=== PATIENT | male | born 1935 | race Caucasian/White ===

== ENCOUNTER → 2016-09-13 | Outpatient (CLI) | payer MEDICARE, BC ==
--- NOTE | 2016-09-14 13:30 | PE ---
EXAMINATION TYPE: PET CT fusion skull to thigh DATE OF EXAM: 09/13/2016 1:59 PM CLINICAL HISTORY: 80-year-old male restaging for lymph nodes, lung and prostate cancer. Last chemothe rapy in October 2015, last radiation therapy to the groin in 2009, and previous surgery in October. TECHNIQUE: Following the intravenous administration of 15.0 mCi of F-18 FDG, whole body images are performed from the skull base to the midthigh. Images are reviewed on the computer in the coronal, a xial, and sagittal planes. Reconstructed rotating images are created on independent workstation and reviewed on the computer. A localization and attenuation correction CT is performed in conjunction with the PET scan. Glucose level: 88 mg/dL COMPARISON: 08/13/2016 and 05/06/2016 FINDINGS: PET: Redemonstrated mediastinal lymphadenopathy in the high and low right paratracheal regions, precarinal region, and right tracheobronchial angle showing variable intense hypermetabolism, maximal SUV 7.1. These measure up to 1.8 cm. There are postsurgical changes of right upper lobectomy with chronic fibrotic changes throughout the lungs. A new 4 mm anterior left upper lobe pulmonary nodule axial image 74 shows faint FDG activity (maximum SUV 1.1). A 5 mm pulmonary nodule superior segment left lower lobe appears new from 05/06/2016 and a small 4 mm m edial left midlung pulmonary nodule also on axial image 85 not clearly seen on the most recent prior. These show no discrete FDG uptake. Hypodense lesions within both kidneys show no FDG uptake compatible with cysts. Physiologic FDG uptak e within the abdomen and pelvis. There is a new lytic lesion within the central L4 vertebral body with intense hypermetabolism, maximu m SUV 10.0. There is mild focal FDG uptake, maximal SUV 2.3, along the right posterolateral seventh rib which cou ld be posttraumatic or could represent early metastatic disease. ATTENUATION CORRECTION CT: Visualized paranasal sinuses and mastoid air cells are clear. No cervical lymphadenopathy seen. Heart remains upper limits of normal in size without pericardial effusion. Coronary vessel calcificat ions are marker for coronary artery disease. Fluid within basilar pericardial recesses. Similar ectas ia of the ascending aorta and 3.8 cm. Small to moderate-sized hiatal hernia. There is duplex right renal collecting system with atrophy of the right lower pole. 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 Left h emicolonic diverticulosis greatest in the sigmoid colon. Central prostatic calcifications. No abnormal fluid collection in the pelvis or pelvic lymphadenopath y seen. Bones: Degenerative changes throughout the spine with a levoconvex curvature. IMPRESSION: 1. Hypermetabolic and enlarged mediastinal lymphadenopathy measuring up to 1.8 cm and a new lytic les ion within L4 vertebral body compatible with metastatic disease. 2. Approximately 3 pulmonary nodules in the left lung measure up to 5 mm and were not clearly seen on the CT of 05/06/2016. One within the upper lobe shows faint FDG uptake. Metastatic pulmonary nodules n ot excluded. 3. Mild focal hypermetabolism within the right posterolateral seventh rib could be posttraumatic or c ould represent an additional focus of osseous metastatic disease. 4. 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
== END | disposition home or self-care (01) ==
LOC: RADPETMAIN 11:14
PROVIDERS: ATTEND Internal Medicine Hematology & Oncology
DX: C34.90 Malignant neoplasm of unspecified part of unspecified bronchus or lung (principal); R59.0 Localized enlarged lymph nodes; R91.8 Other nonspecific abnormal finding of lung field; J43.9 Emphysema, unspecified; E84.9 Cystic fibrosis, unspecified; Z90.2 Acquired absence of lung [part of]; K44.9 Diaphragmatic hernia without obstruction or gangrene; K57.30 Diverticulosis of large intestine without perforation or abscess without bleeding; I72.3 Aneurysm of iliac artery
CPT/HCPCS: 78815; A9552

== ENCOUNTER 2016-10-17 11:39 | Inpatient (IN) | payer MEDICARE, BC ==
[2016-10-17] MEDS ORDERED: SODIUM CHLORIDE 0.9% 1,000 ML IV STA ×2 (12:20)
[2016-10-17] MEDS ORDERED: IPRATROPIUM 0.5 MG/2.5 ML NEBU INHALATION STA (12:20)
[2016-10-17] MEDS ORDERED: ALBUTEROL NEBULIZED 2.5 MG/3 ML INHALATION STA (12:20)
[2016-10-17 12:46] LABS: Basophils % (A) 0 %; CHCM 32.3; Eosinophils % (A) 0 %; HCT 35.2 % (39.0-53.0); HDW 2.74; HGB 11.4 gm/dL (13.0-17.5); Luc % (Auto) 1; Lymphocytes # (A) 0.6 k/uL (1.0-4.8); Lymphocytes % (A) 5 %; MCH 31.2 pg (25.0-35.0); MCHC 32.3 g/dL (31.0-37.0); MCV 96.5 fL (80.0-100.0); Mean Platelet Volume 7.3; Monocytes # (A) 0.2 k/uL (0-1.0); Monocytes % (A) 2 %; Neutrophils # (A) 10.3 k/uL (1.3-7.7); Neutrophils % (A) 92 %; RBC 3.65 m/uL (4.30-5.90); RDW 14.8 % (11.5-15.5); WBC 11.3 k/uL (3.8-10.6); WBC (Perox) 11.16
[2016-10-17 12:57] LABS: Alkaline Phosphatase 116 U/L (38-126); Anion Gap 19 mmol/L; Blood Urea Nitrogen 37 mg/dL (9-20); Calcium 9.1 mg/dL (8.4-10.2); Carbon Dioxide 21 mmol/L (22-30); Chloride 95 mmol/L (98-107); Glucose 176 mg/dL (74-99); Magnesium 2.2 mg/dL (1.6-2.3); Non-African American GFR(MDRD) >60 (>60 ml/min/1.73 sqM); Potassium 5.3 mmol/L (3.5-5.1); Sodium 135 mmol/L (137-145); Total Bilirubin 1.3 mg/dL (0.2-1.3)
--- NOTE | 2016-10-17 12:58 | ED ---
General Adult HPI - General Chief complaint: Shortness of Breath Stated complaint: SOB, LOSS OF APPETITE, Hx LUNG Ca Time Seen by Provider: 10/17/16 12:03 Source: patient, RN notes reviewed, old records reviewed Mode of arrival: wheelchair Limitations: no limitations - History of Present Illness Initial comments: This is a 80-year-old male the ER for evaluation of severe shortness of breath, severe shortness of breath cough congestion. Patient does have significant history of lung CA and he does to breathe and she was at home with no help. Patient himself denies any fevers, family states he that increasing weakness and decreased activity level for about 2-3 days now. Patient does have recurrence of cancer now on his left thigh. No chest pain. No abdominal pain. - Related Data Home Medications Medication Instructions Recorded Confirmed Omeprazole 20 mg PO DAILY 12/30/15 10/17/16 Tamsulosin HCl [Flomax] 0.4 mg PO DAILY 12/30/15 10/17/16 ALPRAZolam [Xanax] 0.5 mg PO DAILY PRN 10/17/16 10/17/16 Acetaminophen [Tylenol] 500 mg PO Q4-6H PRN 10/17/16 10/17/16 Albuterol Inhaler [Ventolin Hfa 2 puff INHALATION RT-Q4H PRN 10/17/16 10/17/16 Inhaler] Folic Acid 1 mg PO SUMOTUWEFRSA 10/17/16 10/17/16 Hydroxychloroquine Sulfate 200 mg PO BID 10/17/16 10/17/16 [Plaquenil] Methotrexate Sodium (Pf) 25 mg INJ TH 10/17/16 10/17/16 [Methotrexate 25 mg/ml Vial] Multivitamins, Thera [Multivitamin] 1 tab PO DAILY 10/17/16 10/17/16 Allergies Allergy/AdvReac Type Severity Reaction Status Date / Time No Known Allergies Allergy Verified 10/17/16 12:57 Review of Systems ROS Statement: Those systems with pertinent positive or pertinent negative responses have been documented in the HPI. ROS Other: All systems not noted in ROS Statement are negative. 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, hx prostate cancer-tx with radiation, lung CA with chemo last treatment 12/22/15 History of Any Multi-Drug Resistant Organisms: None Reported Past Surgical History: Hernia Repair, Tonsillectomy Additional Past Surgical History / Comment(s): Chemo, radiation, Right lung lobectomy in 10/2015 Past Anesthesia/Blood Transfusion Reactions: No Reported Reaction Past Psychological History: No Psychological Hx Reported Smoking Status: Former smoker Past Alcohol Use History: None Reported Additional Past Alcohol Use History / Comment(s): quit smoking 07/2015 Past Drug Use History: None Reported - Past Family History Mother History Unknown: Yes Family Medical History: No Reported History Additional Family Medical History / Comment(s): Adopted General Exam Limitations: no limitations General appearance: alert, in distress, cachectic Head exam: Present: atraumatic, normocephalic, normal inspection Eye exam: Present: normal appearance, PERRL, EOMI. Absent: scleral icterus, conjunctival injection, periorbital swelling ENT exam: Present: mucous membranes dry Neck exam: Present: normal inspection. Absent: tenderness, meningismus, lymphadenopathy Respiratory exam: Present: respiratory distress, wheezes, accessory muscle use, decreased breath sounds, prolonged expiratory. Absent: rales, rhonchi, stridor Cardiovascular Exam: Present: regular rate, normal rhythm, normal heart sounds. Absent: systolic murmur, diastolic murmur, rubs, gallop, clicks GI/Abdominal exam: Present: soft, normal bowel sounds. Absent: distended, tenderness, guarding, rebound, rigid Extremities exam: Present: normal inspection, full ROM, normal capillary refill. Absent: tenderness, pedal edema, joint swelling, calf tenderness Back exam: Present: normal inspection Neurological exam: Present: alert, oriented X3, CN II-XII intact Psychiatric exam: Present: normal affect, normal mood Skin exam: Present: warm, dry, intact, normal color. Absent: rash Course Vital Signs 10/17/16 10/17/16 10/17/16 11:51 13:03 13:19 Temperature 97.2 F L Pulse Rate 114 H 109 H 111 H Respiratory 24 Rate Blood Pressure 128/86 O2 Sat by Pulse 93 L Oximetry 10/17/16 13:48 Temperature Pulse Rate 109 H Respiratory Rate Blood Pressure O2 Sat by Pulse Oximetry - Reevaluation(s) Reevaluation #1: 10/17/16 14:25 Patient with mild improvement of breathing treatment EKG Findings - EKG Comments: EKG Findings:: EKG shows sinus tachycardia rate 113, IN 120, QRS 90, QTC 425 Medical Decision Making - Medical Decision Making 80 male the ER for evaluation of shortness of breath, weakness for 2-3 days progressing, patient does have pneumonia we'll treat with antibiotics. Treatments IV fluids and supportive care. Patient also found to be hypoxic woke keep on continuous pulse ox and admitted for cardiopulmonary monitoring and monitoring of hemodynamic status - Lab Data Result diagrams: 10/17/16 12:34 10/17/16 12:34 Lab Results 10/17/16 10/17/16 10/17/16 Range/Units 12:34 12:34 12:34 WBC 11.3 H (3.8-10.6) k/uL RBC 3.65 L (4.30-5.90) m/uL Hgb 11.4 L (13.0-17.5) gm/dL Hct 35.2 L (39.0-53.0) % MCV 96.5 (80.0-100.0) fL MCH 31.2 (25.0-35.0) pg MCHC 32.3 (31.0-37.0) g/dL RDW 14.8 (11.5-15.5) % Plt Count 312 (150-450) k/uL Neutrophils % 92 % Lymphocytes % 5 % Monocytes % 2 % Eosinophils % 0 % Basophils % 0 % Neutrophils # 10.3 H (1.3-7.7) k/uL Lymphocytes # 0.6 L (1.0-4.8) k/uL Monocytes # 0.2 (0-1.0) k/uL Eosinophils # 0.0 (0-0.7) k/uL Basophils # 0.0 (0-0.2) k/uL PT (9.0-12.0) sec INR (<1.1) APTT (22.0-30.0) sec Sodium 135 L (137-145) mmol/L Potassium 5.3 H (3.5-5.1) mmol/L Chloride 95 L (98-107) mmol/L Carbon Dioxide 21 L (22-30) mmol/L Anion Gap 19 mmol/L BUN 37 H (9-20) mg/dL Creatinine 1.14 (0.66-1.25) mg/dL Est GFR (MDRD) Af Amer >60 (>60 ml/min/1.73 sqM) Est GFR (MDRD) Non-Af >60 (>60 ml/min/1.73 sqM) Glucose 176 H (74-99) mg/dL Calcium 9.1 (8.4-10.2) mg/dL Magnesium 2.2 (1.6-2.3) mg/dL Total Bilirubin 1.3 (0.2-1.3) mg/dL AST 2201 H (17-59) U/L ALT 2607 H (21-72) U/L Alkaline Phosphatase 116 (38-126) U/L Total Creatine Kinase 54 L (55-170) U/L CK-MB (CK-2) 0.7 (0.0-2.4) ng/mL CK-MB (CK-2) Rel Index 1.3 Troponin I <0.012 (0.000-0.034) ng/mL NT-Pro-B Natriuret Pep pg/mL Total Protein 7.0 (6.3-8.2) g/dL Albumin 3.8 (3.5-5.0) g/dL 10/17/16 10/17/16 Range/Units 12:34 12:34 WBC (3.8-10.6) k/uL RBC (4.30-5.90) m/uL Hgb (13.0-17.5) gm/dL Hct (39.0-53.0) % MCV (80.0-100.0) fL MCH (25.0-35.0) pg MCHC (31.0-37.0) g/dL RDW (11.5-15.5) % Plt Count (150-450) k/uL Neutrophils % % Lymphocytes % % Monocytes % % Eosinophils % % Basophils % % Neutrophils # (1.3-7.7) k/uL Lymphocytes # (1.0-4.8) k/uL Monocytes # (0-1.0) k/uL Eosinophils # (0-0.7) k/uL Basophils # (0-0.2) k/uL PT 16.3 H (9.0-12.0) sec INR 1.7 (<1.1) APTT 19.8 L (22.0-30.0) sec Sodium (137-145) mmol/L Potassium (3.5-5.1) mmol/L Chloride (98-107) mmol/L Carbon Dioxide (22-30) mmol/L Anion Gap mmol/L BUN (9-20) mg/dL Creatinine (0.66-1.25) mg/dL Est GFR (MDRD) Af Amer (>60 ml/min/1.73 sqM) Est GFR (MDRD) Non-Af (>60 ml/min/1.73 sqM) Glucose (74-99) mg/dL Calcium (8.4-10.2) mg/dL Magnesium (1.6-2.3) mg/dL Total Bilirubin (0.2-1.3) mg/dL AST (17-59) U/L ALT (21-72) U/L Alkaline Phosphatase (38-126) U/L Total Creatine Kinase (55-170) U/L CK-MB (CK-2) (0.0-2.4) ng/mL CK-MB (CK-2) Rel Index Troponin I (0.000-0.034) ng/mL NT-Pro-B Natriuret Pep 560 pg/mL Total Protein (6.3-8.2) g/dL Albumin (3.5-5.0) g/dL - Radiology Data Radiology results: report reviewed (Chest x-ray two-view positive for pneumonia) , image reviewed Critical Care Time Critical Care Time: Yes Total Critical Care Time: 31 Disposition Clinical Impression: Community acquired pneumonia, Acute exacerbation of chronic obstructive airways disease, Non-small cell lung cancer (NSCLC) Disposition: ADMITTED IP TO THIS HOSP Condition: Fair Referrals: Lisseth Mcginnis MD [Primary Care Provider] - 1-2 days
[2016-10-17 13:07] LABS: Creatine Kinase 54 U/L (55-170)
--- NOTE | 2016-10-17 13:07 | XR ---
EXAMINATION TYPE: XR chest 2V DATE OF EXAM: 10/17/2016 12:51 PM COMPARISON: Chest x-ray December 30, 2015. CT cap August 13, 2016. HISTORY: Difficulty in breathing. History of lung cancer. TECHNIQUE: Frontal and lateral views of the chest are obtained. FINDINGS: The osseous structures are demineralized. Degenerative change of both shoulders is redemon strated. There is persistent cardiomegaly with atherosclerotic and slightly ectatic thoracic aorta. T here is elevated anterior right hemidiaphragm with chronic parenchymal change redemonstrated bilatera lly. Some new mild interstitial edema may be present bilaterally. Some increased opacity right lung b ase is noted. No large pleural effusion or pneumothorax is present. IMPRESSION: Chronic parenchymal change and cardiomegaly with suspected mild new interstitial edema b ilaterally. Acute right basilar atelectasis and/or infiltrate is difficult to entirely exclude.
[2016-10-17 13:10] LABS: INR 1.7 (<1.1); Prothrombin Time 16.3 sec (9.0-12.0)
[2016-10-17 13:20] LABS: Creatine Kinase MB 0.7 ng/mL (0.0-2.4); Troponin I <0.012 ng/mL (0.000-0.034)
[2016-10-17 13:24] LABS: Partial Thromboplastin Time 19.8 sec (22.0-30.0)
[2016-10-17 13:27] LABS: ALT 2607 U/L (21-72); AST 2201 U/L (17-59)
[2016-10-17] MEDS ORDERED: PNEUMONIA PROTOCOL UTILIZED 1 EACH MISC PO PRN (14:23)
[2016-10-17] MEDS ORDERED: LEVOFLOXACIN 750MG-D5W PMX 750 MG in DEXTROSE/WATER 1 150ML.BAG IVPB STA (14:23)
[2016-10-17] MEDS ORDERED: RX INFO: IV CONTRAST WAS GIVEN 1 EACH MISC MISCELLANE PRN (14:40)
--- NOTE | 2016-10-17 16:02 | CT ---
EXAMINATION TYPE: CT angio chest DATE OF EXAM: 10/17/2016 3:33 PM COMPARISON: NONE HISTORY: Difficulty breathing, pneumonia CT DLP: 346.50 mGycm Automated exposure control for dose reduction was used. CONTRAST: CTA scan of the thorax is performed with IV Contrast, patient injected with 100 mL of Omnipaque 350, pulmonary embolism protocol. MIP images are created and reviewed. 3D reconstructed images are creat ed on an independent workstation and reviewed. FINDINGS: LUNGS: There are areas of consolidation within the lungs bilaterally with areas of bronchiectasis, ho neycombing and emphysema are present especially towards the lung bases. There are areas of pleural th ickening, minimal pleural effusions may be present. There may be some localized atelectasis or alveol itis. Subcentimeter and borderline centimeter nodules are present at the posterior lung bases. 11 mm nodules are present bilaterally and the largest seen. These are noncalcified. AORTA: No additional significant abnormality is seen. MEDIASTINUM: There is a large pericardial effusion present. This is developed in the interval. Extens ebony soft tissue within the mediastinum is noted, this may represent adenopathy. Apparent narrowing of the right pulmonary artery due to mass effect is similar to prior exam, subcarinal soft tissue is th ought to progressed in the interval. OTHER: Inferior vena cava is dilated. Posterior right-sided rib fracture shows minimal displacement at seventh rib posterior laterally, cortex is somewhat irregular, difficult to exclude a pathologic f racture. There may be gynecomastia change greater on the right. IMPRESSION: INTERVAL DEVELOPMENT OF A LARGE PERICARDIAL EFFUSION. METASTATIC DISEASE IS SUSPECTED. FINDINGS NIMA DAILY WITH PATIENT'S HISTORY OF LUNG CARCINOMA. Report related to patient's nurse, telephonically at the time of performance of the exam to
[2016-10-17] MEDS ORDERED: ALPRAZolam 0.5 MG TAB PO PRN (16:07)
[2016-10-17] MEDS ORDERED: ACETAMINOPHEN TAB 500 MG TAB PO PRN (16:07)
[2016-10-17] MEDS ORDERED: ALBUTEROL NEBULIZED 2.5 MG/3 ML INHALATION PRN (16:09)
[2016-10-17 17:05] LABS: Glucose,Whole Blood 137 mg/dL (75-99)
[2016-10-17] MEDS: IPRATROPIUM-ALBUTEROL 3 ML NEB INHALATION SCH ×2 (17:20→19:55)
[2016-10-17] MEDS: SODIUM CHLORIDE 0.9% 1,000 ML IV SCH (17:35)
[2016-10-17] MEDS: PANTOPRAZOLE 40 MG TABLET PO SCH (19:27)
[2016-10-17] MEDS: MULTIVITAMINS, THERA 1 EACH TAB PO SCH (19:27)
[2016-10-17] MEDS: FOLIC ACID 1 MG TAB PO SCH (19:27)
[2016-10-17] MEDS: TAMSULOSIN 0.4 MG CAP.ER.24H PO SCH (19:27)
[2016-10-17] MEDS: INSULIN LISPRO (humaLOG) 300 UNIT/3 ML VIAL SQ SCH ×2 (19:28→21:56)
--- NOTE | 2016-10-17 19:59 | ECHOF ---
Referral Reason:pericardial effusion MEASUREMENTS -------- HEIGHT: 157.5 cm WEIGHT: 83.9 kg BP: MV E Vincent: 0.55 m/s MV DecT: 302 ms MV A Vincent: 0.91 m/s MV E/A Ratio: 0.60 AV maxP.55 mmHg AV meanP.82 mmHg RAP: 5.00 mmHg RVSP: 47.77 mmHg FINDINGS -------- Undetermined rhythm. This was a technically adequate study. Overall left ventricular systolic function is low-normal with, an EF between 50 - 55 %. The right ventricle is normal in size. The left atrial size is normal. The right atrial size is normal. Peak/mean gradient across the Aortic Valve is 36.55mmHg / 16.82mmHg. Aov is stenotic with decrease opening. The aortic root size is normal. There is a large, generalized pericardial effusion present. There is no evidence of cardiac tamponade. RT ATRIAL COLLAPSE NOTED. CONCLUSIONS -------- 1. Overall left ventricular systolic function is low-normal with, an EF between 50 - 55 %. 2. Peak/mean gradient across the Aortic Valve is 36.55mmHg / 16.82mmHg. 3. Aov is stenotic with decrease opening. 4. There is a large, generalized pericardial effusion present. 5. There is no evidence of cardiac tamponade. INDUSTRIAL PARAMEDIC: Loretta Parikh RDCS
[2016-10-17 20:23] LABS: Glucose,Whole Blood 88 mg/dL (75-99)
--- NOTE | 2016-10-17 21:38 | CONS ---
DATE OF CONSULTATION: REASON FOR CONSULTATION: Pericardial effusion. This is a 80-year-old gentleman who presented to the emergency room with increasing shortness of breath that was going on for the last week or so, much worse probably in the last 2 days. He has history of lung cancer, status post right upper lobectomy for [id number] cancer performed about a year or less ago at [facility]. He sees Dr. Bravo from a pulmonary standpoint and Dr. Junior from oncology standpoint. Apparently they were considering performing lymph node biopsies to assess for any recurrence or spread of his lung cancer. However, his shortness of breath brought him to the hospital and a chest CT angiography was performed that revealed a large pericardial effusion with possibility of metastatic disease. I was asked to see him in this regard. Clinical evaluation suggests that patient is short of breath but not in severe distress. He is resting and he is able to talk continuously without having to hold his breath. He has no chest pain. He does not have any palpitations, syncope or near-syncope. PAST MEDICAL HISTORY: 1. Lung cancer, status post right upper lobectomy. 2. History of rheumatoid arthritis. 3. History of prostate cancer, status post radiation therapy for prostate cancer. 4. History of right upper lobectomy almost a year ago. He is a former smoker but does not consume alcohol on a regular basis. Medications at home include: 1. Flomax. 2. Xanax. 3. Albuterol. 4. Plaquenil. 5. Folic acid. 6. Methotrexate. 7. Omeprazole. 8. Multivitamins. ALLERGIES: NO KNOWN DRUG ALLERGIES. On examination, blood pressure 130/70. Pulse rate is about 80 per minute, sinus. HEENT unremarkable. Fundus was not examined by me. Neck is supple. There is a significant JVD noted. There is no carotid bruit. There is no evidence of any pulsus paradoxus. Heart exam reveals S1, S2, somewhat of a quiet precordium with an ejection systolic murmur at the base of the heart. Lungs reveal diminished air entry both bases, especially left base and right upper zone. Abdomen is soft, nontender. Lower extremities reveal diminished pulses. Central nervous system is grossly within normal limits. EKG revealed a sinus mechanism, minor nonspecific ST-T changes. Echocardiogram revealed a very large pericardial effusion with right atrial collapse in diastole. Right ventricular collapse is not evident. Laboratory data suggest elevated PT and also significantly elevated liver function tests, probably as a result of congestion of over 2000. IMPRESSION: 1. Large pericardial effusion with a near-tamponade physiology without actual tamponade. Patient is maintaining blood pressure very well and there is no pulsus paradoxus. 2. History of lung carcinoma, status post right upper lobectomy, [id number] cancer, under the care of Dr. Junior. 3. Mild aortic stenosis clinically and also based on echocardiogram. 4. History of prostate cancer with radiation therapy. RECOMMENDATIONS: I am recommending that we should proceed with pericardial window and also a tissue diagnosis if possible. I discussed this with the patient and his significant other and also talked to Dr. Hays by phone. They are all in agreement, and hopefully the procedure will be performed tomorrow. Will keep the patient n.p.o. after midnight. Prognosis remains guarded. Will seek input from Dr. Junior from the oncology standpoint as well.
[2016-10-17 21:40] LABS: Hemoglobin A1C 5.7 % (4.2-6.1)
[2016-10-17] MEDS: methylPREDNISolone SOD SUCCI 40 MG/ML 1 ML VIAL IV SCH (21:56)
[2016-10-17] MEDS: HYDROXYCHLOROQUINE SULFATE 200 MG TAB PO SCH (21:57)
[2016-10-18] MEDS ORDERED: DILTIAZEM 5 MG/ML 5 ML VIAL IVP STA ×2 (03:33→12:30)
[2016-10-18] MEDS: DILTIAZEM 125 MG in SODIUM CHLORIDE 0.9% 100 ML IV SCH ×2 (03:55→12:59)
[2016-10-18] MEDS: SODIUM CHLORIDE 0.9% 1,000 ML IV SCH ×2 (03:56→17:44)
[2016-10-18 05:06] LABS: Basophils % (A) 0 %; CH 30.9; Eosinophils % (A) 0 %; HCT 35.7 % (39.0-53.0); HDW 2.67; HGB 11.3 gm/dL (13.0-17.5); Luc # (Auto) 0.09; Luc % (Auto) 1; Lymphocytes # (A) 0.4 k/uL (1.0-4.8); Lymphocytes % (A) 4 %; MCH 30.7 pg (25.0-35.0); MCHC 31.6 g/dL (31.0-37.0); MCV 97.1 fL (80.0-100.0); Mean Platelet Volume 7.6; Monocytes # (A) 0.2 k/uL (0-1.0); Monocytes % (A) 1 %; Neutrophils % (A) 94 %; RBC 3.68 m/uL (4.30-5.90); RDW 14.4 % (11.5-15.5); WBC 10.7 k/uL (3.8-10.6); WBC (Perox) 11.41
[2016-10-18 05:08] LABS: INR 2.2 (<1.1); Prothrombin Time 21.4 sec (9.0-12.0)
[2016-10-18 05:16] LABS: Alkaline Phosphatase 112 U/L (38-126); Anion Gap 19 mmol/L; Blood Urea Nitrogen 39 mg/dL (9-20); Calcium 8.8 mg/dL (8.4-10.2); Carbon Dioxide 15 mmol/L (22-30); Chloride 99 mmol/L (98-107); Glucose 120 mg/dL (74-99); Non-African American GFR(MDRD) >60 (>60 ml/min/1.73 sqM); Potassium 5.4 mmol/L (3.5-5.1); Sodium 133 mmol/L (137-145); Total Bilirubin 2.4 mg/dL (0.2-1.3); Total Protein 6.6 g/dL (6.3-8.2)
[2016-10-18 05:42] LABS: ALT 4340 U/L (21-72); AST 3396 U/L (17-59)
[2016-10-18] MEDS: IPRATROPIUM-ALBUTEROL 3 ML NEB INHALATION SCH ×2 (07:38→10:50)
--- NOTE | 2016-10-18 08:08 | XR ---
EXAMINATION TYPE: XR chest 1V portable DATE OF EXAM: 10/18/2016 6:51 AM CLINICAL HISTORY: Difficulty breathing progress study. History of lung and prostate cancer. TECHNIQUE: Single AP portable upright view of the chest is obtained. COMPARISON: Chest x-ray and CTA chest from one day earlier FINDINGS: Osseous structures remain demineralized. Degenerative changes in both shoulders is again s een. There is persistent cardiomegaly without sclerotic and ectatic thoracic aorta. There is persiste nt elevated right hemidiaphragm chronic parenchymal changes seen bilaterally most pronounced in the l abelardo bases. Some areas of acute infiltrate and right lung are difficult to exclude. No large pleural e ffusion or pneumothorax is seen bilaterally. No significant change from prior study is identified. IMPRESSION: Overall stable findings, cardiomegaly with chronic emphysematous change and parenchymal fibrosis, areas of acute infiltrate particularly in the right lung base are difficult to exclude.
[2016-10-18] MEDS: INSULIN LISPRO (humaLOG) 300 UNIT/3 ML VIAL SQ SCH ×4 (08:13→21:16)
[2016-10-18 08:14] LABS: Glucose,Whole Blood 128 mg/dL (75-99)
[2016-10-18] MEDS: PANTOPRAZOLE 40 MG TABLET PO SCH (08:14)
[2016-10-18] MEDS ORDERED: ENOXAPARIN 40 MG/0.4 ML SYRINGE SQ SCH (09:00)
[2016-10-18] MEDS ORDERED: SODIUM BICARB 8.4% 50 ML SYR (1 MEQ/ML) IV STA (09:32)
[2016-10-18] MEDS ORDERED: CALCIUM GLUCONATE 1,000 MG in SODIUM CHLORIDE 0.9% 100 ML IVPB STA (09:32)
[2016-10-18] MEDS ORDERED: ceFAZolin 2 GM in SODIUM CHLORIDE 0.9% 100 ML IVPB ONE (09:45)
[2016-10-18] MEDS ORDERED: ETOMIDATE 2 MG/ML 10 ML VIAL ONE (10:19)
[2016-10-18] MEDS ORDERED: PHENYLEPHRINE-0.9% NACL SYG 1 MG/10 ML SYRINGE ONE (10:19)
[2016-10-18] MEDS ORDERED: MIDAZOLAM 2 MG/2 ML VIAL ONE (10:19)
[2016-10-18] MEDS ORDERED: ROCURONIUM BROMIDE 10 MG/ML 10 ML VIAL IV ONE (10:19)
[2016-10-18] MEDS ORDERED: fentaNYL (PF) 50 MCG/ML 2 ML AMP ONE (10:19)
[2016-10-18] MEDS ORDERED: SODIUM BICARB 8.4% 50 ML SYR (1 MEQ/ML) ONE (10:19)
[2016-10-18] MEDS ORDERED: LIDOCAINE 1% INJ 10MG/ML (20 ML MDV) ONE (10:19)
[2016-10-18] MEDS ORDERED: IV FLUID CONTINUATION 600 ML IV ONE (10:27)
[2016-10-18 10:31] LABS: ABG PCO2 20 mmHg (35-45); ABG PH 7.46 (7.35-7.45); ABG PO2 80 mmHg (83-108)
[2016-10-18 10:32] LABS: ABG Base Excess -9.4 mmol/L; ABG HCO3 14 mmol/L (21-25); ABG TCO2 14 mmol/L (19-24)
[2016-10-18] MEDS: HYDROXYCHLOROQUINE SULFATE 200 MG TAB PO SCH (10:50)
[2016-10-18] MEDS ORDERED: SODIUM CHLORIDE 0.9% 50 ML with ceFAZolin 2,000 MG IV ONE ×2 (10:55)
--- NOTE | 2016-10-18 10:57 | P.CNPUL ---
History of Present Illness Consult date: 10/18/16 Reason for consult: dyspnea, lung mass Chief complaint: Shortness of breath History of present illness: This is a 80-year-old male with a history of metastatic lung cancer. The patient apparently came with difficulty breathing. He was found to have a large pericardial effusion and may even have cardiac, tamponade. This morning, he was first off to the operating room for a pericardial window done by one of the thoracic surgeons. I was called about the patient last night. I spoke to one of the ER doctors last night. Initially, the patient did not want surgery. Unknot sure how it turned out that he ended up having surgery. Anyway the patient had an art line placed by the dissolver operator today. He was again he was rushed off to surgery. Dr. Nash was at the bedside as well as a dissolver operator the oncologist and also the thoracic surgeon. His past medical history includes metastatic lung cancer previously treated with lobectomy and chemo. He also apparently has a history of rheumatoid arthritis gastroesophageal reflux disease prostate cancer as well as some other minor more minor medical problems. In addition, he has had hernia repair tonsillectomy right upper lobectomy and prostate biopsy. Review of Systems A 12 point review of systems is positive for shortness of positive for decreased appetite and significant weight loss with weakness. Past Medical History Past Medical History: Cancer, COPD, GERD/Reflux, Pneumonia, Prostate Disorder, Rheumatoid Arthritis (RA) Additional Past Medical History / Comment(s): heart murmer as child, HIATAL HERNIA, CATARACTS,, CONSTIPATION,hx prostate cancer-tx with radiation, lung CA with chemo last treatment 12/22/15,"FOUND A SPOT ON MY SPINE AND A LYMPH NOSE" History of Any Multi-Drug Resistant Organisms: None Reported Past Surgical History: Hernia Repair, Tonsillectomy Additional Past Surgical History / Comment(s): BRONCHOCOSPY W/BX,Chemo, radiation AND Right lung lobectomy in 10/2015, PROSTATE BX, ELIJAH INGUINAL HERNIA REPAIR, CYST REMOVED FROM BACK. Past Anesthesia/Blood Transfusion Reactions: No Reported Reaction Past Psychological History: No Psychological Hx Reported Additional Psychological History / Comment(s): PT LIVES WITH DAUGHTER FREDY AND HER IVONNE, USES A CANE WHEN UP. NO OUTSIDE SERVICES. 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 Smoking Status: Former smoker Past Alcohol Use History: None Reported Additional Past Alcohol Use History / Comment(s): STARTED SMOKING AT AGE 15 , quit smoking 07/2015, HAD BEEN SMOKING 1 PPD Past Drug Use History: None Reported - Past Family History Mother History Unknown: Yes Family Medical History: No Reported History Additional Family Medical History / Comment(s): Adopted Medications and Allergies Home Medications Medication Instructions Recorded Confirmed Type Omeprazole 20 mg PO DAILY 12/30/15 10/17/16 History Tamsulosin HCl [Flomax] 0.4 mg PO DAILY 12/30/15 10/17/16 History ALPRAZolam [Xanax] 0.5 mg PO DAILY PRN 10/17/16 10/17/16 History Acetaminophen [Tylenol] 500 mg PO Q4-6H PRN 10/17/16 10/17/16 History Albuterol Inhaler [Ventolin Hfa 2 puff INHALATION RT-Q4H PRN 10/17/16 10/17/16 History Inhaler] Folic Acid 1 mg PO SUMOTUWEFRSA 10/17/16 10/17/16 History Hydroxychloroquine Sulfate 200 mg PO BID 10/17/16 10/17/16 History [Plaquenil] Methotrexate Sodium (Pf) 25 mg INJ TH 10/17/16 10/17/16 History [Methotrexate 25 mg/ml Vial] Multivitamins, Thera [Multivitamin] 1 tab PO DAILY 10/17/16 10/17/16 History Allergies Allergy/AdvReac Type Severity Reaction Status Date / Time No Known Allergies Allergy Verified 10/17/16 12:57 Physical Exam Osteopathic Statement: *. No significant issues noted on an osteopathic structural exam other than those noted in the History and Physical/Consult. Vitals: Vital Signs Temp Pulse Pulse Resp BP BP Pulse Ox 10/18/16 10:07 97.7 F 80 20 149/91 95 10/18/16 10:00 78 31 H 120/67 96 10/18/16 09:57 97.8 F 80 23 152/90 95 10/18/16 09:55 97.3 F L 106 H 20 138/64 95 10/18/16 09:32 97.3 F L 79 27 H 109/61 95 10/18/16 09:22 97.7 F 81 30 H 109/61 10/18/16 09:00 82 113/61 97 10/18/16 08:00 97.6 F 82 95 17 111/53 98 10/18/16 07:56 100 10/18/16 07:39 105 H 10/18/16 07:00 80 104/81 97 10/18/16 06:00 84 110/55 97 10/18/16 05:00 139 H 17 104/80 97 10/18/16 04:00 98.2 F 144 H 95 17 106/76 96 10/18/16 03:00 93 16 123/57 97 10/18/16 02:00 93 15 133/57 96 10/18/16 01:00 91 15 125/60 94 L 10/18/16 00:00 97 95 17 135/58 97 10/17/16 23:31 95 14 132/74 96 10/17/16 23:00 96 122/74 99 10/17/16 22:00 95 132/74 98 10/17/16 21:15 98.2 F 95 14 132/74 98 10/17/16 21:00 97 124/58 98 10/17/16 20:00 98.2 F 95 95 17 123/65 100 10/17/16 19:59 93 10/17/16 19:50 96 19 123/65 100 10/17/16 19:48 95 10/17/16 18:50 98 20 112/68 100 10/17/16 18:32 98 10/17/16 18:20 105 H 21 110/77 100 10/17/16 17:50 99 19 118/66 98 10/17/16 17:31 103 H 10/17/16 17:20 98.1 F 100 19 132/62 100 10/17/16 16:30 97.0 F L 107 H 20 113/65 97 10/17/16 14:47 97 F L 92 20 136/51 96 Intake and Output 10/17/16 10/18/16 10/18/16 22:59 06:59 14:59 Intake Total 225 600 522 Output Total 250 200 0 Balance -25 400 522 Intake: Intake, IV Titration 225 600 235 Amount Diltiazem 125 mg In 10 Sodium Chloride 0.9% 100 ml @ 10 MG/HR 10 mls/hr IV .[id number] [facility] Rx#: [id number] Sodium Chloride 0.9% 1, 225 525 000 ml @ 100 mls/hr IV . Q10H [facility] Rx#:[id number] Sodium Chloride 0.9% 1, 75 225 000 ml @ 75 mls/hr IV . [id number] [facility] Rx#:[id number] Blood Product 287 Ffp 24 Cpd Unit 287 [id number] Ffp 24 Cpd Unit 0 [id number] Output: Urine 250 200 0 Other: Voiding Method Urinal Urinal Urinal Weight 83.915 kg 80.7 kg 80.7 kg Patient Weight 10/19/16 06:59 Weight 80.7 kg ABP, PAP, CO, CI - Last 8 Hours Arterial Blood Pressure 137/82 No exam was performed. The patient was postop to surgery before had a chance to actually examine him. I'll examine him later today or tomorrow he is back from the operating room. Results - Laboratory Findings CBC and BMP: 10/18/16 04:42 10/18/16 04:42 ABG ABG pH 7.46 (7.35-7.45) H 10/18/16 10:03 ABG pCO2 20 mmHg (35-45) L* 10/18/16 10:03 ABG pO2 80 mmHg (83-108) L 10/18/16 10:03 ABG O2 Saturation 97.0 % (94-97) 10/18/16 10:03 PT/INR, D-dimer PT 21.4 sec (9.0-12.0) H 10/18/16 04:42 INR 2.2 (<1.1) 10/18/16 04:42 Abnormal lab findings: Abnormal Labs 10/17/16 10/18/16 10/18/16 17:03 04:42 04:42 WBC 10.7 H RBC 3.68 L Hgb 11.3 L Hct 35.7 L Neutrophils # 10.0 H Lymphocytes # 0.4 L PT 21.4 H ABG pH ABG pCO2 ABG pO2 ABG HCO3 ABG Total CO2 Sodium Potassium Carbon Dioxide BUN Glucose POC Glucose (mg/dL) 137 H Total Bilirubin AST ALT 10/18/16 10/18/16 10/18/16 04:42 07:57 10:03 WBC RBC Hgb Hct Neutrophils # Lymphocytes # PT ABG pH 7.46 H ABG pCO2 20 L* ABG pO2 80 L ABG HCO3 14 L ABG Total CO2 14 L Sodium 133 L Potassium 5.4 H Carbon Dioxide 15 L BUN 39 H Glucose 120 H POC Glucose (mg/dL) 128 H Total Bilirubin 2.4 H AST 3396 H ALT 4340 H - Diagnostic Findings Chest x-ray: image reviewed CT scan - chest: image reviewed (Chest x-ray labs medications are all reviewed.) Assessment and Plan (1) Cardiac tamponade Status: Acute (2) Pericardial effusion Status: Acute (3) Prostate cancer Status: Acute (4) Metastatic lung cancer (metastasis from lung to other site) Status: Acute (5) Non-small cell lung cancer (NSCLC) Status: Acute Plan: Plan dated 10/18/2016 The patient's taken to the operating room for emergent pericardial window. See the patient when he gets back to the operating room. Hopefully he'll be extubated in the recovery area. If not we'll continue to follow him here. Yesterday when I was initially called he was a DO NOT RESUSCITATE and did not want surgery. Obviously something changed to the night. We'll continue to follow. Prognosis is guarded. Time with Patient: Greater than 30
[2016-10-18 11:25] LABS: ABG Base Excess -5.8 mmol/L; ABG HCO3 19 mmol/L (21-25); ABG Oxygen Saturation 98.7 % (94-97); ABG PCO2 35 mmHg (35-45); ABG PH 7.35 (7.35-7.45); ABG PO2 178 mmHg (83-108)
[2016-10-18] MEDS ORDERED: LACTATED RINGERS 1,000 ML IV ONE (11:40)
[2016-10-18] MEDS ORDERED: Magnesium Replacement Protocol 1 EACH MISC MISCELLANE PRN (12:06)
[2016-10-18] MEDS ORDERED: Potassium Replacement Protocol 1 EACH MISC MISCELLANE PRN (12:06)
--- NOTE | 2016-10-18 12:12 | OP ---
DATE OF SERVICE: 10/18/2016 SURGEON: Bala Hays MD ANALYTICAL TECH: Cahrly Agustin, physician medical assistant dermatology. PREOPERATIVE DIAGNOSIS: Large pericardial effusion with early tamponade, rule out metastatic lung cancer. POSTOPERATIVE DIAGNOSIS: Large pericardial effusion with early tamponade, rule out metastatic lung cancer, pending pathology. OPERATION: Subxiphoid pericardiostomy. ANESTHESIA: ESTIMATED BLOOD LOSS: SPECIMENS REMOVED: COMPLICATIONS: OPERATIVE FINDINGS: INDICATION FOR SURGERY: The patient is a 80-year-old gentleman admitted with shortness of breath. A CAT scan performed showed a large pericardial effusion. A 2-D echo followed and that showed a very large pericardial effusion with early atrial collapse but no ventricular collapse. Patient was scheduled for pericardial window. In the interim, he had an episode of atrial fibrillation with rapid ventricular response with reasonable blood pressure. However, his liver function test shows very elevated liver enzymes and he has got a compensated metabolic acidosis on his blood gas. Patient has been taken for urgent subxiphoid pericardiostomy. Risks, benefits, and alternatives were discussed with him. He understood them and agreed to proceed. DESCRIPTION OF THE PROCEDURE: Patient was brought to the operating room and prepped and draped using DuraPrep before induction of anesthesia. He received 2 grams of cefazolin intravenously. Again the chest and abdomen prepped, induction followed with hemodynamic stability. A 6 cm incision was made centered on the tip of the xiphoid bone which was protruding. The midline fascia was opened and dissection proceeded preperitoneally and behind the sternum. We uncovered the tense bluish pericardium. An opening was made in the pericardium with a 15 blade and a specimen was sent for cell count. A bigger opening was made and a small piece of pericardium was sent to pathology and we suctioned a total of around 800 mL of bloody pericardial effusion. The pericardium appeared thin, nonpathological. From what I see on the right ventricle, there were no obvious metastatic deposits. We had no SKYLA in the OR. A 32[place] right angle chest tube was brought out through a separate stab incision below the surgical incision and directed into the posterior pericardium inferior to the right ventricle by the diaphragm. It was affixed to the skin with Ethibond 0 suture. At this point with again continuous hemodynamic stability, the fascia was closed using Vicryl 0. The subcutaneous tissue was closed in layers as well as the skin in subcuticular manner. Skin glue was applied. Minimal blood loss. SPECIMENS: We sent the whole pericardial fluid for cytology as well as the pericardial piece for pathology. Patient tolerated the procedure well and was transferred to the ICU in stable condition.
[2016-10-18] MEDS ORDERED: MORPHINE SULFATE 2 MG/ML SYRINGE ONE (12:14)
[2016-10-18] MEDS ORDERED: DEXTROSE 5% IN WATER 100 ML with AMIODARONE 150 MG IV ONE (12:30)
[2016-10-18 12:39] LABS: Glucose,Whole Blood 120 mg/dL (75-99)
[2016-10-18 12:45] LABS: ABG PCO2 36 mmHg (35-45); ABG PH 7.38 (7.35-7.45)
[2016-10-18] MEDS ORDERED: PROPOFOL 500 MG in EMPTY BAG 1 BAG IV SCH (12:45)
[2016-10-18 12:46] LABS: ABG Base Excess -3.4 mmol/L; ABG HCO3 21 mmol/L (21-25); ABG PO2 275 mmHg (83-108); ABG TCO2 22 mmol/L (19-24)
--- NOTE | 2016-10-18 12:55 | XR ---
EXAMINATION TYPE: XR chest 1V portable DATE OF EXAM: 10/18/2016 12:49 PM CLINICAL HISTORY: Had to be intubated. TECHNIQUE: Single AP portable upright view of the chest is obtained. COMPARISON: Chest x-ray from earlier today FINDINGS: There is new endotracheal tube with tip at aortic knob level, approximately 3 to 4 cm above the mary. There is new orogastric tube projecting below left hemidiaphragm. Osseous structures remain demineralized. Degenerative changes in both shoulders is redemonstrated. Th ere is persistent cardiomegaly with atherosclerotic and ectatic thoracic aorta. There is persistent e levated right hemidiaphragm with chronic parenchymal changes seen bilaterally most pronounced in the lung bases. Some areas of acute infiltrate in the right lung are difficult to exclude but felt stable . No pneumothorax is seen bilaterally. Small bilateral pleural effusions are difficult to exclude. IMPRESSION: 1. New endotracheal tube and orogastric tube are satisfactory in position. 2. Cardiomegaly with chronic parenchymal fibrosis bilaterally and possible right basilar atelectasis and/or infiltrate not significantly changed from prior exam. New small bilateral pleural effusions ar e difficult to exclude.
[2016-10-18] MEDS: TAMSULOSIN 0.4 MG CAP.ER.24H PO SCH (13:14)
[2016-10-18] MEDS: FOLIC ACID 1 MG TAB PO SCH (13:15)
[2016-10-18] MEDS: MULTIVITAMINS, THERA 1 EACH TAB PO SCH (13:15)
[2016-10-18] MEDS: AMIODARONE 450 MG in DEXTROSE 5% IN WATER 250 ML IV SCH ×4 (13:17→22:05)
[2016-10-18 13:29] LABS: INR 2.1 (<1.1); Partial Thromboplastin Time 24.2 sec (22.0-30.0); Prothrombin Time 20.6 sec (9.0-12.0)
[2016-10-18 13:31] LABS: Alkaline Phosphatase 104 U/L (38-126); Anion Gap 16 mmol/L; Blood Urea Nitrogen 42 mg/dL (9-20); Calcium 8.6 mg/dL (8.4-10.2); Carbon Dioxide 22 mmol/L (22-30); Chloride 101 mmol/L (98-107); Glucose 134 mg/dL (74-99); Non-African American GFR(MDRD) >60 (>60 ml/min/1.73 sqM); Potassium 4.1 mmol/L (3.5-5.1); Sodium 139 mmol/L (137-145); Total Bilirubin 2.6 mg/dL (0.2-1.3); Total Protein 6.4 g/dL (6.3-8.2)
[2016-10-18 13:43] LABS: Basophils % (A) 0 %; CH 31.8; CHCM 33.4; Eosinophils % (A) 0 %; HCT 33.8 % (39.0-53.0); HDW 2.69; HGB 10.9 gm/dL (13.0-17.5); Luc # (Auto) 0.08; Luc % (Auto) 1; Lymphocytes # (A) 0.5 k/uL (1.0-4.8); Lymphocytes % (A) 4 %; MCH 30.8 pg (25.0-35.0); MCHC 32.3 g/dL (31.0-37.0); MCV 95.5 fL (80.0-100.0); Mean Platelet Volume 8.2; Monocytes # (A) 0.1 k/uL (0-1.0); Monocytes % (A) 1 %; Neutrophils # (A) 12.8 k/uL (1.3-7.7); Neutrophils % (A) 95 %; RBC 3.54 m/uL (4.30-5.90); RDW 14.7 % (11.5-15.5); WBC 13.5 k/uL (3.8-10.6); WBC (Perox) 13.96
--- NOTE | 2016-10-18 13:51 | P.HPIM ---
History of Present Illness H&P Date: 10/18/16 Chief Complaint: Shortness of breath Patient is intubated and unable to provide medical history. Medical history was obtained by chart review and nursing staff report. This is 80-year-old gentleman with past medical history noted below significant for history of lung cancer status post right lobectomy and prior chemotherapy treatment that presented to the emergency room with worsening shortness of breath and dyspnea. Patient was evaluated and chest x-ray initially showed evidence of significant enlargement in the cardiac silhouette. He was thought that patient had pneumonia and was started on antibiotic. Computed tomography scan of the chest was obtained showing a large pericardial effusion. Patient remained hemodynamically stable. He was eventually transferred to the intensive care unit for close monitoring. Bedside echocardiogram was obtained showing preserved ejection fraction with large pericardial effusion and no evidence of temporal now. Cardiology and cardiothoracic surgery will consult fluids. Patient underwent a pericardial window this morning in the OR. He is currently intubated and just got transferred back to the intensive care unit. Review of Systems Review of system: 14 points review of systems were obtained and were negative except to what were mentioned in the HPI. Past Medical History Past Medical History: Cancer, COPD, GERD/Reflux, Pneumonia, Prostate Disorder, Rheumatoid Arthritis (RA) Additional Past Medical History / Comment(s): heart murmer as child, HIATAL HERNIA, CATARACTS,, CONSTIPATION,hx prostate cancer-tx with radiation, lung CA with chemo last treatment 12/22/15,"FOUND A SPOT ON MY SPINE AND A LYMPH NOSE" History of Any Multi-Drug Resistant Organisms: None Reported Past Surgical History: Hernia Repair, Tonsillectomy Additional Past Surgical History / Comment(s): BRONCHOCOSPY W/BX,Chemo, radiation AND Right lung lobectomy in 10/2015, PROSTATE BX, ELIJAH INGUINAL HERNIA REPAIR, CYST REMOVED FROM BACK. Past Anesthesia/Blood Transfusion Reactions: No Reported Reaction Past Psychological History: No Psychological Hx Reported Additional Psychological History / Comment(s): PT LIVES WITH DAUGHTER FREDY AND HER IVONNE, USES A CANE WHEN UP. NO OUTSIDE SERVICES. 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 Smoking Status: Former smoker Past Alcohol Use History: None Reported Additional Past Alcohol Use History / Comment(s): STARTED SMOKING AT AGE 15 , quit smoking 07/2015, HAD BEEN SMOKING 1 PPD Past Drug Use History: None Reported - Past Family History Mother History Unknown: Yes Family Medical History: No Reported History Additional Family Medical History / Comment(s): Adopted Medications and Allergies Home Medications Medication Instructions Recorded Confirmed Type Omeprazole 20 mg PO DAILY 12/30/15 10/17/16 History Tamsulosin HCl [Flomax] 0.4 mg PO DAILY 12/30/15 10/17/16 History ALPRAZolam [Xanax] 0.5 mg PO DAILY PRN 10/17/16 10/17/16 History Acetaminophen [Tylenol] 500 mg PO Q4-6H PRN 10/17/16 10/17/16 History Albuterol Inhaler [Ventolin Hfa 2 puff INHALATION RT-Q4H PRN 10/17/16 10/17/16 History Inhaler] Folic Acid 1 mg PO SUMOTUWEFRSA 10/17/16 10/17/16 History Hydroxychloroquine Sulfate 200 mg PO BID 10/17/16 10/17/16 History [Plaquenil] Methotrexate Sodium (Pf) 25 mg INJ TH 10/17/16 10/17/16 History [Methotrexate 25 mg/ml Vial] Multivitamins, Thera [Multivitamin] 1 tab PO DAILY 10/17/16 10/17/16 History Allergies Allergy/AdvReac Type Severity Reaction Status Date / Time No Known Allergies Allergy Verified 10/17/16 12:57 Physical Exam Vitals: Vital Signs Temp Pulse Pulse Resp BP BP Pulse Ox 10/18/16 12:07 96.8 F L 82 14 118/67 95 10/18/16 10:07 97.7 F 80 20 149/91 95 10/18/16 10:00 78 31 H 120/67 96 10/18/16 09:57 97.8 F 80 23 152/90 95 10/18/16 09:55 97.3 F L 106 H 20 138/64 95 10/18/16 09:32 97.3 F L 79 27 H 109/61 95 10/18/16 09:22 97.7 F 81 30 H 109/61 10/18/16 09:00 82 113/61 97 10/18/16 08:00 97.6 F 82 95 17 111/53 98 10/18/16 07:56 100 10/18/16 07:39 105 H 10/18/16 07:00 80 104/81 97 10/18/16 06:00 84 110/55 97 10/18/16 05:00 139 H 17 104/80 97 10/18/16 04:00 98.2 F 144 H 95 17 106/76 96 10/18/16 03:00 93 16 123/57 97 10/18/16 02:00 93 15 133/57 96 10/18/16 01:00 91 15 125/60 94 L 10/18/16 00:00 97 95 17 135/58 97 10/17/16 23:31 95 14 132/74 96 10/17/16 23:00 96 122/74 99 10/17/16 22:00 95 132/74 98 10/17/16 21:15 98.2 F 95 14 132/74 98 10/17/16 21:00 97 124/58 98 10/17/16 20:00 98.2 F 95 95 17 123/65 100 10/17/16 19:59 93 10/17/16 19:50 96 19 123/65 100 10/17/16 19:48 95 10/17/16 18:50 98 20 112/68 100 10/17/16 18:32 98 10/17/16 18:20 105 H 21 110/77 100 10/17/16 17:50 99 19 118/66 98 10/17/16 17:31 103 H 10/17/16 17:20 98.1 F 100 19 132/62 100 10/17/16 16:30 97.0 F L 107 H 20 113/65 97 10/17/16 14:47 97 F L 92 20 136/51 96 Intake and Output 10/17/16 10/18/16 10/18/16 22:59 06:59 14:59 Intake Total 546 844 9339 Output Total 644 237 7010 Balance -25 400 687 Intake: IV 850 Intake, IV Titration 225 600 488 Amount Calcium Gluconate 1,000 100 mg In Sodium Chloride 0.9 % 100 ml @ 100 mls/hr IVPB ONCE [facility] Rx#: [id number] Diltiazem 125 mg In 88 Sodium Chloride 0.9% 100 ml @ 10 MG/HR 10 mls/hr IV .[id number] [facility] Rx#: [id number] Sodium Chloride 0.9% 1, 225 525 000 ml @ 100 mls/hr IV . Q10H [facility] Rx#:[id number] Sodium Chloride 0.9% 1, 75 300 000 ml @ 75 mls/hr IV . [id number] [facility] Rx#:[id number] Blood Product 574 Ffp 24 Cpd Unit 287 [id number] Ffp 24 Cpd Unit 287 [id number] Output: Urine 250 200 425 Estimated Blood Loss 800 Other: Voiding Method Urinal Urinal Urinal Weight 83.915 kg 80.7 kg 80.7 kg Patient Weight 10/19/16 06:59 Weight 80.7 kg ABP, PAP, CO, CI - Last 8 Hours Arterial Blood Pressure 137/82 General: The patient is intubated. He appears slightly uncomfortable. Eye: there is normal conjunctiva bilaterally. Neck: The neck is supple, there is no JVD. Cardiovascular: Normal S1-S2, no S3-S4, no murmurs. Chest tube to anterior chest Respiratory: Lungs with mechanical ventilator sounds to anterior chest auscultation Gastrointestinal: Abdomen is soft, nontender, nondistended, Musculoskeletal: There is no pedal edema. Skin: Skin is warm and dry Results CBC & Chem 7: 10/18/16 04:42 10/18/16 13:06 Labs: Abnormal Lab Results - Last 24 Hours (Table) 10/17/16 10/18/16 10/18/16 Range/Units 17:03 04:42 04:42 WBC 10.7 H (3.8-10.6) k/uL RBC 3.68 L (4.30-5.90) m/uL Hgb 11.3 L (13.0-17.5) gm/dL Hct 35.7 L (39.0-53.0) % Neutrophils # 10.0 H (1.3-7.7) k/uL Lymphocytes # 0.4 L (1.0-4.8) k/uL PT 21.4 H (9.0-12.0) sec ABG pH (7.35-7.45) ABG pCO2 (35-45) mmHg ABG pO2 (83-108) mmHg ABG HCO3 (21-25) mmol/L ABG Total CO2 (19-24) mmol/L ABG O2 Saturation (94-97) % Sodium (137-145) mmol/L Potassium (3.5-5.1) mmol/L Carbon Dioxide (22-30) mmol/L BUN (9-20) mg/dL Glucose (74-99) mg/dL POC Glucose (mg/dL) 137 H (75-99) mg/dL Total Bilirubin (0.2-1.3) mg/dL AST (17-59) U/L ALT (21-72) U/L Albumin (3.5-5.0) g/dL 10/18/16 10/18/16 10/18/16 Range/Units 04:42 07:57 10:03 WBC (3.8-10.6) k/uL RBC (4.30-5.90) m/uL Hgb (13.0-17.5) gm/dL Hct (39.0-53.0) % Neutrophils # (1.3-7.7) k/uL Lymphocytes # (1.0-4.8) k/uL PT (9.0-12.0) sec ABG pH 7.46 H (7.35-7.45) ABG pCO2 20 L* (35-45) mmHg ABG pO2 80 L (83-108) mmHg ABG HCO3 14 L (21-25) mmol/L ABG Total CO2 14 L (19-24) mmol/L ABG O2 Saturation (94-97) % Sodium 133 L (137-145) mmol/L Potassium 5.4 H (3.5-5.1) mmol/L Carbon Dioxide 15 L (22-30) mmol/L BUN 39 H (9-20) mg/dL Glucose 120 H (74-99) mg/dL POC Glucose (mg/dL) 128 H (75-99) mg/dL Total Bilirubin 2.4 H (0.2-1.3) mg/dL AST 3396 H (17-59) U/L ALT 4340 H (21-72) U/L Albumin (3.5-5.0) g/dL 10/18/16 10/18/16 10/18/16 Range/Units 11:07 12:22 12:39 WBC (3.8-10.6) k/uL RBC (4.30-5.90) m/uL Hgb (13.0-17.5) gm/dL Hct (39.0-53.0) % Neutrophils # (1.3-7.7) k/uL Lymphocytes # (1.0-4.8) k/uL PT (9.0-12.0) sec ABG pH (7.35-7.45) ABG pCO2 (35-45) mmHg ABG pO2 178 H 275 H (83-108) mmHg ABG HCO3 19 L (21-25) mmol/L ABG Total CO2 (19-24) mmol/L ABG O2 Saturation 98.7 H 100.0 H (94-97) % Sodium (137-145) mmol/L Potassium (3.5-5.1) mmol/L Carbon Dioxide (22-30) mmol/L BUN (9-20) mg/dL Glucose (74-99) mg/dL POC Glucose (mg/dL) 120 H (75-99) mg/dL Total Bilirubin (0.2-1.3) mg/dL AST (17-59) U/L ALT (21-72) U/L Albumin (3.5-5.0) g/dL 10/18/16 10/18/16 Range/Units 13:06 13:06 WBC (3.8-10.6) k/uL RBC (4.30-5.90) m/uL Hgb (13.0-17.5) gm/dL Hct (39.0-53.0) % Neutrophils # (1.3-7.7) k/uL Lymphocytes # (1.0-4.8) k/uL PT 20.6 H (9.0-12.0) sec ABG pH (7.35-7.45) ABG pCO2 (35-45) mmHg ABG pO2 (83-108) mmHg ABG HCO3 (21-25) mmol/L ABG Total CO2 (19-24) mmol/L ABG O2 Saturation (94-97) % Sodium (137-145) mmol/L Potassium (3.5-5.1) mmol/L Carbon Dioxide (22-30) mmol/L BUN 42 H (9-20) mg/dL Glucose 134 H (74-99) mg/dL POC Glucose (mg/dL) (75-99) mg/dL Total Bilirubin 2.6 H (0.2-1.3) mg/dL AST (17-59) U/L ALT (21-72) U/L Albumin 3.4 L (3.5-5.0) g/dL Assessment and Plan Plan: 1. Large pericardial effusion, most likely malignant, status post pericardial window postoperative day #0. Cardiothoracic surgery following closely. 2. Atrial fibrillation with rapid ventricular response: New onset, cardiology following closely. Currently on IV Cardizem. 3. History of right lung carcinoma status post upper lobectomy: Now with evidence of recurrence and then Desitin or lymphadenopathy noted on CT. Awaiting oncology evaluation 4. Acute liver failure with significant transaminitis: Exact etiology unclear to me. Patient remained hemodynamically stable. We will check liver ultrasound and hepatitis panel. Possibly attributed to liver congestion. Rule out liver metastasis. 5. Coagulopathy with elevated INR: Secondary to acute liver failure 6. Right lower lobe pneumonia on IV Levaquin 7. History of rheumatoid arthritis 8. History of prostate cancer with prior radiation therapy 9. Benign prostatic hyperplasia We will continue ICU care. Appreciate retail consultant's recommendations. Continue IV Cardizem and amiodarone as directed by cardiology. Repeat lab work in the morning. GI prophylaxis with Protonix. SCDs for DVT prophylaxis and continue to monitor INR daily.
--- NOTE | 2016-10-18 14:03 | US ---
EXAMINATION TYPE: US liver DATE OF EXAM: 10/18/2016 1:37 PM COMPARISON: CT scan dated 13 August 2016, October 17, 2016 CLINICAL HISTORY: acute liver failure. EXAM MEASUREMENTS: Liver Length: 15.8 cm Gallbladder Wall: 0.7 cm CBD: 0.6 cm Right Kidney: 10.1 x 5.2 x 5.2 cm TECHNOLOGIST IMPRESSION: ICU patient post op 1 hour, is on a vent and has midline bandaging Pancreas: unable to visualize Liver: portions visualized wnl, unable to visualize in its entirety Gallbladder: wall appears edematous, possible free fluid adjacent. There may be some low-level general internist and physician leader al echoes suggesting tumefactive sludge Evidence for sonographic Tang's sign: CBD: slight dilation Right Kidney: cyst noted upper pole, limited visualization, inferior pole not seen Right pleural effusion noted IMPRESSION: Exam is limited. Correlate for cholecystitis.
[2016-10-18 14:06] LABS: ALT 4803 U/L (21-72)
[2016-10-18 14:12] LABS: RBC, Body Fluid 765000 /uL
[2016-10-18 14:15] LABS: AST 4285 U/L (17-59)
[2016-10-18] MEDS: LEVOFLOXACIN 750MG-D5W PMX 750 MG in DEXTROSE/WATER 1 150ML.BAG IVPB SCH (15:24)
[2016-10-18 15:56] LABS: ABG Base Excess -2.9 mmol/L; ABG HCO3 20 mmol/L (21-25); ABG PCO2 30 mmHg (35-45); ABG PH 7.45 (7.35-7.45); ABG PO2 134 mmHg (83-108); ABG TCO2 21 mmol/L (19-24)
[2016-10-18] MEDS ORDERED: IPRATROPIUM 0.5 MG/2.5 ML NEBU INHALATION SCH ×3 (16:00→20:00)
[2016-10-18] MEDS ORDERED: ceFAZolin 2 GM in SODIUM CHLORIDE 0.9% 100 ML IVPB SCH (16:00)
[2016-10-18] MEDS ORDERED: LEVALBUTEROL NEB (CONC) 1.25 MG/0.5 ML AMP INHALATION SCH ×3 (16:00→20:00)
--- NOTE | 2016-10-18 16:59 | PN ---
Mr. Schafer was seen by me last night with a large pericardial effusion and a near tamponade physiology. This morning, he went into atrial fibrillation and is going in and out of A. fib. I placed an arterial line and he is going to go for a window procedure today, which will give him a lot of relief. I spoke to Dr. Hays. Vital signs are stable. Blood pressure is 128/70, pulse rate is 70, sinus, but he is in and out of A. fib a lot. JVD is evident. S1, S2 heard normally. Heart sounds heard distantly. Lungs reveal diminished air entry both bases. Abdomen and lower extremities unchanged. He will be going for a pericardial window procedure today for a probable malignant pericardial effusion and previous history of lung cancer, status post right upper lobectomy.
[2016-10-18 17:31] LABS: Glucose,Whole Blood 156 mg/dL (75-99)
[2016-10-18] MEDS ORDERED: LEVALBUTEROL NEB (CONC) 1.25 MG/0.5 ML AMP INHALATION PRN ×2 (19:07→19:41)
[2016-10-18] MEDS ORDERED: IPRATROPIUM 0.5 MG/2.5 ML NEBU INHALATION PRN ×2 (19:07→19:40)
[2016-10-18] MEDS ORDERED: IPRATROPIUM-ALBUTEROL 3 ML NEB INHALATION PRN (20:07)
[2016-10-18 21:14] LABS: Glucose,Whole Blood 110 mg/dL (75-99)
[2016-10-18] MEDS: CHLORHEXIDINE GLUCONATE 15 ML CUP MUCOUS MEM SCH (21:16)
[2016-10-19] MEDS: DILTIAZEM 125 MG in SODIUM CHLORIDE 0.9% 100 ML IV SCH ×2 (01:29→13:02)
[2016-10-19 05:02] LABS: Basophils % (A) 0 %; CH 31.2; CHCM 33.5; Eosinophils # (A) 0.1 k/uL (0-0.7); Eosinophils % (A) 0 %; HCT 30.2 % (39.0-53.0); HDW 2.72; HGB 10.1 gm/dL (13.0-17.5); Luc # (Auto) 0.09; Luc % (Auto) 1; Lymphocytes # (A) 0.7 k/uL (1.0-4.8); Lymphocytes % (A) 4 %; MCH 31.5 pg (25.0-35.0); MCHC 33.6 g/dL (31.0-37.0); MCV 93.6 fL (80.0-100.0); Monocytes # (A) 0.2 k/uL (0-1.0); Monocytes % (A) 1 %; Neutrophils # (A) 14.1 k/uL (1.3-7.7); Neutrophils % (A) 93 %; RBC 3.22 m/uL (4.30-5.90); RDW 14.6 % (11.5-15.5); WBC 15.1 k/uL (3.8-10.6); WBC (Perox) 14.94
[2016-10-19 05:11] LABS: INR 2.4 (<1.1); Prothrombin Time 23.6 sec (9.0-12.0)
[2016-10-19] MEDS: AMIODARONE 450 MG in DEXTROSE 5% IN WATER 250 ML IV SCH ×4 (05:30→13:02)
[2016-10-19 05:48] LABS: Alkaline Phosphatase 101 U/L (38-126); Anion Gap 10 mmol/L; Blood Urea Nitrogen 49 mg/dL (9-20); Calcium 8.4 mg/dL (8.4-10.2); Carbon Dioxide 26 mmol/L (22-30); Chloride 102 mmol/L (98-107); Glucose 100 mg/dL (74-99); Magnesium 2.4 mg/dL (1.6-2.3); Non-African American GFR(MDRD) >60 (>60 ml/min/1.73 sqM); Phosphorous 2.7 mg/dL (2.5-4.5); Potassium 4.4 mmol/L (3.5-5.1); Sodium 138 mmol/L (137-145); Total Protein 5.6 g/dL (6.3-8.2)
[2016-10-19 06:10] LABS: AST 2078 U/L (17-59)
[2016-10-19 06:11] LABS: ALT 3414 U/L (21-72)
--- NOTE | 2016-10-19 07:32 | XR ---
EXAMINATION TYPE: XR chest 1V portable DATE OF EXAM: 10/19/2016 6:42 AM COMPARISON: Prior chest x-ray 18 October 2016 HISTORY: Extubated, abnormal chest x-ray TECHNIQUE: Single frontal view of the chest is obtained. FINDINGS: There is been interval removal of the endotracheal tube, NG tube. There are overlying card iac leads, no significant interval change. IMPRESSION: Interval extubation. Correlate for congestive heart failure versus pneumonia. Additional follow-up recommended.
[2016-10-19] MEDS: IPRATROPIUM-ALBUTEROL 3 ML NEB INHALATION SCH ×2 (07:53→11:15)
[2016-10-19 08:11] LABS: Glucose,Whole Blood 97 mg/dL (75-99)
[2016-10-19] MEDS: SODIUM CHLORIDE 0.9% 1,000 ML IV SCH ×3 (08:37→14:54)
[2016-10-19] MEDS: PANTOPRAZOLE 40 MG/10 ML VIAL IVP SCH (08:37)
[2016-10-19] MEDS: INSULIN LISPRO (humaLOG) 300 UNIT/3 ML VIAL SQ SCH ×4 (08:38→20:56)
[2016-10-19] MEDS: CHLORHEXIDINE GLUCONATE 15 ML CUP MUCOUS MEM SCH (08:38)
--- NOTE | 2016-10-19 09:16 | PCN ---
DATE OF PROCEDURE: 10/18/2016 PROCEDURE: Right radial arterial line placement. PERFORMED BY: Dr. Ananda Morales. PROCEDURE NOTE: Mr. Temo Schafer presented with a large pericardial effusion with a near tamponade physiology was advised a pericardial window procedure. Prior to the procedure at the request of Dr. Hays, I performed arterial line. Sundar test was performed and it was acceptable to proceed with the radial artery line placement. After obtaining informed consent, under strict aseptic precautions and local anesthesia, a micropuncture needle technique was used to gain axis. Radial artery cannula was advanced and positioned. Good pressure recordings were obtained. The arterial line was sutured in. It was connected to pressure with very good pressure recordings. Patient tolerated the procedure well without complications. Successful placement of right radial line prior to pericardial window procedure.
--- NOTE | 2016-10-19 09:46 | P.PN ---
Progress Note - Text [facility] Nursing Principal diagnosis: Large pericardial effusion with early temperature not, rule out metastatic lung cancer, pending pathology. POD: #1, subxiphoid pericardiostomy Patient awake and alert, no distress noted, no specific complaints, patient is sitting up in bed eating his breakfast. Vital Signs: Afebrile Vital Signs - 24 hr 10/18/16 10/18/16 10/18/16 09:00 09:22 09:32 Temperature 97.7 F 97.3 F L Pulse Rate 82 81 79 Pulse Rate [ Right Supine] Respiratory 30 H 27 H Rate Blood Pressure 113/61 109/61 109/61 O2 Sat by Pulse 97 95 Oximetry 10/18/16 10/18/16 10/18/16 09:55 09:57 10:00 Temperature 97.3 F L 97.8 F Pulse Rate 106 H 80 78 Pulse Rate [ Right Supine] Respiratory 20 23 31 H Rate Blood Pressure 138/64 152/90 120/67 O2 Sat by Pulse 95 95 96 Oximetry 10/18/16 10/18/16 10/18/16 10:07 12:07 12:30 Temperature 97.7 F 96.8 F L Pulse Rate 80 82 138 H Pulse Rate [ Right Supine] Respiratory 20 14 19 Rate Blood Pressure 149/91 118/67 O2 Sat by Pulse 95 95 99 Oximetry 10/18/16 10/18/16 10/18/16 12:31 12:45 13:00 Temperature 96.8 F L Pulse Rate 133 H 144 H Pulse Rate [ 95 Right Supine] Respiratory 14 24 Rate Blood Pressure O2 Sat by Pulse 95 96 98 Oximetry 10/18/16 10/18/16 10/18/16 13:15 13:30 13:45 Temperature Pulse Rate 103 H 120 H 123 H Pulse Rate [ Right Supine] Respiratory 22 21 27 H Rate Blood Pressure O2 Sat by Pulse 97 96 97 Oximetry 10/18/16 10/18/16 10/18/16 14:00 14:15 14:30 Temperature Pulse Rate 121 H 127 H 121 H Pulse Rate [ Right Supine] Respiratory 22 28 H 27 H Rate Blood Pressure O2 Sat by Pulse 98 96 96 Oximetry 10/18/16 10/18/16 10/18/16 14:45 15:00 15:15 Temperature Pulse Rate 118 H 117 H 102 H Pulse Rate [ Right Supine] Respiratory 30 H 46 H 26 H Rate Blood Pressure O2 Sat by Pulse 95 96 95 Oximetry 10/18/16 10/18/16 10/18/16 15:30 15:45 16:00 Temperature 97.7 F Pulse Rate 85 87 118 H Pulse Rate [ 95 Right Supine] Respiratory 23 38 H 22 Rate Blood Pressure O2 Sat by Pulse 96 96 94 L Oximetry 10/18/16 10/18/16 10/18/16 16:15 16:30 17:00 Temperature Pulse Rate 111 H 107 H 106 H Pulse Rate [ Right Supine] Respiratory 22 18 13 Rate Blood Pressure O2 Sat by Pulse 90 L 96 94 L Oximetry 10/18/16 10/18/16 10/18/16 17:30 18:00 18:30 Temperature Pulse Rate 111 H 96 69 Pulse Rate [ Right Supine] Respiratory 16 20 30 H Rate Blood Pressure O2 Sat by Pulse 93 L 96 95 Oximetry 10/18/16 10/18/16 10/18/16 19:00 19:30 19:34 Temperature Pulse Rate 68 68 68 Pulse Rate [ Right Supine] Respiratory 21 21 Rate Blood Pressure O2 Sat by Pulse 95 96 Oximetry 10/18/16 10/18/16 10/18/16 19:45 20:00 20:30 Temperature 97.7 F Pulse Rate 68 94 70 Pulse Rate [ Right Supine] Respiratory 20 18 Rate Blood Pressure O2 Sat by Pulse 95 95 Oximetry 10/18/16 10/18/16 10/18/16 20:55 21:00 21:30 Temperature Pulse Rate 100 103 H Pulse Rate [ 95 Right Supine] Respiratory 13 15 16 Rate Blood Pressure O2 Sat by Pulse 96 96 Oximetry 10/18/16 10/18/16 10/18/16 22:00 22:30 23:00 Temperature Pulse Rate 72 70 68 Pulse Rate [ Right Supine] Respiratory 15 15 13 Rate Blood Pressure O2 Sat by Pulse 96 93 L 94 L Oximetry 10/18/16 10/18/16 10/18/16 23:01 23:30 23:44 Temperature Pulse Rate 69 106 H Pulse Rate [ 95 Right Supine] Respiratory 13 13 13 Rate Blood Pressure O2 Sat by Pulse 96 95 Oximetry 10/19/16 10/19/16 10/19/16 00:00 00:30 01:00 Temperature 97.9 F Pulse Rate 67 96 67 Pulse Rate [ Right Supine] Respiratory 17 24 16 Rate Blood Pressure O2 Sat by Pulse 95 96 96 Oximetry 10/19/16 10/19/16 10/19/16 01:30 02:00 02:30 Temperature Pulse Rate 69 88 105 H Pulse Rate [ Right Supine] Respiratory 10 L 5 L 21 Rate Blood Pressure O2 Sat by Pulse 95 96 96 Oximetry 10/19/16 10/19/16 10/19/16 03:00 03:30 03:53 Temperature Pulse Rate 69 95 Pulse Rate [ 95 Right Supine] Respiratory 19 0 L 0 L Rate Blood Pressure O2 Sat by Pulse 96 95 Oximetry 10/19/16 10/19/16 10/19/16 04:00 04:30 05:00 Temperature 97.9 F Pulse Rate 109 H 93 113 H Pulse Rate [ Right Supine] Respiratory 19 6 L 24 Rate Blood Pressure O2 Sat by Pulse 96 96 96 Oximetry 10/19/16 10/19/16 10/19/16 05:30 06:00 06:30 Temperature Pulse Rate 105 H 113 H 92 Pulse Rate [ Right Supine] Respiratory 21 24 27 H Rate Blood Pressure 102/68 O2 Sat by Pulse 96 96 96 Oximetry 10/19/16 10/19/16 10/19/16 07:00 07:53 08:00 Temperature 97.3 F L Pulse Rate 104 H 101 H 114 H Pulse Rate [ Right Supine] Respiratory 22 24 Rate Blood Pressure 102/68 102/68 O2 Sat by Pulse 96 93 L 96 Oximetry 10/19/16 08:03 Temperature Pulse Rate 103 H Pulse Rate [ Right Supine] Respiratory Rate Blood Pressure O2 Sat by Pulse Oximetry ABP, PAP, CO, CI - Last 8 Hours Arterial Blood Pressure 115/67 Arterial Blood Pressure 112/65 Arterial Blood Pressure 110/66 Arterial Blood Pressure 110/64 Arterial Blood Pressure 112/59 Arterial Blood Pressure 110/60 Arterial Blood Pressure 105/62 Arterial Blood Pressure 108/63 Arterial Blood Pressure 107/60 Arterial Blood Pressure 115/54 Arterial Blood Pressure 111/64 Arterial Blood Pressure 103/59 Arterial Blood Pressure 111/52 Arterial Blood Pressure 116/53 Labs: Short CBC 10/18/16 10/19/16 Range/Units 13:06 04:50 WBC 13.5 H 15.1 H (3.8-10.6) k/uL Hgb 10.9 L 10.1 L (13.0-17.5) gm/dL Hct 33.8 L 30.2 L (39.0-53.0) % Plt Count 187 190 (150-450) k/uL Neutrophils # 12.8 H 14.1 H (1.3-7.7) k/uL BMP 10/18/16 10/19/16 13:06 04:50 Sodium 139 138 Potassium 4.1 4.4 Chloride 101 102 Carbon Dioxide 22 26 BUN 42 H 49 H Creatinine 1.00 1.00 Glucose 134 H 100 H Calcium 8.6 8.4 Liver Function 10/18/16 10/19/16 Range/Units 13:06 04:50 Total Bilirubin 2.6 H 3.0 H (0.2-1.3) mg/dL AST 4285 H 2078 H (17-59) U/L ALT 4803 H 3414 H (21-72) U/L Alkaline Phosphatase 104 101 (38-126) U/L Albumin 3.4 L 3.0 L (3.5-5.0) g/dL Microbiology 10/17/16 12:20 Blood Culture - Preliminary Blood No Growth after 24 hours 10/17/16 12:34 Blood Culture - Preliminary Blood No Growth after 24 hours Microbiology 10/17/16 12:20 Blood Blood Culture - Preliminary No Growth after 24 hours 10/17/16 12:34 Blood Blood Culture - Preliminary No Growth after 24 hours Pathology results pending. IV Fluids: 0.9% normal saline at 75 mL/h Amiodarone drip at 0.5 mg/m Cardizem drip at 10 mg per hour Lungs: Essentially clear throughout, diminished bilateral bases. Respirations are unlabored. O2 sat: 92% on 5 L nasal cannula. I/S: 750-1000 mL, reviewed with the patient importance of using his incentive spirometry every hour while awake. The patient did give a good return demonstration on his incentive spirometry. Heart: S1S2, irregular rhythm with controlled rate. Negative for S3, gallop or murmur. Bedside telemetry showing atrial fibrillation heart rate 111. Subxiphoid chest incision clean with silver dressing clean and dry. No drainage noted. Knee-high YOKO hose and sequential compression devices in place to bilateral lower extremity Soham. Abdomen: Soft, Positive bowel sounds present in all 4 quadrants. CBGs: 97-156 mg/dL in the last 24 hours. U/O: Adequate, Moss catheter for accurate I&O. Chest Tubes: Subxiphoid chest tube without air leak, draining thin serosanguineous drainage. 25 mL output in the last 8 hours, 150 mL output in the last 24 hours. 24 hr Total: Intake & Output 10/17/16 10/18/16 10/19/16 10/20/16 06:59 06:59 06:59 06:59 Intake Total 825 4590.039 75 Output Total 450 2650 50 Balance 375 1940.039 25 Weight 80.7 kg 88 kg Active Medications Acetaminophen (Tylenol Tab) 500 mg PO Q4H PRN PRN Reason: Pain Albuterol/Ipratropium (Duoneb 0.5 Mg-3 Mg/3 Ml Soln) 3 ml INHALATION RT-QID PRN PRN Reason: Shortness Of Breath Or Wheezing Albuterol/Ipratropium (Duoneb 0.5 Mg-3 Mg/3 Ml Soln) 3 ml INHALATION RT-QID [facility] Last Admin: 10/19/16 07:53 Dose: 3 ml Chlorhexidine Gluconate (Peridex) 15 ml MUCOUS MEM BID [facility] Last Admin: 10/19/16 08:38 Dose: Not Given Levofloxacin 750 mg/ IV (Solution) 150 mls @ 100 mls/hr IVPB Q24H [facility] Stop: 10/30/16 14:01 Last Admin: 10/18/16 15:24 Dose: 100 mls/hr Sodium Chloride (Saline 0.9%) 1,000 mls @ 75 mls/hr IV .[id number] [facility] Last Admin: 10/19/16 08:37 Dose: 75 mls/hr Diltiazem HCl 125 mg/ Sodium (Chloride) 125 mls @ 10 mls/hr IV .[id number] [facility] PRN Reason: 10 MG/HR Last Admin: 10/19/16 01:29 Dose: 10 mg/hr, 10 mls/hr Amiodarone HCl 450 mg/ (Dextrose/Water) 259 mls @ 34.53 mls/hr IV .Q7H31M [facility]; 1 MG/MIN PRN Reason: Protocol Stop: 10/19/16 12:30 Last Admin: 10/19/16 05:30 Dose: 0.5 mg/min, 17.26 mls/hr Propofol 500 mg/ IV Solution 50 mls @ 0 mls/hr IV .Q0M [facility]; Titrate PRN Reason: Protocol Last Titration: 10/18/16 15:00 Dose: 0 mcg/kg/min, 0 mls/hr Insulin Human Lispro (Humalog) 0 unit SQ ACHS [facility] PRN Reason: Protocol Last Admin: 10/19/16 08:38 Dose: Not Given Miscellaneous Information (Pneumonia Protocol Utilized) 1 each PO ONCE PRN PRN Reason: Per Protocol Miscellaneous Information (Magnesium Per Protocol) 1 each MISCELLANE DAILY PRN ; Protocol PRN Reason: Per Protocol Miscellaneous Information (Potassium Per Protocol) 1 each MISCELLANE DAILY PRN ; Protocol PRN Reason: Per Protocol Morphine Sulfate (Morphine Sulfate (Inj)) 2 mg IVP Q2H PRN PRN Reason: Severe Pain Pantoprazole Sodium (Protonix) 40 mg IVP DAILY [facility] Last Admin: 10/19/16 08:37 Dose: 40 mg Plan: 1. We will keep his chest tube in place for another 24 hours. 2. Encourage use of his incentive spirometry every hour while awake. 3. Encourage increasing activity level as tolerated. 4. Pulmonary management per Dr. Bravo. 5. Atrial fibrillation management per cardiology.
[2016-10-19] MEDS: AMIODARONE 200 MG TAB PO SCH ×2 (10:58→20:55)
--- NOTE | 2016-10-19 11:34 | P.PN ---
Subjective Progress note dated 10/19/2016 This is a 80-year-old male with a history of metastatic lung cancer. He was discovered to have a large pericardial effusion and underwent a pericardial window yesterday. Today's postop day #1. He's currently on 4 L nasal cannula. He is getting an IV appointment 9 at 75 mL an hour. He is on a Cardizem drip at 10 mg an hour and also Cordarone at 0.5 mg/m. The patient currently is doing relatively well. He still in A. fib. He was able to be extubated yesterday. He came back to the unit on the ventilator. Objective - Vital Signs Vital signs: Vital Signs Temp 97.3 F L 10/19/16 08:00 Pulse 98 10/19/16 11:19 Resp 24 10/19/16 10:00 BP 102/68 10/19/16 08:00 Pulse Ox 94 L 10/19/16 10:00 Intake & Output 10/18/16 10/19/16 10/19/16 18:59 06:59 18:59 Intake Total 2821.641 1768.398 300 Output Total 1965 685 225 Balance 941.578 1851.398 75 Weight 80.7 kg 88 kg Intake: IV 1000 975 300 Sodium Chloride 0.9% 1, 150 975 300 000 ml @ 75 mls/hr IV . [id number] [facility] Rx#:[id number] Intake, IV Titration 1247.641 673.398 Amount Amiodarone 450 mg In 199.8 548.398 Dextrose 5% in Water 250 ml @ 1 MG/MIN 34.53 mls/ hr IV .Q7H31M [facility] Rx#: [id number] Calcium Gluconate 1,000 100 mg In Sodium Chloride 0.9 % 100 ml @ 100 mls/hr IVPB ONCE [facility] Rx#: [id number] Dextrose 5% in Water 100 100 ml @ 618 mls/hr IV .Q10M ONE with Amiodarone 150 mg Rx#:[id number] Diltiazem 125 mg In 88 125 Sodium Chloride 0.9% 100 ml @ 10 MG/HR 10 mls/hr IV .[id number] [facility] Rx#: [id number] Levofloxacin 750Mg-D5w 150 Pmx 750 mg In Dextrose/ Water 1 150ml.bag @ 100 mls/hr IVPB Q24H [facility] Rx#: [id number] Propofol 500 mg In Empty 9.841 Bag 1 bag @ Titrate IV . Q0M [facility] Rx#:[id number] Sodium Chloride 0.9% 1, 600 000 ml @ 75 mls/hr IV . [id number] [facility] Rx#:[id number] Oral 120 Blood Product 574 Ffp 24 Cpd Unit 287 [id number] Ffp 24 Cpd Unit 287 [id number] Output: Chest Tube Drainage 105 50 20 mediastinal 105 50 20 Urine 1060 635 205 Estimated Blood Loss 800 Other: Voiding Method Indwelling Catheter Indwelling Catheter Indwelling Catheter ABP, PAP, CO, CI - Last Documented Arterial Blood Pressure 115/66 - Exam No acute distress, oriented 3. Sitting up at the bedside. HEENT examination is grossly unremarkable. Mucous membranes are moist. Neck supple. Full range of motion. No adenopathy. Cardiovascular examination reveals a regular rhythm rate. He is currently in atrial fibrillation. Heart rate is about 120. Lungs are reasonably clear. A few scattered rhonchi. No crackles. Abdomen soft. Extremities are intact. - Labs CBC & Chem 7: 10/19/16 04:50 10/19/16 04:50 Labs: Abnormal Lab Results - Last 24 Hours (Table) 10/18/16 10/18/16 10/18/16 Range/Units 11:07 12:22 12:39 WBC (3.8-10.6) k/uL RBC (4.30-5.90) m/uL Hgb (13.0-17.5) gm/dL Hct (39.0-53.0) % Neutrophils # (1.3-7.7) k/uL Lymphocytes # (1.0-4.8) k/uL PT (9.0-12.0) sec ABG pCO2 (35-45) mmHg ABG pO2 178 H 275 H (83-108) mmHg ABG HCO3 19 L (21-25) mmol/L ABG O2 Saturation 98.7 H 100.0 H (94-97) % BUN (9-20) mg/dL Glucose (74-99) mg/dL POC Glucose (mg/dL) 120 H (75-99) mg/dL Magnesium (1.6-2.3) mg/dL Total Bilirubin (0.2-1.3) mg/dL AST (17-59) U/L ALT (21-72) U/L Total Protein (6.3-8.2) g/dL Albumin (3.5-5.0) g/dL 10/18/16 10/18/16 10/18/16 Range/Units 13:06 13:06 13:06 WBC 13.5 H (3.8-10.6) k/uL RBC 3.54 L (4.30-5.90) m/uL Hgb 10.9 L (13.0-17.5) gm/dL Hct 33.8 L (39.0-53.0) % Neutrophils # 12.8 H (1.3-7.7) k/uL Lymphocytes # 0.5 L (1.0-4.8) k/uL PT 20.6 H (9.0-12.0) sec ABG pCO2 (35-45) mmHg ABG pO2 (83-108) mmHg ABG HCO3 (21-25) mmol/L ABG O2 Saturation (94-97) % BUN 42 H (9-20) mg/dL Glucose 134 H (74-99) mg/dL POC Glucose (mg/dL) (75-99) mg/dL Magnesium (1.6-2.3) mg/dL Total Bilirubin 2.6 H (0.2-1.3) mg/dL AST 4285 H (17-59) U/L ALT 4803 H (21-72) U/L Total Protein (6.3-8.2) g/dL Albumin 3.4 L (3.5-5.0) g/dL 10/18/16 10/18/16 10/18/16 Range/Units 15:39 17:17 21:12 WBC (3.8-10.6) k/uL RBC (4.30-5.90) m/uL Hgb (13.0-17.5) gm/dL Hct (39.0-53.0) % Neutrophils # (1.3-7.7) k/uL Lymphocytes # (1.0-4.8) k/uL PT (9.0-12.0) sec ABG pCO2 30 L (35-45) mmHg ABG pO2 134 H (83-108) mmHg ABG HCO3 20 L (21-25) mmol/L ABG O2 Saturation 99.0 H (94-97) % BUN (9-20) mg/dL Glucose (74-99) mg/dL POC Glucose (mg/dL) 156 H 110 H (75-99) mg/dL Magnesium (1.6-2.3) mg/dL Total Bilirubin (0.2-1.3) mg/dL AST (17-59) U/L ALT (21-72) U/L Total Protein (6.3-8.2) g/dL Albumin (3.5-5.0) g/dL 10/19/16 10/19/16 10/19/16 Range/Units 04:50 04:50 04:50 WBC 15.1 H (3.8-10.6) k/uL RBC 3.22 L (4.30-5.90) m/uL Hgb 10.1 L (13.0-17.5) gm/dL Hct 30.2 L (39.0-53.0) % Neutrophils # 14.1 H (1.3-7.7) k/uL Lymphocytes # 0.7 L (1.0-4.8) k/uL PT 23.6 H (9.0-12.0) sec ABG pCO2 (35-45) mmHg ABG pO2 (83-108) mmHg ABG HCO3 (21-25) mmol/L ABG O2 Saturation (94-97) % BUN 49 H (9-20) mg/dL Glucose 100 H (74-99) mg/dL POC Glucose (mg/dL) (75-99) mg/dL Magnesium 2.4 H (1.6-2.3) mg/dL Total Bilirubin 3.0 H (0.2-1.3) mg/dL AST 2078 H (17-59) U/L ALT 3414 H (21-72) U/L Total Protein 5.6 L (6.3-8.2) g/dL Albumin 3.0 L (3.5-5.0) g/dL Assessment and Plan (1) Cardiac tamponade Status: Acute (2) Pericardial effusion Status: Acute (3) Prostate cancer Status: Acute (4) Metastatic lung cancer (metastasis from lung to other site) Status: Acute (5) Non-small cell lung cancer (NSCLC) Status: Acute Plan: Plan dated 10/18/2016 The patient's taken to the operating room for emergent pericardial window. See the patient when he gets back to the operating room. Hopefully he'll be extubated in the recovery area. If not we'll continue to follow him here. Yesterday when I was initially called he was a DO NOT RESUSCITATE and did not want surgery. Obviously something changed to the night. We'll continue to follow. Prognosis is guarded. Plan dated 10/19/2016 The patient's doing well. We'll continue with the current medications. Being followed by cardiology. We'll continue with the nasal O2 in the incentive spirometer. Additional recommendations suggestions are forthcoming. Prognosis is guarded given his history of metastatic lung cancer. Time with Patient: Less than 30
--- NOTE | 2016-10-19 11:56 | PN ---
Mr. Schafer underwent a pericardial window procedure and nearly close to a liter of fluid was taken out. Hemodynamically stable, extubated, remains in atrial fib, rate controlled with amiodarone, orally. I will switch him from IV to oral amiodarone and continue IV Cardizem. Hemodynamically stable. Physical exam revealed blood pressure 128/70, pulse rate is about 110, irregular. Atrial fib, pericardial rub is audible. Short systolic murmur is audible. Lungs reveal improved air entry. Abdomen and lower extremity exam is unchanged. Chest tube and pericardial drainage has decreased. Plan is to do a repeat echo tomorrow and continue his other medications. We will continue rate control with amiodarone orally and IV Cardizem. Discussed with the patient in detail.
[2016-10-19 12:59] LABS: Glucose,Whole Blood 121 mg/dL (75-99)
--- NOTE | 2016-10-19 14:35 | P.PN ---
Subjective Principal diagnosis: Pericardial effusion Patient is doing well today. He is up in the bed eating his lunch. He denies any significant pain. No concerns or complaints at this time. Objective - Vital Signs Vital signs: Vital Signs Temp 97.3 F L 10/19/16 08:00 Pulse 72 10/19/16 14:00 Resp 28 H 10/19/16 14:00 BP 102/68 10/19/16 08:00 Pulse Ox 96 10/19/16 14:00 Intake & Output 10/18/16 10/19/16 10/19/16 18:59 06:59 18:59 Intake Total 2821.641 1768.398 825.5 Output Total 1965 685 435 Balance 163.561 6688.398 390.5 Weight 80.7 kg 88 kg Intake: IV 1000 975 470 Sodium Chloride 0.9% 1, 150 975 470 000 ml @ 20 mls/hr IV . Q24H [facility] Rx#:[id number] Intake, IV Titration 1247.641 673.398 115.5 Amount Amiodarone 450 mg In 199.8 548.398 Dextrose 5% in Water 250 ml @ 1 MG/MIN 34.53 mls/ hr IV .Q7H31M [facility] Rx#: [id number] Calcium Gluconate 1,000 100 mg In Sodium Chloride 0.9 % 100 ml @ 100 mls/hr IVPB ONCE [facility] Rx#: [id number] Dextrose 5% in Water 100 100 ml @ 618 mls/hr IV .Q10M ONE with Amiodarone 150 mg Rx#:[id number] Diltiazem 125 mg In 88 125 115.5 Sodium Chloride 0.9% 100 ml @ 10 MG/HR 10 mls/hr IV .[id number] [facility] Rx#: [id number] Levofloxacin 750Mg-D5w 150 Pmx 750 mg In Dextrose/ Water 1 150ml.bag @ 100 mls/hr IVPB Q24H [facility] Rx#: [id number] Propofol 500 mg In Empty 9.841 Bag 1 bag @ Titrate IV . Q0M [facility] Rx#:[id number] Sodium Chloride 0.9% 1, 600 000 ml @ 20 mls/hr IV . Q24H [facility] Rx#:[id number] Oral 120 240 Blood Product 574 Ffp 24 Cpd Unit 287 [id number] Ffp 24 Cpd Unit 287 [id number] Output: Chest Tube Drainage 105 50 20 mediastinal 105 50 20 Urine 1060 635 415 Estimated Blood Loss 800 Other: Voiding Method Indwelling Catheter Indwelling Catheter Indwelling Catheter ABP, PAP, CO, CI - Last Documented Arterial Blood Pressure 125/53 - Exam General: The patient is awake and alert, in no distress Eye: there is normal conjunctiva bilaterally. Neck: The neck is supple, there is no JVD. Cardiovascular: Normal S1-S2, no S3-S4, no murmurs. Respiratory: Lungs clear to auscultation bilaterally chest tube in place.. Gastrointestinal: Abdomen is soft, nontender Musculoskeletal: There is no pedal edema. Neurological:. Speech is normal. Skin: Skin is warm and dry - Labs CBC & Chem 7: 10/19/16 04:50 10/19/16 04:50 Labs: Abnormal Lab Results - Last 24 Hours (Table) 10/18/16 10/18/16 10/18/16 Range/Units 15:39 17:17 21:12 WBC (3.8-10.6) k/uL RBC (4.30-5.90) m/uL Hgb (13.0-17.5) gm/dL Hct (39.0-53.0) % Neutrophils # (1.3-7.7) k/uL Lymphocytes # (1.0-4.8) k/uL PT (9.0-12.0) sec ABG pCO2 30 L (35-45) mmHg ABG pO2 134 H (83-108) mmHg ABG HCO3 20 L (21-25) mmol/L ABG O2 Saturation 99.0 H (94-97) % BUN (9-20) mg/dL Glucose (74-99) mg/dL POC Glucose (mg/dL) 156 H 110 H (75-99) mg/dL Magnesium (1.6-2.3) mg/dL Total Bilirubin (0.2-1.3) mg/dL AST (17-59) U/L ALT (21-72) U/L Total Protein (6.3-8.2) g/dL Albumin (3.5-5.0) g/dL 10/19/16 10/19/16 10/19/16 Range/Units 04:50 04:50 04:50 WBC 15.1 H (3.8-10.6) k/uL RBC 3.22 L (4.30-5.90) m/uL Hgb 10.1 L (13.0-17.5) gm/dL Hct 30.2 L (39.0-53.0) % Neutrophils # 14.1 H (1.3-7.7) k/uL Lymphocytes # 0.7 L (1.0-4.8) k/uL PT 23.6 H (9.0-12.0) sec ABG pCO2 (35-45) mmHg ABG pO2 (83-108) mmHg ABG HCO3 (21-25) mmol/L ABG O2 Saturation (94-97) % BUN 49 H (9-20) mg/dL Glucose 100 H (74-99) mg/dL POC Glucose (mg/dL) (75-99) mg/dL Magnesium 2.4 H (1.6-2.3) mg/dL Total Bilirubin 3.0 H (0.2-1.3) mg/dL AST 2078 H (17-59) U/L ALT 3414 H (21-72) U/L Total Protein 5.6 L (6.3-8.2) g/dL Albumin 3.0 L (3.5-5.0) g/dL 10/19/16 Range/Units 12:57 WBC (3.8-10.6) k/uL RBC (4.30-5.90) m/uL Hgb (13.0-17.5) gm/dL Hct (39.0-53.0) % Neutrophils # (1.3-7.7) k/uL Lymphocytes # (1.0-4.8) k/uL PT (9.0-12.0) sec ABG pCO2 (35-45) mmHg ABG pO2 (83-108) mmHg ABG HCO3 (21-25) mmol/L ABG O2 Saturation (94-97) % BUN (9-20) mg/dL Glucose (74-99) mg/dL POC Glucose (mg/dL) 121 H (75-99) mg/dL Magnesium (1.6-2.3) mg/dL Total Bilirubin (0.2-1.3) mg/dL AST (17-59) U/L ALT (21-72) U/L Total Protein (6.3-8.2) g/dL Albumin (3.5-5.0) g/dL Assessment and Plan Plan: 1. Large pericardial effusion, most likely malignant awaiting pathology report , status post pericardial window postoperative day #1. Cardiothoracic surgery following closely. 2. Atrial fibrillation with rapid ventricular response: New onset, cardiology following closely. Currently on IV Cardizem. 3. 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 Awaiting oncology evaluation 4. Acute liver failure with significant transaminitis: Exact etiology unclear to me. Liver ultrasound was a suboptimal study would consider repeat imaging within the next day or 2. Patient remained hemodynamically stable. We will check liver ultrasound and hepatitis panel. Possibly attributed to liver congestion. Rule out liver metastasis. 5. Coagulopathy with elevated INR: Secondary to acute liver failure would continue to monitor INR daily. 6. Right lower lobe pneumonia on IV Levaquin 7. History of rheumatoid arthritis 8. History of prostate cancer with prior radiation therapy 9. Benign prostatic hyperplasia We will continue ICU care. Appreciate audit consultant's recommendations. Continue IV Cardizem and amiodarone as directed by cardiology. Repeat lab work in the morning. GI prophylaxis with Protonix. SCDs for DVT prophylaxis and continue to monitor INR daily.
[2016-10-19] MEDS: LEVOFLOXACIN 750MG-D5W PMX 750 MG in DEXTROSE/WATER 1 150ML.BAG IVPB SCH (14:57)
--- NOTE | 2016-10-19 14:57 | P.CONS ---
History of Present Illness - Reason for Consult Consult date: 10/19/16 Recurrent lung cancer. Pericardial effusion - History of Present Illness The patient is a 80-year-old white male, well known to myself. He had initially presented with a 2.5 cm spiculated density in the right upper lobe, that was noted on routine chest x-ray done in 06/14. Computed tomography scan of the chest confirmed those findings and also revealed a small density just inferior to this. A PET scan on 08/25/15 was positive with an SUV of 7 in the larger density with the smaller density having an uptake of only about 2. He had a bronchoscopy on 09/07/[address] Bravo, that was positive for adenocarcinoma. The patient, given limited disease, proceeded to surgery with right upper lobectomy, and wedge biopsies in the right middle lobe and upper right lower lobe, at [facility] on 10/04/15. The right upper lobe lesion was positive for high-grade adenocarcinoma. One hilar lymph node was positive. 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 He did well after surgery, and was started on adjuvant chemotherapy with FOURDRINIER TENDER- 16 and cisplatin on 11/21/15. This regimen was used as it would cover both primaries. The patient was only able to have about 2 of the planned 4 cycles because of poor tolerance. He was then placed on surveillance, with a computed tomography scan of the chest abdomen and pelvis in 08/15 showing increase in size in mediastinal nodes. The patient subsequently had a PET scan which showed uptake in this area , and also in a destructive appearing lesion lesion in the right iliac bone. He was referred back to his surgeon for a mediastinoscopy and repeat biopsy, as he had had 2 primaries. It was recommended that he actually have a biopsy of the right iliac lesion. He was referred for the same to interventional radiology here, but on review of his scans, they felt that this lesion could not be well localized. He had been referred back to interventional radiology at [facility]. The patient came in to the hospital, as he was having progressive difficulty in breathing as well as chest pain, over the last couple of days with fairly rapid progression. In the emergency room, he underwent a CTA which showed a large pericardial effusion. Liver enzymes are also elevated. The patient was therefore admitted. We attempted to see him on the 10/18/2016, but at the time the patient was being prepared to go to the OR for pericardial drainage. The case was discussed with CTS. the patient underwent successful pericardial drainage and creation of window. Pericardial biopsy, as well as fluid were sent for cytology. A formal consult was done on 10/19/16 Review of Systems Constitutional: Reports fatigue, Reports weakness Eyes: denies blurred vision, denies pain Ears: deny: decreased hearing Ears, nose, mouth and throat: Denies headache, Denies sore throat Cardiovascular: Reports irregular heart beat, Reports lightheadedness, Reports shortness of breath Respiratory: Reports dyspnea Gastrointestinal: Denies abdominal pain, Denies diarrhea, Denies nausea, Denies vomiting Genitourinary: Reports as per HPI (No specific complaints) Musculoskeletal: Reports as per HPI (History of rheumatoid arthritis, currently on Plaquenil and methotrexate. No symptoms suggestive of flare) Integumentary: Denies pruritus, Denies rash Neurological: Reports weakness Psychiatric: Denies anxiety, Denies depression Endocrine: Denies fatigue, Denies weight change Hematologic/Lymphatic: Reports as per HPI, Reports lymphadenopathy Past Medical History Past Medical History: Cancer, COPD, GERD/Reflux, Pneumonia, Prostate Disorder, Rheumatoid Arthritis (RA) Additional Past Medical History / Comment(s): heart murmer as child, HIATAL HERNIA, CATARACTS,, CONSTIPATION,hx prostate cancer-tx with radiation, lung CA with chemo last treatment 12/22/15,"FOUND A SPOT ON MY SPINE AND A LYMPH NOSE" History of Any Multi-Drug Resistant Organisms: None Reported Past Surgical History: Hernia Repair, Tonsillectomy Additional Past Surgical History / Comment(s): BRONCHOCOSPY W/BX,Chemo, radiation AND Right lung lobectomy in 10/2015, PROSTATE BX, ELIJAH INGUINAL HERNIA REPAIR, CYST REMOVED FROM BACK. Past Anesthesia/Blood Transfusion Reactions: No Reported Reaction Past Psychological History: No Psychological Hx Reported Additional Psychological History / Comment(s): PT LIVES WITH DAUGHTER FREDY AND HER IVONNE, USES A CANE WHEN UP. NO OUTSIDE SERVICES. 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 Smoking Status: Former smoker Past Alcohol Use History: None Reported Additional Past Alcohol Use History / Comment(s): STARTED SMOKING AT AGE 15 , quit smoking 07/2015, HAD BEEN SMOKING 1 PPD Past Drug Use History: None Reported - Past Family History Mother History Unknown: Yes Family Medical History: No Reported History Additional Family Medical History / Comment(s): Adopted Medications and Allergies Home Medications Medication Instructions Recorded Confirmed Type Omeprazole 20 mg PO DAILY 12/30/15 10/17/16 History Tamsulosin HCl [Flomax] 0.4 mg PO DAILY 12/30/15 10/17/16 History ALPRAZolam [Xanax] 0.5 mg PO DAILY PRN 10/17/16 10/17/16 History Acetaminophen [Tylenol] 500 mg PO Q4-6H PRN 10/17/16 10/17/16 History Albuterol Inhaler [Ventolin Hfa 2 puff INHALATION RT-Q4H PRN 10/17/16 10/17/16 History Inhaler] Folic Acid 1 mg PO SUMOTUWEFRSA 10/17/16 10/17/16 History Hydroxychloroquine Sulfate 200 mg PO BID 10/17/16 10/17/16 History [Plaquenil] Methotrexate Sodium (Pf) 25 mg INJ TH 10/17/16 10/17/16 History [Methotrexate 25 mg/ml Vial] Multivitamins, Thera [Multivitamin] 1 tab PO DAILY 10/17/16 10/17/16 History Allergies Allergy/AdvReac Type Severity Reaction Status Date / Time No Known Allergies Allergy Verified 10/17/16 12:57 Physical Exam Vitals: Vital Signs Temp Pulse Pulse Resp BP BP Pulse Ox 10/18/16 10:07 97.7 F 80 20 149/91 95 10/18/16 10:00 78 31 H 120/67 96 10/18/16 09:57 97.8 F 80 23 152/90 95 10/18/16 09:55 97.3 F L 106 H 20 138/64 95 10/18/16 09:32 97.3 F L 79 27 H 109/61 95 10/18/16 09:22 97.7 F 81 30 H 109/61 10/18/16 09:00 82 113/61 97 10/18/16 08:00 97.6 F 82 95 17 111/53 98 10/18/16 07:56 100 10/18/16 07:39 105 H 10/18/16 07:00 80 104/81 97 10/18/16 06:00 84 110/55 97 10/18/16 05:00 139 H 17 104/80 97 10/18/16 04:00 98.2 F 144 H 95 17 106/76 96 10/18/16 03:00 93 16 123/57 97 10/18/16 02:00 93 15 133/57 96 10/18/16 01:00 91 15 125/60 94 L 10/18/16 00:00 97 95 17 135/58 97 10/17/16 23:31 95 14 132/74 96 10/17/16 23:00 96 122/74 99 10/17/16 22:00 95 132/74 98 10/17/16 21:15 98.2 F 95 14 132/74 98 10/17/16 21:00 97 124/58 98 10/17/16 20:00 98.2 F 95 95 17 123/65 100 10/17/16 19:59 93 10/17/16 19:50 96 19 123/65 100 10/17/16 19:48 95 10/17/16 18:50 98 20 112/68 100 10/17/16 18:32 98 10/17/16 18:20 105 H 21 110/77 100 10/17/16 17:50 99 19 118/66 98 10/17/16 17:31 103 H 10/17/16 17:20 98.1 F 100 19 132/62 100 10/17/16 16:30 97.0 F L 107 H 20 113/65 97 10/17/16 14:47 97 F L 92 20 136/51 96 Intake and Output 10/17/16 10/18/16 10/18/16 22:59 06:59 14:59 Intake Total 225 600 707 Output Total 250 200 250 Balance -25 400 457 Intake: Intake, IV Titration 225 600 420 Amount Calcium Gluconate 1,000 100 mg In Sodium Chloride 0.9 % 100 ml @ 100 mls/hr IVPB ONCE [facility] Rx#: [id number] Diltiazem 125 mg In 20 Sodium Chloride 0.9% 100 ml @ 10 MG/HR 10 mls/hr IV .[id number] [facility] Rx#: [id number] Sodium Chloride 0.9% 1, 225 525 000 ml @ 100 mls/hr IV . Q10H [facility] Rx#:[id number] Sodium Chloride 0.9% 1, 75 300 000 ml @ 75 mls/hr IV . [id number] [facility] Rx#:[id number] Blood Product 287 Ffp 24 Cpd Unit 287 [id number] Ffp 24 Cpd Unit 0 [id number] Output: Urine 250 200 250 Other: Voiding Method Urinal Urinal Urinal Weight 83.915 kg 80.7 kg 80.7 kg Patient Weight 10/19/16 06:59 Weight 80.7 kg ABP, PAP, CO, CI - Last 8 Hours Arterial Blood Pressure 137/82 - Constitutional General appearance: no acute distress - EENT Eyes: EOMI, PERRLA ENT: hard of hearing, normal oropharynx Ears: right: fluid - Neck Neck: no lymphadenopathy Thyroid: bilateral: normal size - Respiratory Respiratory: bilateral: CTA - Cardiovascular Rhythm: regular Heart sounds: normal: S1, S2 - Gastrointestinal General gastrointestinal: normal bowel sounds, soft - Integumentary Integumentary: normal - Neurologic Neurologic: CNII-XII intact - Musculoskeletal Musculoskeletal: generalized weakness, strength equal bilaterally - Psychiatric Psychiatric: A&O x's 3, appropriate affect Results CBC & Chem 7: 10/19/16 04:50 10/19/16 04:50 Labs: Abnormal Lab Results - Last 24 Hours (Table) 10/17/16 10/18/16 10/18/16 Range/Units 17:03 04:42 04:42 WBC 10.7 H (3.8-10.6) k/uL RBC 3.68 L (4.30-5.90) m/uL Hgb 11.3 L (13.0-17.5) gm/dL Hct 35.7 L (39.0-53.0) % Neutrophils # 10.0 H (1.3-7.7) k/uL Lymphocytes # 0.4 L (1.0-4.8) k/uL PT 21.4 H (9.0-12.0) sec ABG pH (7.35-7.45) ABG pCO2 (35-45) mmHg ABG pO2 (83-108) mmHg ABG HCO3 (21-25) mmol/L ABG Total CO2 (19-24) mmol/L Sodium (137-145) mmol/L Potassium (3.5-5.1) mmol/L Carbon Dioxide (22-30) mmol/L BUN (9-20) mg/dL Glucose (74-99) mg/dL POC Glucose (mg/dL) 137 H (75-99) mg/dL Total Bilirubin (0.2-1.3) mg/dL AST (17-59) U/L ALT (21-72) U/L 10/18/16 10/18/16 10/18/16 Range/Units 04:42 07:57 10:03 WBC (3.8-10.6) k/uL RBC (4.30-5.90) m/uL Hgb (13.0-17.5) gm/dL Hct (39.0-53.0) % Neutrophils # (1.3-7.7) k/uL Lymphocytes # (1.0-4.8) k/uL PT (9.0-12.0) sec ABG pH 7.46 H (7.35-7.45) ABG pCO2 20 L* (35-45) mmHg ABG pO2 80 L (83-108) mmHg ABG HCO3 14 L (21-25) mmol/L ABG Total CO2 14 L (19-24) mmol/L Sodium 133 L (137-145) mmol/L Potassium 5.4 H (3.5-5.1) mmol/L Carbon Dioxide 15 L (22-30) mmol/L BUN 39 H (9-20) mg/dL Glucose 120 H (74-99) mg/dL POC Glucose (mg/dL) 128 H (75-99) mg/dL Total Bilirubin 2.4 H (0.2-1.3) mg/dL AST 3396 H (17-59) U/L ALT 4340 H (21-72) U/L Chest x-ray: report reviewed CT scan - chest: report reviewed Assessment and Plan (1) Cardiac tamponade Narrative/Plan: This was due to a large pericardial effusion. Symptoms developed fairly acutely. The patient is status post drainage and creation of a pericardial window. He is hemodynamically much improved at this time. Drainage tube is present in situ. Management of the pericardial drain per CT surgery Given his clinical picture, most likely the pericardial effusion is malignant. Cytology is pending. Status: Acute (2) Non-small cell lung cancer (NSCLC) Narrative/Plan: As noted in the HPI, the patient actually had 2 separate primaries on surgery. Recent computed tomography scan and PET scan confirmed evidence of recurrence. However tissue diagnosis was needed to confirm the histology. We should be able to clarify that on the pericardial effusion, assuming that it is malignant. Further treatment recommendations will depend on histology ,and gene marker testing ( if adenocarcinoma) Status: Acute
[2016-10-19] MEDS: IPRATROPIUM 0.5 MG/2.5 ML NEBU INHALATION SCH ×2 (15:24→19:21)
[2016-10-19] MEDS: LEVALBUTEROL NEB (CONC) 1.25 MG/0.5 ML AMP INHALATION SCH ×2 (15:24→19:16)
[2016-10-19 17:18] LABS: Glucose,Whole Blood 105 mg/dL (75-99)
[2016-10-19] MEDS: MORPHINE SULFATE 2 MG/ML SYRINGE IVP PRN (17:34)
[2016-10-19 20:56] LABS: Glucose,Whole Blood 98 mg/dL (75-99)
[2016-10-20] MEDS: DILTIAZEM 125 MG in SODIUM CHLORIDE 0.9% 100 ML IV SCH (02:07)
[2016-10-20] MEDS: MORPHINE SULFATE 2 MG/ML SYRINGE IVP PRN (05:09)
[2016-10-20 05:20] LABS: Basophils # (A) 0.1 k/uL (0-0.2); Basophils % (A) 0 %; CH 31.2; Eosinophils # (A) 0.1 k/uL (0-0.7); Eosinophils % (A) 1 %; HCT 30.9 % (39.0-53.0); HDW 2.71; HGB 10.2 gm/dL (13.0-17.5); Luc % (Auto) 1; Lymphocytes # (A) 0.7 k/uL (1.0-4.8); Lymphocytes % (A) 5 %; MCH 31.4 pg (25.0-35.0); MCHC 33.1 g/dL (31.0-37.0); MCV 94.8 fL (80.0-100.0); Mean Platelet Volume 8.6; Monocytes # (A) 0.4 k/uL (0-1.0); Monocytes % (A) 2 %; Neutrophils # (A) 12.9 k/uL (1.3-7.7); Neutrophils % (A) 91 %; RBC 3.26 m/uL (4.30-5.90); RDW 14.9 % (11.5-15.5); WBC 14.2 k/uL (3.8-10.6); WBC (Perox) 14.17
[2016-10-20 05:27] LABS: INR 2.1 (<1.1); Prothrombin Time 20.3 sec (9.0-12.0)
[2016-10-20 05:28] LABS: AST 488 U/L (17-59); Alkaline Phosphatase 107 U/L (38-126); Anion Gap 10 mmol/L; Bilirubin, Delta 1.1 mg/dL (0.0-0.2); Blood Urea Nitrogen 39 mg/dL (9-20); Carbon Dioxide 24 mmol/L (22-30); Chloride 103 mmol/L (98-107); Glucose 118 mg/dL (74-99); Magnesium 2.1 mg/dL (1.6-2.3); Non-African American GFR(MDRD) >60 (>60 ml/min/1.73 sqM); Potassium 4.2 mmol/L (3.5-5.1); Sodium 137 mmol/L (137-145); Total Bilirubin 2.3 mg/dL (0.2-1.3); Total Protein 5.7 g/dL (6.3-8.2)
[2016-10-20 05:54] LABS: ALT 1880 U/L (21-72)
[2016-10-20 05:59] LABS: Hepatitis B Surface Ag Index 0.08
[2016-10-20 06:17] LABS: Hepatitis C Virus IgG Ab Negative (Negative)
[2016-10-20 07:32] LABS: Glucose,Whole Blood 108 mg/dL (75-99)
[2016-10-20] MEDS: IPRATROPIUM 0.5 MG/2.5 ML NEBU INHALATION SCH ×3 (07:46→20:25)
[2016-10-20] MEDS: LEVALBUTEROL NEB (CONC) 1.25 MG/0.5 ML AMP INHALATION SCH ×3 (07:46→20:25)
[2016-10-20] MEDS: INSULIN LISPRO (humaLOG) 300 UNIT/3 ML VIAL SQ SCH ×4 (07:48→20:10)
[2016-10-20] MEDS: PANTOPRAZOLE 40 MG/10 ML VIAL IVP SCH (08:12)
[2016-10-20] MEDS: AMIODARONE 200 MG TAB PO SCH ×2 (08:12→20:11)
--- NOTE | 2016-10-20 08:44 | P.PN ---
Subjective Principal diagnosis: Pericardial effusion S/P POD #2 pericardial window. Pt currently sitting up in chair, in no apparent distress, eating breakfast. Objective - Vital Signs Vital signs: Vital Signs Temp 97.9 F 10/20/16 08:00 Pulse 71 10/20/16 08:01 Resp 26 H 10/20/16 08:00 BP 102/68 10/19/16 08:00 Pulse Ox 98 10/20/16 08:00 Intake & Output 10/19/16 10/20/16 10/20/16 18:59 06:59 18:59 Intake Total 1315.5 595 40 Output Total 810 962 175 Balance 505.5 -367 -135 Weight 83.1 kg Intake: IV 570 220 40 Sodium Chloride 0.9% 1, 570 220 40 000 ml @ 20 mls/hr IV . Q24H [facility] Rx#:[id number] Intake, IV Titration 265.5 125 Amount Diltiazem 125 mg In 115.5 125 Sodium Chloride 0.9% 100 ml @ 10 MG/HR 10 mls/hr IV .[id number] [facility] Rx#: [id number] Levofloxacin 750Mg-D5w 150 Pmx 750 mg In Dextrose/ Water 1 150ml.bag @ 100 mls/hr IVPB Q24H [facility] Rx#: [id number] Oral 480 250 Output: Chest Tube Drainage 40 2 mediastinal 40 2 Urine 770 960 175 Other: Voiding Method Indwelling Catheter Indwelling Catheter ABP, PAP, CO, CI - Last Documented Arterial Blood Pressure 113/49 - Constitutional General appearance: Present: cooperative, no acute distress - Respiratory Details: LS diminished bilaterally. Resp even/non-labored. Currently on 5 Liters NC. - Cardiovascular Details: S1/S2 present. Reg rate/rhythm, SR on tele. Occasional AF w/ RVF which converts to NSR, currently on cardizem gtt. Mediastinal CT to -20 cm wall suction, draining serosanguinous fluid, 22 cc last 12 hours, 42 cc last 24 hours. - Gastrointestinal Gastrointestinal Comment(s): Abd soft/NT/ND. Active BS x 4 quad. Tolerating diet. - Genitourinary Genitourinary Comment(s): Moss present draining clear/yellow urine. - Musculoskeletal Musculoskeletal Comment(s): Up to chair w/ assist x 1. - Psychiatric Psychiatric: Present: A&O x's 3, appropriate affect, intact judgment & insight - Allied health notes Allied health notes reviewed: nursing - Labs CBC & Chem 7: 10/20/16 05:06 10/20/16 05:06 Labs: Abnormal Lab Results - Last 24 Hours (Table) 10/19/16 10/19/16 10/20/16 Range/Units 12:57 17:16 05:06 WBC 14.2 H (3.8-10.6) k/uL RBC 3.26 L (4.30-5.90) m/uL Hgb 10.2 L (13.0-17.5) gm/dL Hct 30.9 L (39.0-53.0) % Neutrophils # 12.9 H (1.3-7.7) k/uL Lymphocytes # 0.7 L (1.0-4.8) k/uL PT (9.0-12.0) sec BUN (9-20) mg/dL Glucose (74-99) mg/dL POC Glucose (mg/dL) 121 H 105 H (75-99) mg/dL Calcium (8.4-10.2) mg/dL Phosphorus (2.5-4.5) mg/dL Total Bilirubin (0.2-1.3) mg/dL Unconjugated Bilirubin (0.0-1.1) mg/dL Delta Bilirubin (0.0-0.2) mg/dL AST (17-59) U/L ALT (21-72) U/L Total Protein (6.3-8.2) g/dL Albumin (3.5-5.0) g/dL 10/20/16 10/20/16 10/20/16 Range/Units 05:06 05:15 07:30 WBC (3.8-10.6) k/uL RBC (4.30-5.90) m/uL Hgb (13.0-17.5) gm/dL Hct (39.0-53.0) % Neutrophils # (1.3-7.7) k/uL Lymphocytes # (1.0-4.8) k/uL PT 20.3 H (9.0-12.0) sec BUN 39 H (9-20) mg/dL Glucose 118 H (74-99) mg/dL POC Glucose (mg/dL) 108 H (75-99) mg/dL Calcium 8.0 L (8.4-10.2) mg/dL Phosphorus 2.0 L (2.5-4.5) mg/dL Total Bilirubin 2.3 H (0.2-1.3) mg/dL Unconjugated Bilirubin 1.2 H (0.0-1.1) mg/dL Delta Bilirubin 1.1 H (0.0-0.2) mg/dL AST 488 H (17-59) U/L ALT 1880 H (21-72) U/L Total Protein 5.7 L (6.3-8.2) g/dL Albumin 2.8 L (3.5-5.0) g/dL - Imaging and Cardiology Chest x-ray: report reviewed, image reviewed Assessment and Plan (1) Pericardial effusion Status: Acute (2) Cardiac tamponade Status: Acute Plan: 1. Plan to DC mediastinal chest tube today. 2. Management of anti-arrythmics/anticoagulation per cardiology. 3. Encourage IS use. 4. your medical management. 5. Will follow patient while in hospital. Time with Patient: Greater than 30
--- NOTE | 2016-10-20 10:27 | ECHOF ---
Referral Reason:S/P Pericard. Window Assess Effusion MEASUREMENTS -------- HEIGHT: 157.5 cm WEIGHT: 88.0 kg BP: 117/52 FINDINGS -------- Sinus rhythm. Eval Pericardial Effusion:Pt. had a Pericardial Window 10/10/2016. Overall left ventricular systolic function is low-normal with, an EF between 50 - 55 %. There is a moderate pericardial effusion located near the left ventricle. CONCLUSIONS -------- 1. Eval Pericardial Effusion:Pt. had a Pericardial Window 10/10/2016. 2. Overall left ventricular systolic function is low-normal with, an EF between 50 - 55 %. 3. There is a moderate pericardial effusion located near the left ventricle. FITTING ROOM MAINTENANCE MECHANIC: Loretta Parikh RDCS
--- NOTE | 2016-10-20 11:13 | CDI ---
In responding to this query, please exercise your independent professional judgment. The [facility] Coding Staff and Clinical Documentation Specialists appreciate your assistance in clarifying documentation, maintaining compliance with coding guidelines, accurately documenting patients condition and capturing severity of illness. The fact that a question is asked does not imply that any particular answer is desired or expected. Communication forms are a method of clarifying documentation and are not made part of the Legal Health Record. Thank you in advance for your clarification. Last Revision, July 2015 Vidal [address] [facility] [place] [address] Documentation Clarification Form Date: 10/20/2016 11:02:00 AM From: Diane Delgado CCS, CCDS Admit Date: 10/17/2016 2:24:00 PM Patient Name: Temo Schafer Visit Number: [id number] Discharge Date: Dr. Yaima Morales: Atrial fibrillation is documented in the H&P and also cardiology progress notes , noted be a new onset. Per the cardiothoracic surgeon's PN 10/19, the patient is still in Atrial Fibrillation. History/Risk Factors: Metastic Lung CA status post lobectomy, Prostate CA status post chemo & radiation, COPD, former smoker and pneumonia. Clinical Indicators: Presented with difficulty breathing, found to have a large pericardial effusion and cardiac tamponade. EKG/telemetry: R 113 Tachycardia w/PVCs. ECHO: Left ventricular systolic function low normal w/EF 50-55%, large generalized pericardial effusion. HRs: 114, 90s, 144, 120s, 60s, 119 Treatment: IV Cardizem, IV Cefazolin, IV Levaquin, Albuterol INH, IV Solumedrol , IV fluid bolus, IV Calcium Gluconate Consults: Cardiology, Cardiothoracic Surgery, Oncology, Pulmonology In your professional opinion, can you please clarify the type of atrial fibrillation, if known? Chronic/Permanent Paroxysmal Persistent Other, please specify Unable to determine Please document in your progress notes and discharge summary in order to capture severity of illness and risk of mortality. Include clinical findings that support your diagnosis. FYI: Press F11 to launch patient chart Place X here if this finding has no clinical significance, is not applicable or if you are not able to provide any additional documentation. Thank You. LUCRETIA
--- NOTE | 2016-10-20 11:17 | XR ---
EXAMINATION TYPE: XR chest 1V portable DATE OF EXAM: 10/20/2016 6:34 AM COMPARISON: Prior chest x-ray 19 October 2016 HISTORY: Abnormal chest x-ray TECHNIQUE: Single frontal view of the chest is obtained. FINDINGS: No significant interval change is evident. IMPRESSION: Similar findings to previous exam. There may be underlying volume overload, congestive h eart failure, correlate to exclude pneumonia. Pericardial chest tube is suspected.
--- NOTE | 2016-10-20 11:31 | P.PN ---
Subjective Patient presented with shortness of breath found to have a pericardial effusion. And is now status post pericardial window. Remains in the ICU. He is extubated. He is having episodes of paroxysmal atrial fibrillation in which she is still on the Cardizem drip at 10 mics an hour. Amiodarone has been switched to oral. Patient lying in bed comfortably. Denies any chest pain. Said improvement in his breathing. Denies any nausea or vomiting. Spent a couple a days since his last bowel movement. But he is passing gas no abdominal pain. Adequate urine output. Objective - Vital Signs Vital signs: Vital Signs Temp 97.9 F 10/20/16 08:00 Pulse 75 10/20/16 11:00 Resp 33 H 10/20/16 11:00 BP 102/68 10/19/16 08:00 Pulse Ox 96 10/20/16 11:00 Intake & Output 10/19/16 10/20/16 10/20/16 18:59 06:59 18:59 Intake Total 1315.5 595 100 Output Total 810 962 475 Balance 505.5 -367 -375 Weight 83.1 kg Intake: IV 570 220 100 Sodium Chloride 0.9% 1, 570 220 100 000 ml @ 20 mls/hr IV . Q24H [facility] Rx#:[id number] Intake, IV Titration 265.5 125 Amount Diltiazem 125 mg In 115.5 125 Sodium Chloride 0.9% 100 ml @ 10 MG/HR 10 mls/hr IV .[id number] [facility] Rx#: [id number] Levofloxacin 750Mg-D5w 150 Pmx 750 mg In Dextrose/ Water 1 150ml.bag @ 100 mls/hr IVPB Q24H [facility] Rx#: [id number] Oral 480 250 Output: Chest Tube Drainage 40 2 mediastinal 40 2 Urine 770 960 475 Other: Voiding Method Indwelling Catheter Indwelling Catheter Indwelling Catheter ABP, PAP, CO, CI - Last Documented Arterial Blood Pressure 115/31 - Exam Head normocephalic Neck supple Lungs clear to auscultation bilaterally no wheezing or crackles. Chest tube in place. Heart regular rate and rhythm S1-S2, no rub or gallop Abdomen is soft nontender nondistended positive bowel sounds no hepatosplenomegaly Extremities no edema Neuro alert and orientated to 3 - Labs CBC & Chem 7: 10/20/16 05:06 10/20/16 05:06 Labs: Abnormal Lab Results - Last 24 Hours (Table) 10/19/16 10/19/16 10/20/16 Range/Units 12:57 17:16 05:06 WBC 14.2 H (3.8-10.6) k/uL RBC 3.26 L (4.30-5.90) m/uL Hgb 10.2 L (13.0-17.5) gm/dL Hct 30.9 L (39.0-53.0) % Neutrophils # 12.9 H (1.3-7.7) k/uL Lymphocytes # 0.7 L (1.0-4.8) k/uL PT (9.0-12.0) sec BUN (9-20) mg/dL Glucose (74-99) mg/dL POC Glucose (mg/dL) 121 H 105 H (75-99) mg/dL Calcium (8.4-10.2) mg/dL Phosphorus (2.5-4.5) mg/dL Total Bilirubin (0.2-1.3) mg/dL Unconjugated Bilirubin (0.0-1.1) mg/dL Delta Bilirubin (0.0-0.2) mg/dL AST (17-59) U/L ALT (21-72) U/L Total Protein (6.3-8.2) g/dL Albumin (3.5-5.0) g/dL 10/20/16 10/20/16 10/20/16 Range/Units 05:06 05:15 07:30 WBC (3.8-10.6) k/uL RBC (4.30-5.90) m/uL Hgb (13.0-17.5) gm/dL Hct (39.0-53.0) % Neutrophils # (1.3-7.7) k/uL Lymphocytes # (1.0-4.8) k/uL PT 20.3 H (9.0-12.0) sec BUN 39 H (9-20) mg/dL Glucose 118 H (74-99) mg/dL POC Glucose (mg/dL) 108 H (75-99) mg/dL Calcium 8.0 L (8.4-10.2) mg/dL Phosphorus 2.0 L (2.5-4.5) mg/dL Total Bilirubin 2.3 H (0.2-1.3) mg/dL Unconjugated Bilirubin 1.2 H (0.0-1.1) mg/dL Delta Bilirubin 1.1 H (0.0-0.2) mg/dL AST 488 H (17-59) U/L ALT 1880 H (21-72) U/L Total Protein 5.7 L (6.3-8.2) g/dL Albumin 2.8 L (3.5-5.0) g/dL Assessment and Plan Plan: 1. Large pericardial effusion, most likely malignant awaiting pathology report , status post pericardial window postoperative day #2. Cardiothoracic surgery following closely. Repeat echo shows a moderate pericardial effusion located near the left ventricle 2. Atrial fibrillation with rapid ventricular response: New onset, cardiology following closely. Currently on IV Cardizem and oral amiodarone 3. 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 oncology following 4. Acute liver failure with significant transaminitis: Exact etiology unclear to me. Liver ultrasound was a suboptimal study would consider repeat imaging within the next day or 2. Patient remained hemodynamically stable. Possibly attributed to liver congestion. Rule out liver metastasis. Hepatitis panel negative. Liver numbers are trending down. 5. Coagulopathy with elevated INR: Secondary to acute liver failure would continue to monitor INR daily. 6. Right lower lobe pneumonia on IV Levaquin 7. History of rheumatoid arthritis 8. History of prostate cancer with prior radiation therapy 9. Benign prostatic hyperplasia DVT prophylaxis subcu SCDs
[2016-10-20 12:02] LABS: Glucose,Whole Blood 138 mg/dL (75-99)
[2016-10-20] MEDS ORDERED: AMIODARONE 200 MG TAB PO ONE (14:00)
[2016-10-20] MEDS: LEVOFLOXACIN 750MG-D5W PMX 750 MG in DEXTROSE/WATER 1 150ML.BAG IVPB SCH (14:25)
[2016-10-20] MEDS: SODIUM CHLORIDE 0.9% 1,000 ML IV SCH (14:26)
--- NOTE | 2016-10-20 14:32 | PN ---
Mr. Schafer is a 80-year-old male with known history of chronic lung carcinoma with recurrence who presented with large pericardial effusion, underwent pericardial window. He has had episode of paroxysmal atrial fibrillation, he is in sinus mechanism at this time. He denies any chest pain. His breathing has been stable. He denies any dyspnea. His pericardial tube has been removed. He had an echocardiogram done today that revealed a moderate pericardial effusion near the left ventricle with an ejection fraction of 50% to 55%. He continues to be on IV Cardizem, amiodarone 200 mg twice a day. PHYSICAL EXAMINATION: Blood pressure 113/40 with a heart rate 70. Lungs with mild decreased in breath sounds. HEART: Regular rate and rhythm. S1, S2 with a systolic murmur, ejection type, heard at the base, mid=peaking with no rub. ABDOMEN: Soft, nontender. EXTREMITIES: No edema. Lab data revealed a BUN and creatinine of 39 and 0.8. His AST is a 48, ALT of 1880 which has improved compared with his admission. His hemoglobin is 10.2. IMPRESSION: 1. Status post pericardial window for large pericardial effusion. 2. Metastatic lung carcinoma. 3. Paroxysmal atrial fibrillation. RECOMMENDATION: From the cardiac standpoint, I will stop the IV Cardizem. I will switch her to oral. I will increase the dose of the amiodarone, will continue to follow his liver function tests and depending on that, further recommendations will be made.
[2016-10-20] MEDS: DILTIAZEM ORAL 30 MG TAB PO SCH ×2 (16:17→21:02)
[2016-10-20 17:11] LABS: Glucose,Whole Blood 121 mg/dL (75-99)
--- NOTE | 2016-10-20 18:34 | P.PN ---
Subjective Principal diagnosis: Pericardial effusion This is a very pleasant 80-year-old gentleman who follows with Dr. Mcginnis as his primary care provider. He has a history of COPD, gastroesophageal reflux disease, prostate cancer with previous radiation, rheumatoid arthritis. He also has a history of non-small cell lung cancer status post right lobectomy and chemotherapy with his last chemotherapy treatment in November 2015. A PET scan from July 2016 revealed increased size of the mediastinal lymph nodes and uptake there and also revealed destructive lesions in the right iliac bone. The patient had been referred to interventional radiology at [facility] in this regard. He presented here on 10/17/2016 with complaints of increasing shortness of breath. His initial chest x-ray revealed evidence of an enlargement in the currently cardiac silhouette and subsequently undergone a computed tomography scan of the chest which revealed a large pericardial effusion. He is now status post subxiphoid pericardiostomy. His is postoperative day #2. He is in the again today in follow-up in the intensive care unit. He is awake and alert in no acute distress. His mediastinal chest tube was removed this morning. He denies any worsening shortness of breath, cough or congestion. He has had issues with atrial fibrillation and rapid ventricular response and remains on a Cardizem drip at 10 mg per hour and has been converted to oral amiodarone. Currently he is in a normal sinus rhythm. A follow-up echocardiogram today revealed a moderate pericardial effusion located near the left ventricle Objective - Vital Signs Vital signs: Vital Signs Temp 98.1 F 10/20/16 16:00 Pulse 71 10/20/16 18:00 Resp 24 10/20/16 18:00 BP 102/68 10/19/16 08:00 Pulse Ox 97 10/20/16 18:00 Intake & Output 10/19/16 10/20/16 10/20/16 18:59 06:59 18:59 Intake Total 1315.5 595 220 Output Total 810 962 955 Balance 505.5 -367 -735 Weight 83.1 kg Intake: IV 570 220 220 Sodium Chloride 0.9% 1, 570 220 220 000 ml @ 20 mls/hr IV . Q24H [facility] Rx#:[id number] Intake, IV Titration 265.5 125 Amount Diltiazem 125 mg In 115.5 125 Sodium Chloride 0.9% 100 ml @ 10 MG/HR 10 mls/hr IV .[id number] [facility] Rx#: [id number] Levofloxacin 750Mg-D5w 150 Pmx 750 mg In Dextrose/ Water 1 150ml.bag @ 100 mls/hr IVPB Q24H [facility] Rx#: [id number] Oral 480 250 Output: Chest Tube Drainage 40 2 mediastinal 40 2 Urine 770 960 955 Other: Voiding Method Indwelling Catheter Indwelling Catheter Indwelling Catheter ABP, PAP, CO, CI - Last Documented Arterial Blood Pressure 106/54 - Exam GENERAL EXAM: Alert, fairly comfortable in no apparent distress. HEAD: Normocephalic. EYES: Normal reaction of pupils, equal size. NOSE: Clear with pink turbinates. THROAT: No erythema or exudates. NECK: No masses, no JVD. CHEST: No chest wall deformity. LUNGS: Equal air entry with few scattered rhonchi.. CVS: S1 and S2 normal with an audible systolic murmur, faint rub, regular rhythm. ABDOMEN: No hepatosplenomegaly, normal bowel sounds, no guarding or rigidity. SPINE: No scoliosis or deformity SKIN: No rashes CENTRAL NERVOUS SYSTEM: No focal deficits, tone is normal in all 4 extremities. Extremities: There is no significant peripheral edema. No clubbing, no cyanosis. Peripheral pulses are intact. - Labs CBC & Chem 7: 10/20/16 05:06 10/20/16 05:06 Labs: Abnormal Lab Results - Last 24 Hours (Table) 10/20/16 10/20/16 10/20/16 Range/Units 05:06 05:06 05:15 WBC 14.2 H (3.8-10.6) k/uL RBC 3.26 L (4.30-5.90) m/uL Hgb 10.2 L (13.0-17.5) gm/dL Hct 30.9 L (39.0-53.0) % Neutrophils # 12.9 H (1.3-7.7) k/uL Lymphocytes # 0.7 L (1.0-4.8) k/uL PT 20.3 H (9.0-12.0) sec BUN 39 H (9-20) mg/dL Glucose 118 H (74-99) mg/dL POC Glucose (mg/dL) (75-99) mg/dL Calcium 8.0 L (8.4-10.2) mg/dL Phosphorus 2.0 L (2.5-4.5) mg/dL Total Bilirubin 2.3 H (0.2-1.3) mg/dL Unconjugated Bilirubin 1.2 H (0.0-1.1) mg/dL Delta Bilirubin 1.1 H (0.0-0.2) mg/dL AST 488 H (17-59) U/L ALT 1880 H (21-72) U/L Total Protein 5.7 L (6.3-8.2) g/dL Albumin 2.8 L (3.5-5.0) g/dL 10/20/16 10/20/16 10/20/16 Range/Units 07:30 12:00 17:09 WBC (3.8-10.6) k/uL RBC (4.30-5.90) m/uL Hgb (13.0-17.5) gm/dL Hct (39.0-53.0) % Neutrophils # (1.3-7.7) k/uL Lymphocytes # (1.0-4.8) k/uL PT (9.0-12.0) sec BUN (9-20) mg/dL Glucose (74-99) mg/dL POC Glucose (mg/dL) 108 H 138 H 121 H (75-99) mg/dL Calcium (8.4-10.2) mg/dL Phosphorus (2.5-4.5) mg/dL Total Bilirubin (0.2-1.3) mg/dL Unconjugated Bilirubin (0.0-1.1) mg/dL Delta Bilirubin (0.0-0.2) mg/dL AST (17-59) U/L ALT (21-72) U/L Total Protein (6.3-8.2) g/dL Albumin (3.5-5.0) g/dL Assessment and Plan Plan: Impression: #1 Pericardial effusion status post subxiphoid pericardiostomy with approximately 800 mL of bloody pericardial effusion removed. #2 Atrial fibrillation with varying ventricular response, maintained on diltiazem and amiodarone. Currently in normal sinus rhythm. INR 2.1 secondary to liver abnormalities. #3 Non-small cell lung cancer status post right lobectomy and chemotherapy, last treatment in November 2015. 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 Computed tomography scan in July 2016 revealed increased mediastinal nodes. A subsequent PET scan showed uptake in this area along with destructive-appearing lesions in the right iliac bone. He is following up with interventional radiology at [facility] in this regard. #4 Chronic obstructive pulmonary diseasecurrently inactive and stable. #4 History of prostate cancer status post radiation therapy. #5 Rheumatoid arthritis maintained on methotrexate and Plaquenil. #6 History of 50+ year pack per day smoking, quit in July 2015. #7 Elevated liver enzymes suspect shock liver. Hepatitis screen is negative. Plan: The patient was seen and evaluated by Dr. Champagne. His chest x-ray and labs were reviewed. We'll continue with his current medications including short acting bronchodilators 3 times a day and when necessary. Cardiology is on the case regarding his atrial fibrillation. We'll repeat his chest x-ray in the a.m. He remains on empiric antibiotics in the form of Levaquin. We have encouraged increased use of the incentive spirometer and cough and deep breathing exercises. We'll continue to follow make further recommendations based on his clinical status.
[2016-10-20 20:10] LABS: Glucose,Whole Blood 121 mg/dL (75-99)
[2016-10-21 05:30] LABS: Basophils % (A) 0 %; CHCM 32.8; Eosinophils # (A) 0.2 k/uL (0-0.7); Eosinophils % (A) 2 %; HCT 31.7 % (39.0-53.0); HDW 2.91; HGB 10.4 gm/dL (13.0-17.5); Luc # (Auto) 0.16; Luc % (Auto) 1; Lymphocytes # (A) 0.8 k/uL (1.0-4.8); Lymphocytes % (A) 7 %; MCH 31.1 pg (25.0-35.0); MCHC 32.8 g/dL (31.0-37.0); Mean Platelet Volume 8.1; Monocytes # (A) 0.3 k/uL (0-1.0); Monocytes % (A) 3 %; Neutrophils # (A) 9.9 k/uL (1.3-7.7); Neutrophils % (A) 87 %; RBC 3.34 m/uL (4.30-5.90); RDW 15.3 % (11.5-15.5); WBC 11.4 k/uL (3.8-10.6); WBC (Perox) 11.25
[2016-10-21 05:37] LABS: INR 1.9 (<1.1); Prothrombin Time 17.9 sec (9.0-12.0)
[2016-10-21 05:44] LABS: AST 163 U/L (17-59); Alkaline Phosphatase 104 U/L (38-126); Anion Gap 8 mmol/L; Blood Urea Nitrogen 25 mg/dL (9-20); Calcium 7.9 mg/dL (8.4-10.2); Carbon Dioxide 23 mmol/L (22-30); Chloride 104 mmol/L (98-107); Glucose 107 mg/dL (74-99); Non-African American GFR(MDRD) >60 (>60 ml/min/1.73 sqM); Phosphorous 2.2 mg/dL (2.5-4.5); Potassium 4.2 mmol/L (3.5-5.1); Sodium 135 mmol/L (137-145); Total Bilirubin 2.1 mg/dL (0.2-1.3); Total Protein 5.4 g/dL (6.3-8.2)
[2016-10-21 05:51] LABS: ALT 1258 U/L (21-72)
--- NOTE | 2016-10-21 07:56 | XR ---
EXAMINATION TYPE: XR chest 1V portable DATE OF EXAM: 10/21/2016 6:14 AM COMPARISON: Prior chest x-ray 2October 2016 HISTORY: Chest tube TECHNIQUE: Single frontal view of the chest is obtained. FINDINGS: Findings are similar. Median sternal drain thought to be in place. There is no evident pne umothorax. Heart remains enlarged. Lung volumes are low and the patient is rotated. Interstitium is i ncreased. No sizable effusion. IMPRESSION: Similar findings, correlate for possible congestive heart failure. Follow-up recommended .
[2016-10-21] MEDS: IPRATROPIUM 0.5 MG/2.5 ML NEBU INHALATION SCH ×3 (08:22→20:09)
[2016-10-21] MEDS: LEVALBUTEROL NEB (CONC) 1.25 MG/0.5 ML AMP INHALATION SCH ×3 (08:22→20:09)
[2016-10-21] MEDS ORDERED: PHYTONADIONE 5 MG in SODIUM CHLORIDE 0.9% 50 ML IVPB STA (08:41)
[2016-10-21] MEDS: INSULIN LISPRO (humaLOG) 300 UNIT/3 ML VIAL SQ SCH ×4 (09:13→21:56)
[2016-10-21] MEDS: AMIODARONE 200 MG TAB PO SCH ×2 (09:14→20:55)
[2016-10-21] MEDS: DILTIAZEM ORAL 30 MG TAB PO SCH ×3 (09:14→20:55)
[2016-10-21] MEDS: PANTOPRAZOLE 40 MG/10 ML VIAL IVP SCH (09:14)
[2016-10-21 10:16] VITALS: BMI 25.5
--- NOTE | 2016-10-21 11:22 | P.PN ---
Subjective Principal diagnosis: Pericardial effusion This patient is a 80-year-old man who is a patient of Dr. Diana. He has a history of COPD GERD, prostate cancer with previous radiation, and rheumatoid arthritis. He also had a history of non-small cell lung cancer status post right lobectomy and chemotherapy and his last chemotherapy treatment was in November 2015. The patient had a PET scan and July 2016 which in revealed increased size of the mediastinal lymph nodes and uptake and also revealed destructive lesions in the right iliac bone. The patient has been referred to interventional radiology at [facility]. The patient came in on 2016 with complaints of increasing shortness of breath. His chest x-ray revealed an enlargement in the cardiac silhouette and therefore he went for a computed tomography scan of the chest which revealed a large pericardial effusion. He is now status post pericardiostomy. He is postop day 3. And he is being followed up within the intensive care unit today. He is awake alert in no acute distress and he is sitting up in his chair. His chest tube was removed 2 days ago he denies any worsening shortness of breath any cough sputum production or congestion. Previously had some issues with Sherrell barrow and was on a Cardizem drip and had been switched to oral amiodarone and is now in a normal sinus rhythm. Objective - Vital Signs Vital signs: Vital Signs Temp 97.9 F 10/21/16 08:00 Pulse 75 10/21/16 08:39 Resp 20 10/21/16 08:00 BP 119/49 10/20/16 21:00 Pulse Ox 98 10/21/16 08:00 Intake & Output 10/20/16 10/21/16 10/21/16 18:59 06:59 18:59 Intake Total 240 410 Output Total 1005 1235 50 Balance -765 -825 -50 Weight 83.1 kg 83.1 kg 83.1 kg Intake: IV 240 260 Sodium Chloride 0.9% 1, 240 260 000 ml @ 20 mls/hr IV . Q24H [facility] Rx#:[id number] Oral 150 Output: Urine 1005 1235 50 Other: Voiding Method Indwelling Catheter Indwelling Catheter Indwelling Catheter ABP, PAP, CO, CI - Last Documented Arterial Blood Pressure 100/36 - Exam GENERAL EXAM: Alert, active, comfortable in no apparent distress. HEAD: Normocephalic. EYES: Normal reaction of pupils, equal size. NOSE: Clear with pink turbinates. THROAT: No erythema or exudates. NECK: No masses, no JVD. CHEST: No chest wall deformity. LUNGS: Equal air entry with no crackles, wheeze, rhonchi or dullness. CVS: S1 and S2 normal with no audible mumurs, regular rhythm. Faint rub noted ABDOMEN: No hepatosplenomegaly, normal bowel sounds, no guarding or rigidity. SPINE: No scoliosis or deformity SKIN: No rashes, CENTRAL NERVOUS SYSTEM: No focal deficits, tone is normal in all 4 extremities. - Labs CBC & Chem 7: 10/21/16 05:20 10/21/16 05:20 Labs: Abnormal Lab Results - Last 24 Hours (Table) 10/20/16 10/20/16 10/20/16 Range/Units 12:00 17:09 20:09 WBC (3.8-10.6) k/uL RBC (4.30-5.90) m/uL Hgb (13.0-17.5) gm/dL Hct (39.0-53.0) % Neutrophils # (1.3-7.7) k/uL Lymphocytes # (1.0-4.8) k/uL PT (9.0-12.0) sec Sodium (137-145) mmol/L BUN (9-20) mg/dL Glucose (74-99) mg/dL POC Glucose (mg/dL) 138 H 121 H 121 H (75-99) mg/dL Calcium (8.4-10.2) mg/dL Phosphorus (2.5-4.5) mg/dL Total Bilirubin (0.2-1.3) mg/dL AST (17-59) U/L ALT (21-72) U/L Total Protein (6.3-8.2) g/dL Albumin (3.5-5.0) g/dL 10/21/16 10/21/16 10/21/16 Range/Units 05:20 05:20 05:20 WBC 11.4 H (3.8-10.6) k/uL RBC 3.34 L (4.30-5.90) m/uL Hgb 10.4 L (13.0-17.5) gm/dL Hct 31.7 L (39.0-53.0) % Neutrophils # 9.9 H (1.3-7.7) k/uL Lymphocytes # 0.8 L (1.0-4.8) k/uL PT 17.9 H (9.0-12.0) sec Sodium 135 L (137-145) mmol/L BUN 25 H (9-20) mg/dL Glucose 107 H (74-99) mg/dL POC Glucose (mg/dL) (75-99) mg/dL Calcium 7.9 L (8.4-10.2) mg/dL Phosphorus 2.2 L (2.5-4.5) mg/dL Total Bilirubin 2.1 H (0.2-1.3) mg/dL AST 163 H (17-59) U/L ALT 1258 H (21-72) U/L Total Protein 5.4 L (6.3-8.2) g/dL Albumin 2.7 L (3.5-5.0) g/dL - Imaging and Cardiology Chest x-ray: report reviewed Assessment and Plan Plan: Assessment #1 pericardial effusion status post pericardiostomy, patient had about 100 mL of blood from removed from the pericardial effusion. #2 A. fib with varying ventricular response patient is on oral amiodarone and is currently in a normal sinus rhythm #3 non-small cell lung cancer status post right lobectomy and chemotherapy last treatment in November 2015. Patient is being followed at [facility] for this. #4 COPD #5 rheumatoid arthritis on methotrexate and Plaquenil #6 history of 50+ year pack per day smoking quit in July 2015 #7 elevated liver enzymes suspect shock liver hepatitis screen has been negative Plan The patient is examined and evaluated in the ICU today. The patient is currently hemodynamically stable. The patient continues on 4 L of oxygen via nasal cannula. Continuing with his current medication, and antibiotis, including his nebulizer treatment is necessary. The patient should be encouraged to ambulate and use the incentive spirometer as well as cough and deep breathe. The chest x-ray and all labs were reviewed. I performed an examination of the patient and discussed their mangement with the nurse practitioner. I have reviewed the nurse practitioner's note and agree with the documented findings and plan of care.
--- NOTE | 2016-10-21 12:59 | PN ---
Mr. Schafer is a 80-year-old male who presented with evidence consistent with large pericardial effusion, malignant, underwent pericardial window. He is feeling better. He still has episode of paroxysmal atrial fibrillation. He denies any symptoms of chest pain. He denies any dizziness. He denies any palpitation. He is on amiodarone 400 mg twice a day, diltiazem 30 mg 3 times a day. PHYSICAL EXAMINATION: Blood pressure 100/36 with a heart in the 70s. LUNGS: With mild decrease in breath sounds. No wheezes. HEART: S1, S2, no S3, no rub. ABDOMEN: Soft, nontender. EXTREMITIES: No edema. Lab data revealed a BUN and creatinine 25 and 0.7. His ALT is down to 1258. His INR is 1.9. IMPRESSION: 1. Pericardial effusion malignant status post pericardial window. 2. Paroxysmal atrial fibrillation. 3. Metastatic lung carcinoma. RECOMMENDATIONS: From the cardiac standpoint, I will continue present therapy. Will continue to follow his rhythm. If he persists with the atrial fibrillation, and his INR corrects then he may be a candidate for anticoagulation.
[2016-10-21] MEDS: LEVOFLOXACIN 750MG-D5W PMX 750 MG in DEXTROSE/WATER 1 150ML.BAG IVPB SCH (15:17)
--- NOTE | 2016-10-21 15:29 | P.PN ---
<Cheryl De Leon - Last Filed: 10/21/16 15:28> Subjective Principal diagnosis: Pericardial effusion S/P POD #3 pericardial window. Pt currently sitting up in chair, in no apparent distress, eating breakfast. Objective - Vital Signs Vital signs: Vital Signs Temp 98.4 F 10/21/16 04:00 Pulse 73 10/21/16 07:00 Resp 22 10/21/16 07:00 BP 119/49 10/20/16 21:00 Pulse Ox 96 10/21/16 07:00 Intake & Output 10/20/16 10/21/16 10/21/16 18:59 06:59 18:59 Intake Total 240 410 Output Total 1005 1235 Balance -765 -825 Weight 83.1 kg 83.1 kg Intake: IV 240 260 Sodium Chloride 0.9% 1, 240 260 000 ml @ 20 mls/hr IV . Q24H [facility] Rx#:[id number] Oral 150 Output: Urine 1005 1235 Other: Voiding Method Indwelling Catheter Indwelling Catheter ABP, PAP, CO, CI - Last Documented Arterial Blood Pressure 99/37 - Constitutional General appearance: Present: cooperative, no acute distress - Respiratory Details: Lungs sounds diminished bilaterally. Respirations even, nonlabored. Currently on 4 L nasal cannula. Able to achieve 1000 mL on incentive spirometry. - Cardiovascular Details: S1, S2 present. Regular rate and rhythm, normal sinus rhythm on telemetry. No edema present. Teds, SCDs present - Gastrointestinal Gastrointestinal Comment(s): Abdomen soft, nontender, nondistended. Active bowel sounds 4 quadrants. Positive flatus but negative BM since surgery. Tolerating diet. - Genitourinary Genitourinary Comment(s): Moss present draining clear, yellow urine. - Integumentary Integumentary Comment(s): Anterior chest incision covered dry intact dressing. - Musculoskeletal Musculoskeletal: Present: gait normal - Psychiatric Psychiatric: Present: A&O x's 3, appropriate affect, intact judgment & insight - Allied health notes Allied health notes reviewed: nursing - Labs CBC & Chem 7: 10/21/16 05:20 10/21/16 05:20 Labs: Abnormal Lab Results - Last 24 Hours (Table) 10/20/16 10/20/16 10/20/16 Range/Units 12:00 17:09 20:09 WBC (3.8-10.6) k/uL RBC (4.30-5.90) m/uL Hgb (13.0-17.5) gm/dL Hct (39.0-53.0) % Neutrophils # (1.3-7.7) k/uL Lymphocytes # (1.0-4.8) k/uL PT (9.0-12.0) sec Sodium (137-145) mmol/L BUN (9-20) mg/dL Glucose (74-99) mg/dL POC Glucose (mg/dL) 138 H 121 H 121 H (75-99) mg/dL Calcium (8.4-10.2) mg/dL Phosphorus (2.5-4.5) mg/dL Total Bilirubin (0.2-1.3) mg/dL AST (17-59) U/L ALT (21-72) U/L Total Protein (6.3-8.2) g/dL Albumin (3.5-5.0) g/dL 10/21/16 10/21/16 10/21/16 Range/Units 05:20 05:20 05:20 WBC 11.4 H (3.8-10.6) k/uL RBC 3.34 L (4.30-5.90) m/uL Hgb 10.4 L (13.0-17.5) gm/dL Hct 31.7 L (39.0-53.0) % Neutrophils # 9.9 H (1.3-7.7) k/uL Lymphocytes # 0.8 L (1.0-4.8) k/uL PT 17.9 H (9.0-12.0) sec Sodium 135 L (137-145) mmol/L BUN 25 H (9-20) mg/dL Glucose 107 H (74-99) mg/dL POC Glucose (mg/dL) (75-99) mg/dL Calcium 7.9 L (8.4-10.2) mg/dL Phosphorus 2.2 L (2.5-4.5) mg/dL Total Bilirubin 2.1 H (0.2-1.3) mg/dL AST 163 H (17-59) U/L ALT 1258 H (21-72) U/L Total Protein 5.4 L (6.3-8.2) g/dL Albumin 2.7 L (3.5-5.0) g/dL - Imaging and Cardiology Chest x-ray: report reviewed, image reviewed Assessment and Plan (1) Pericardial effusion Status: Acute (2) Cardiac tamponade Status: Acute Plan: 1. Management of anti-arrythmics/anticoagulation per cardiology. 2. Encourage IS use. 3. your medical management. 4. May transfer out of ICU from our standpoint. 5. Will follow patient while in hospital. Time with Patient: Greater than 30 <Bala Hays - Last Filed: 10/21/16 18:40> Subjective Principal diagnosis: CYTOLOGY (+) FOR MALIGNANT CELLS IN PERICARDIAL FLUID Objective - Vital Signs Vital signs: Vital Signs Temp 98.0 F 10/21/16 16:00 Pulse 70 10/21/16 17:00 Resp 24 10/21/16 17:00 BP 115/48 10/21/16 17:00 Pulse Ox 95 10/21/16 17:00 Intake & Output 10/20/16 10/21/16 10/21/16 18:59 06:59 18:59 Intake Total 240 410 810 Output Total 1005 1235 1080 Balance -765 -825 -270 Weight 83.1 kg 83.1 kg 83.1 kg Intake: IV 240 260 160 Sodium Chloride 0.9% 1, 240 260 160 000 ml @ 20 mls/hr IV . Q24H [facility] Rx#:[id number] Intake, IV Titration 50 Amount Phytonadione 5 mg In 50 Sodium Chloride 0.9% 50 ml @ 100 mls/hr IVPB [facility] Rx#:[id number] Oral 150 600 Output: Urine 1005 1235 1080 Other: Voiding Method Indwelling Catheter Indwelling Catheter Indwelling Catheter ABP, PAP, CO, CI - Last Documented Arterial Blood Pressure 112/55 - Labs CBC & Chem 7: 10/21/16 05:20 10/21/16 05:20 Labs: Abnormal Lab Results - Last 24 Hours (Table) 10/20/16 10/21/16 10/21/16 Range/Units 20:09 05:20 05:20 WBC 11.4 H (3.8-10.6) k/uL RBC 3.34 L (4.30-5.90) m/uL Hgb 10.4 L (13.0-17.5) gm/dL Hct 31.7 L (39.0-53.0) % Neutrophils # 9.9 H (1.3-7.7) k/uL Lymphocytes # 0.8 L (1.0-4.8) k/uL PT 17.9 H (9.0-12.0) sec Sodium (137-145) mmol/L BUN (9-20) mg/dL Glucose (74-99) mg/dL POC Glucose (mg/dL) 121 H (75-99) mg/dL Calcium (8.4-10.2) mg/dL Phosphorus (2.5-4.5) mg/dL Total Bilirubin (0.2-1.3) mg/dL AST (17-59) U/L ALT (21-72) U/L Total Protein (6.3-8.2) g/dL Albumin (3.5-5.0) g/dL 10/21/16 Range/Units 05:20 WBC (3.8-10.6) k/uL RBC (4.30-5.90) m/uL Hgb (13.0-17.5) gm/dL Hct (39.0-53.0) % Neutrophils # (1.3-7.7) k/uL Lymphocytes # (1.0-4.8) k/uL PT (9.0-12.0) sec Sodium 135 L (137-145) mmol/L BUN 25 H (9-20) mg/dL Glucose 107 H (74-99) mg/dL POC Glucose (mg/dL) (75-99) mg/dL Calcium 7.9 L (8.4-10.2) mg/dL Phosphorus 2.2 L (2.5-4.5) mg/dL Total Bilirubin 2.1 H (0.2-1.3) mg/dL AST 163 H (17-59) U/L ALT 1258 H (21-72) U/L Total Protein 5.4 L (6.3-8.2) g/dL Albumin 2.7 L (3.5-5.0) g/dL
--- NOTE | 2016-10-21 16:42 | P.PN ---
Subjective Patient presented with shortness of breath found to have a pericardial effusion. And is now status post pericardial window. Remains in the ICU. He is extubated. He is having episodes of paroxysmal atrial fibrillation in which she is still on the Cardizem drip at 10 mics an hour. Amiodarone has been switched to oral. Patient lying in bed comfortably. Denies any chest pain. Said improvement in his breathing. Denies any nausea or vomiting. Spent a couple a days since his last bowel movement. But he is passing gas no abdominal pain. Adequate urine output. Objective - Vital Signs Vital signs: Vital Signs Temp 97.9 F 10/21/16 08:00 Pulse 75 10/21/16 15:00 Resp 14 10/21/16 15:00 BP 120/47 10/21/16 15:00 Pulse Ox 93 L 10/21/16 15:00 Intake & Output 10/20/16 10/21/16 10/21/16 18:59 06:59 18:59 Intake Total 240 410 790 Output Total 1005 1235 880 Balance -765 -825 -90 Weight 83.1 kg 83.1 kg 83.1 kg Intake: IV 240 260 140 Sodium Chloride 0.9% 1, 240 260 140 000 ml @ 20 mls/hr IV . Q24H [facility] Rx#:[id number] Intake, IV Titration 50 Amount Phytonadione 5 mg In 50 Sodium Chloride 0.9% 50 ml @ 100 mls/hr IVPB [facility]CE [facility] Rx#:[id number] Oral 150 600 Output: Urine 1005 1235 880 Other: Voiding Method Indwelling Catheter Indwelling Catheter Indwelling Catheter ABP, PAP, CO, CI - Last Documented Arterial Blood Pressure 112/55 - Labs CBC & Chem 7: 10/21/16 05:20 10/21/16 05:20 Labs: Abnormal Lab Results - Last 24 Hours (Table) 10/20/16 10/20/16 10/21/16 Range/Units 17:09 20:09 05:20 WBC 11.4 H (3.8-10.6) k/uL RBC 3.34 L (4.30-5.90) m/uL Hgb 10.4 L (13.0-17.5) gm/dL Hct 31.7 L (39.0-53.0) % Neutrophils # 9.9 H (1.3-7.7) k/uL Lymphocytes # 0.8 L (1.0-4.8) k/uL PT (9.0-12.0) sec Sodium (137-145) mmol/L BUN (9-20) mg/dL Glucose (74-99) mg/dL POC Glucose (mg/dL) 121 H 121 H (75-99) mg/dL Calcium (8.4-10.2) mg/dL Phosphorus (2.5-4.5) mg/dL Total Bilirubin (0.2-1.3) mg/dL AST (17-59) U/L ALT (21-72) U/L Total Protein (6.3-8.2) g/dL Albumin (3.5-5.0) g/dL 10/21/16 10/21/16 Range/Units 05:20 05:20 WBC (3.8-10.6) k/uL RBC (4.30-5.90) m/uL Hgb (13.0-17.5) gm/dL Hct (39.0-53.0) % Neutrophils # (1.3-7.7) k/uL Lymphocytes # (1.0-4.8) k/uL PT 17.9 H (9.0-12.0) sec Sodium 135 L (137-145) mmol/L BUN 25 H (9-20) mg/dL Glucose 107 H (74-99) mg/dL POC Glucose (mg/dL) (75-99) mg/dL Calcium 7.9 L (8.4-10.2) mg/dL Phosphorus 2.2 L (2.5-4.5) mg/dL Total Bilirubin 2.1 H (0.2-1.3) mg/dL AST 163 H (17-59) U/L ALT 1258 H (21-72) U/L Total Protein 5.4 L (6.3-8.2) g/dL Albumin 2.7 L (3.5-5.0) g/dL Assessment and Plan Plan: 1. Large pericardial effusion, most likely malignant awaiting pathology report , status post pericardial window postoperative day #3. 2. Atrial fibrillation with rapid ventricular response: New onset, cardiology following closely. Currently on Cardizem and oral amiodarone 3. 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 oncology following. Patient received chemotherapy one year ago. 4. Acute liver failure with significant elevation in liver enzymes. Exact etiology unclear to me. Liver ultrasound was a suboptimal study would consider repeat imaging within the next day or 2. Patient remained hemodynamically stable. Possibly attributed to liver congestion. Rule out liver metastasis. Hepatitis panel negative. Liver numbers are trending down. 5. Coagulopathy with elevated INR: Secondary to acute liver failure would continue to monitor INR daily. 6. Right lower lobe pneumonia on IV Levaquin 7. History of rheumatoid arthritis 8. History of prostate cancer with prior radiation therapy 9. Benign prostatic hyperplasia DVT prophylaxis subcu SCDs
[2016-10-21] MEDS: SODIUM CHLORIDE 0.9% 1,000 ML IV SCH (19:05)
[2016-10-21 22:30] LABS: Glucose,Whole Blood 106 mg/dL (75-99)
--- NOTE | 2016-10-21 23:09 | P.PN ---
Subjective Principal diagnosis: Malignant pericardial effusion The pt 's pericardial drain has been removed. He is still quite weak and SOB even at rest. NO unusual bleeding noted Objective - Vital Signs Vital signs: Vital Signs Temp 98.0 F 10/21/16 16:00 Pulse 78 10/21/16 18:00 Resp 26 H 10/21/16 18:00 BP 117/50 10/21/16 19:00 Pulse Ox 92 L 10/21/16 18:00 Intake & Output 10/21/16 10/21/16 10/22/16 06:59 18:59 06:59 Intake Total 410 810 360 Output Total 1235 1080 Balance -825 -270 360 Weight 83.1 kg 83.1 kg Intake: IV 260 160 Sodium Chloride 0.9% 1, 260 160 000 ml @ 20 mls/hr IV . Q24H [facility] Rx#:[id number] Intake, IV Titration 50 Amount Phytonadione 5 mg In 50 Sodium Chloride 0.9% 50 ml @ 100 mls/hr IVPB ONCE [facility] Rx#:[id number] Oral 150 600 360 Output: Urine 1235 1080 Other: Voiding Method Indwelling Catheter Indwelling Catheter ABP, PAP, CO, CI - Last Documented Arterial Blood Pressure 112/55 - Constitutional General appearance: Present: mild distress - EENT Eyes: Present: PERRLA ENT: Present: hearing grossly normal - Respiratory Respiratory: bilateral: diminished - Cardiovascular Rhythm: irregularly irregular Heart sounds: normal: S1, S2 - Gastrointestinal General gastrointestinal: Present: normal bowel sounds, soft - Neurologic Neurologic: Present: CNII-XII intact - Musculoskeletal Musculoskeletal: Present: generalized weakness, strength equal bilaterally - Psychiatric Psychiatric: Present: A&O x's 3, appropriate affect - Labs CBC & Chem 7: 10/21/16 05:20 10/21/16 05:20 Labs: Abnormal Lab Results - Last 24 Hours (Table) 10/21/16 10/21/16 10/21/16 Range/Units 05:20 05:20 05:20 WBC 11.4 H (3.8-10.6) k/uL RBC 3.34 L (4.30-5.90) m/uL Hgb 10.4 L (13.0-17.5) gm/dL Hct 31.7 L (39.0-53.0) % Neutrophils # 9.9 H (1.3-7.7) k/uL Lymphocytes # 0.8 L (1.0-4.8) k/uL PT 17.9 H (9.0-12.0) sec Sodium 135 L (137-145) mmol/L BUN 25 H (9-20) mg/dL Glucose 107 H (74-99) mg/dL POC Glucose (mg/dL) (75-99) mg/dL Calcium 7.9 L (8.4-10.2) mg/dL Phosphorus 2.2 L (2.5-4.5) mg/dL Total Bilirubin 2.1 H (0.2-1.3) mg/dL AST 163 H (17-59) U/L ALT 1258 H (21-72) U/L Total Protein 5.4 L (6.3-8.2) g/dL Albumin 2.7 L (3.5-5.0) g/dL 10/21/16 Range/Units 21:55 WBC (3.8-10.6) k/uL RBC (4.30-5.90) m/uL Hgb (13.0-17.5) gm/dL Hct (39.0-53.0) % Neutrophils # (1.3-7.7) k/uL Lymphocytes # (1.0-4.8) k/uL PT (9.0-12.0) sec Sodium (137-145) mmol/L BUN (9-20) mg/dL Glucose (74-99) mg/dL POC Glucose (mg/dL) 106 H (75-99) mg/dL Calcium (8.4-10.2) mg/dL Phosphorus (2.5-4.5) mg/dL Total Bilirubin (0.2-1.3) mg/dL AST (17-59) U/L ALT (21-72) U/L Total Protein (6.3-8.2) g/dL Albumin (3.5-5.0) g/dL Assessment and Plan (1) Cardiac tamponade Narrative/Plan: THis has been relived surgically. Pericardial fluid analysis and biopsy of pericardium are pending. Malignancy is most likely. The pt is still SOB, and has intermittent a fib. Defer to the admitting service and other consultants for management in this regard. Status: Acute (2) Non-small cell lung cancer (NSCLC) Narrative/Plan: Pathology is awaited. Assuming malignancy is confirmed, gene markers will be ordered according to the histology. Further treatment plans will depend on those , and of course , the pt's own performance status Status: Acute (3) Coagulopathy Narrative/Plan: THis is due to liver disease, from liver congestion. He has no obvious bleeding. I will administer IV vitamin K Status: Acute
[2016-10-22 06:26] LABS: Glucose,Whole Blood 95 mg/dL (75-99)
[2016-10-22] MEDS: INSULIN LISPRO (humaLOG) 300 UNIT/3 ML VIAL SQ SCH ×4 (06:29→21:59)
[2016-10-22 06:32] LABS: CH 31.3; CHCM 31.8; HCT 40.4 % (39.0-53.0); HDW 2.97; HGB 12.6 gm/dL (13.0-17.5); Hypochromasia Slight; Immature Gran Flag Moderate; MCHC 31.3 g/dL (31.0-37.0); Macrocytosis Slight; Mean Platelet Volume 8.2; RBC 4.08 m/uL (4.30-5.90); RDW 15.5 % (11.5-15.5); WBC 18.4 k/uL (3.8-10.6); WBC (Perox) 17.67
[2016-10-22 06:38] LABS: INR 1.6 (<1.1); Prothrombin Time 15.2 sec (9.0-12.0)
[2016-10-22 06:59] LABS: ALT 996 U/L (21-72); AST 132 U/L (17-59); Alkaline Phosphatase 128 U/L (38-126); Anion Gap 14 mmol/L; Blood Urea Nitrogen 18 mg/dL (9-20); Calcium 8.4 mg/dL (8.4-10.2); Carbon Dioxide 20 mmol/L (22-30); Chloride 101 mmol/L (98-107); Glucose 101 mg/dL (74-99); Magnesium 1.9 mg/dL (1.6-2.3); Non-African American GFR(MDRD) >60 (>60 ml/min/1.73 sqM); Phosphorous 2.3 mg/dL (2.5-4.5); Potassium 4.1 mmol/L (3.5-5.1); Sodium 135 mmol/L (137-145); Total Bilirubin 2.9 mg/dL (0.2-1.3); Total Protein 6.4 g/dL (6.3-8.2)
[2016-10-22 08:27] LABS: Add Differential Manual Differential
[2016-10-22 08:30] LABS: Metamyelocytes % 1.5 %; Myelocytes % 1.5 %; Nucleated Red Blood Cells 0 /100 WBC (0-0); Total Cells Counted 200
[2016-10-22 08:31] LABS: Polychromasia Present; Toxic Granulation Present
[2016-10-22] MEDS: LEVALBUTEROL NEB (CONC) 1.25 MG/0.5 ML AMP INHALATION SCH ×3 (08:35→20:26)
[2016-10-22] MEDS: IPRATROPIUM 0.5 MG/2.5 ML NEBU INHALATION SCH ×3 (08:35→20:26)
[2016-10-22] MEDS: AMIODARONE 200 MG TAB PO SCH ×2 (08:55→21:59)
[2016-10-22] MEDS: DILTIAZEM ORAL 30 MG TAB PO SCH ×3 (08:55→21:59)
[2016-10-22] MEDS: PANTOPRAZOLE 40 MG/10 ML VIAL IVP SCH (08:56)
--- NOTE | 2016-10-22 09:56 | P.PN ---
Subjective Principal diagnosis: Pericardial effusion This patient is a 80-year-old man who is a patient of Dr. Diana. He has a history of COPD GERD, prostate cancer with previous radiation, and rheumatoid arthritis. He also had a history of non-small cell lung cancer status post right lobectomy and chemotherapy and his last chemotherapy treatment was in November 2015. The patient had a PET scan and July 2016 which in revealed increased size of the mediastinal lymph nodes and uptake and also revealed destructive lesions in the right iliac bone. The patient has been referred to interventional radiology at [facility]. The patient came in on 2016 with complaints of increasing shortness of breath. His chest x-ray revealed an enlargement in the cardiac silhouette and therefore he went for a computed tomography scan of the chest which revealed a large pericardial effusion. He is now status post pericardiostomy. He is awake alert in no acute distress and he is sitting up in his chair. Previously had some issues with A. fib and was on a Cardizem drip and had been switched to oral amiodarone and is now in a normal sinus rhythm. On 10/22/2016 the patient is being reevaluated today on selective care. The patient is alert and awake sitting up in his bed. He states that he didn't get much sleep last night so he is sleepy today but otherwise feels okay. He denies any issues with his breathing. He denies any significant cough or congestion. Objective - Vital Signs Vital signs: Vital Signs Temp 97.2 F L 10/22/16 08:00 Pulse 76 10/22/16 08:46 Resp 18 10/22/16 08:50 BP 123/63 10/22/16 08:00 Pulse Ox 92 L 10/22/16 08:00 Intake & Output 10/21/16 10/22/16 10/22/16 18:59 06:59 18:59 Intake Total 810 480 Output Total 1080 600 Balance -270 -120 Weight 83.1 kg 83 kg Intake: IV 160 120 Sodium Chloride 0.9% 1, 160 120 000 ml @ 20 mls/hr IV . Q24H [facility] Rx#:[id number] Intake, IV Titration 50 Amount Phytonadione 5 mg In 50 Sodium Chloride 0.9% 50 ml @ 100 mls/hr IVPB ONCE STA Rx#:[id number] Oral 600 360 Output: Urine 1080 600 Other: Voiding Method Indwelling Catheter Urinal Urinal ABP, PAP, CO, CI - Last Documented Arterial Blood Pressure 112/55 - Exam GENERAL EXAM: Alert, active, comfortable in no apparent distress. HEAD: Normocephalic. EYES: Normal reaction of pupils, equal size. NOSE: Clear with pink turbinates. THROAT: No erythema or exudates. NECK: No masses, no JVD. CHEST: No chest wall deformity. LUNGS: Clear with some faint expiratory wheezes. CVS: S1 and S2 normal with no audible mumurs, regular rhythm. ABDOMEN: No hepatosplenomegaly, normal bowel sounds, no guarding or rigidity. SPINE: No scoliosis or deformity SKIN: No rashes CENTRAL NERVOUS SYSTEM: No focal deficits, tone is normal in all 4 extremities. - Labs CBC & Chem 7: 10/22/16 05:50 10/22/16 05:50 Labs: Abnormal Lab Results - Last 24 Hours (Table) 10/21/16 10/22/16 10/22/16 Range/Units 21:55 05:50 05:50 WBC 18.4 H (3.8-10.6) k/uL RBC 4.08 L (4.30-5.90) m/uL Hgb 12.6 L (13.0-17.5) gm/dL Neutrophils # (Manual) 15.3 H (1.3-7.7) k/uL PT (9.0-12.0) sec Sodium 135 L (137-145) mmol/L Carbon Dioxide 20 L (22-30) mmol/L Glucose 101 H (74-99) mg/dL POC Glucose (mg/dL) 106 H (75-99) mg/dL Phosphorus 2.3 L (2.5-4.5) mg/dL Total Bilirubin 2.9 H (0.2-1.3) mg/dL AST 132 H (17-59) U/L ALT 996 H (21-72) U/L Alkaline Phosphatase 128 H (38-126) U/L Albumin 3.2 L (3.5-5.0) g/dL 10/22/16 Range/Units 05:50 WBC (3.8-10.6) k/uL RBC (4.30-5.90) m/uL Hgb (13.0-17.5) gm/dL Neutrophils # (Manual) (1.3-7.7) k/uL PT 15.2 H (9.0-12.0) sec Sodium (137-145) mmol/L Carbon Dioxide (22-30) mmol/L Glucose (74-99) mg/dL POC Glucose (mg/dL) (75-99) mg/dL Phosphorus (2.5-4.5) mg/dL Total Bilirubin (0.2-1.3) mg/dL AST (17-59) U/L ALT (21-72) U/L Alkaline Phosphatase (38-126) U/L Albumin (3.5-5.0) g/dL Assessment and Plan Plan: Assessment #1 pericardial effusion status post pericardiostomy, patient had about 100 mL of blood from removed from the pericardial effusion. #2 A. fib with varying ventricular response patient is on oral amiodarone and is currently in a normal sinus rhythm #3 non-small cell lung cancer status post right lobectomy and chemotherapy last treatment in November 2015. Patient is being followed at [facility] for this. #4 COPD #5 rheumatoid arthritis on methotrexate and Plaquenil #6 history of 50+ year pack per day smoking quit in July 2015 #7 elevated liver enzymes suspect shock liver hepatitis screen has been negative Plan The patient is examined and evaluated in the selective care unit today. The patient is currently hemodynamically stable. The patient continues on 4 L of oxygen via nasal cannula. Continuing with his current medication, and antibiotis, including his nebulizer treatment is necessary. The patient should be encouraged to ambulate and use the incentive spirometer as well as cough and deep breathe. The and all labs were reviewed. We will continue to follow the patient and adjust treatment as necessary. I performed an examination of the patient and discussed their mangement with the nurse practitioner. I have reviewed the nurse practitioner's note and agree with the documented findings and plan of care.
[2016-10-22] MEDS: methylPREDNISolone SOD SUCCI 40 MG/ML 1 ML VIAL IV SCH (10:52)
--- NOTE | 2016-10-22 12:48 | P.PN ---
Subjective Patient presented with shortness of breath found to have a pericardial effusion. And is now status post pericardial window. Remains in the ICU. He is extubated. He is having episodes of paroxysmal atrial fibrillation in which she is still on the Cardizem drip at 10 mics an hour. Amiodarone has been switched to oral. Patient lying in bed comfortably. Denies any chest pain. Said improvement in his breathing. Denies any nausea or vomiting. Spent a couple a days since his last bowel movement. But he is passing gas no abdominal pain. Adequate urine output. Objective - Vital Signs Vital signs: Vital Signs Temp 97.8 F 10/22/16 11:25 Pulse 76 10/22/16 11:25 Resp 18 10/22/16 11:25 BP 119/65 10/22/16 11:25 Pulse Ox 92 L 10/22/16 11:25 Intake & Output 10/21/16 10/22/16 10/22/16 18:59 06:59 18:59 Intake Total 810 480 Output Total 1080 600 Balance -270 -120 Weight 83.1 kg 83 kg Intake: IV 160 120 Sodium Chloride 0.9% 1, 160 120 000 ml @ 20 mls/hr IV . Q24H [facility] Rx#:[id number] Intake, IV Titration 50 Amount Phytonadione 5 mg In 50 Sodium Chloride 0.9% 50 ml @ 100 mls/hr IVPB ONCE STA Rx#:[id number] Oral 600 360 Output: Urine 1080 600 Other: Voiding Method Indwelling Catheter Urinal Urinal ABP, PAP, CO, CI - Last Documented Arterial Blood Pressure 112/55 - Exam HEENT head normocephalic and atraumatic Neck is supple no JVD no goiter no lymphadenopathy Chest exam reveals a scattered crackles bilaterally no wheezing Cardiac exam reveals regular heart sounds no murmurs Abdomen is soft nontender no organomegaly Extremity exam reveals no edema no cyanosis or clubbing - Labs CBC & Chem 7: 10/22/16 05:50 10/22/16 05:50 Labs: Abnormal Lab Results - Last 24 Hours (Table) 10/21/16 10/22/16 10/22/16 Range/Units 21:55 05:50 05:50 WBC 18.4 H (3.8-10.6) k/uL RBC 4.08 L (4.30-5.90) m/uL Hgb 12.6 L (13.0-17.5) gm/dL Neutrophils # (Manual) 15.3 H (1.3-7.7) k/uL PT (9.0-12.0) sec Sodium 135 L (137-145) mmol/L Carbon Dioxide 20 L (22-30) mmol/L Glucose 101 H (74-99) mg/dL POC Glucose (mg/dL) 106 H (75-99) mg/dL Phosphorus 2.3 L (2.5-4.5) mg/dL Total Bilirubin 2.9 H (0.2-1.3) mg/dL AST 132 H (17-59) U/L ALT 996 H (21-72) U/L Alkaline Phosphatase 128 H (38-126) U/L Albumin 3.2 L (3.5-5.0) g/dL 10/22/16 Range/Units 05:50 WBC (3.8-10.6) k/uL RBC (4.30-5.90) m/uL Hgb (13.0-17.5) gm/dL Neutrophils # (Manual) (1.3-7.7) k/uL PT 15.2 H (9.0-12.0) sec Sodium (137-145) mmol/L Carbon Dioxide (22-30) mmol/L Glucose (74-99) mg/dL POC Glucose (mg/dL) (75-99) mg/dL Phosphorus (2.5-4.5) mg/dL Total Bilirubin (0.2-1.3) mg/dL AST (17-59) U/L ALT (21-72) U/L Alkaline Phosphatase (38-126) U/L Albumin (3.5-5.0) g/dL Assessment and Plan Plan: 1. Large pericardial effusion, most likely malignant awaiting pathology report , status post pericardial window postoperative day #3. 2. Atrial fibrillation with rapid ventricular response: New onset, cardiology following closely. Currently on Cardizem and oral amiodarone 3. 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 oncology following. Patient received chemotherapy one year ago. 4. Acute liver failure with significant elevation in liver enzymes. Exact etiology unclear to me. Liver ultrasound was a suboptimal study would consider repeat imaging within the next day or 2. Patient remained hemodynamically stable. Possibly attributed to liver congestion. Rule out liver metastasis. Hepatitis panel negative. Liver numbers are trending down. 5. Coagulopathy with elevated INR: Secondary to acute liver failure would continue to monitor INR daily. 6. Right lower lobe pneumonia on IV Levaquin 7. History of rheumatoid arthritis 8. History of prostate cancer with prior radiation therapy 9. Benign prostatic hyperplasia 10. Leukocytosis cause is not clear white blood count up from 11.4-18 patient has been maintained on Levaquin for right lower lobe pneumonia he is not maintained on any steroids at this time will recheck blood culture recheck sputum culture and consult infectious disease DVT prophylaxis subcu SCDs
--- NOTE | 2016-10-22 14:37 | P.PN ---
Subjective Principal diagnosis: Hypoxia This is a 80-year-old gentleman with history of COPD, gastroesophageal reflux disease, prostate cancer with previous radiation, rheumatoid arthritis, history of non-small cell lung CA status post right lobectomy and chemotherapy, a PET scan in July revealed increased size of the mediastinal lymph nodes as well as lesions in the right iliac bone. He presented to the hospital on this occasion with symptoms of shortness of breath. He was found to have a pericardial effusion and underwent pericardiostomy. Patient also has paroxysmal atrial fibrillation. This morning is in normal sinus rhythm but is still in and out of A. fib. He will need to be anticoagulated. We will look into one of the newer agents to see if he has coverage for this. I did speak with cardiothoracic surgery today who did give consent to initiate anticoagulation. Overall the patient feels well, no complaints today. Blood pressure 120/60 heart rate in the 70s respirations 18. White blood cell count 18.4, hemoglobin 12.6, potassium 4.1, BUN 18, creatinine 0.6. AST 132 ALT 996 alk phos 128. Objective - Vital Signs Vital signs: Vital Signs Temp 97.8 F 10/22/16 11:25 Pulse 84 10/22/16 13:35 Resp 18 10/22/16 11:25 BP 119/65 10/22/16 11:25 Pulse Ox 92 L 10/22/16 11:25 Intake & Output 10/21/16 10/22/16 10/22/16 18:59 06:59 18:59 Intake Total 810 480 Output Total 1080 600 Balance -270 -120 Weight 83.1 kg 83 kg Intake: IV 160 120 Sodium Chloride 0.9% 1, 160 120 000 ml @ 20 mls/hr IV . Q[facility]H [facility] Rx#:[id number] Intake, IV Titration 50 Amount Phytonadione 5 mg In 50 Sodium Chloride 0.9% 50 ml @ 100 mls/hr IVPB ONCE STA Rx#:[id number] Oral 600 360 Output: Urine 1080 600 Other: Voiding Method Indwelling Catheter Urinal Urinal ABP, PAP, CO, CI - Last Documented Arterial Blood Pressure 112/55 - Exam PHYSICAL EXAMINATION: HEENT: Head is atraumatic, normocephalic. Pupils equal, round. Neck is supple. There is no elevated jugular venous pressure. HEART EXAMINATION: Heart S1, S2 normal. No murmur or gallop heard. CHEST EXAMINATION: Lungs reveal scattered coarse rhonchi throughout. ABDOMEN: Soft, nontender. Bowel sounds are heard. No organomegaly noted. EXTREMITIES: 2+ peripheral pulses with no evidence of peripheral edema and no calf tenderness noted. NEUROLOGIC patient is awake, alert and oriented -3. . - Labs CBC & Chem 7: 10/22/16 05:50 10/22/16 05:50 Labs: Abnormal Lab Results - Last 24 Hours (Table) 10/21/16 10/22/16 10/22/16 Range/Units 21:55 05:50 05:50 WBC 18.4 H (3.8-10.6) k/uL RBC 4.08 L (4.30-5.90) m/uL Hgb 12.6 L (13.0-17.5) gm/dL Neutrophils # (Manual) 15.3 H (1.3-7.7) k/uL PT (9.0-12.0) sec Sodium 135 L (137-145) mmol/L Carbon Dioxide 20 L (22-30) mmol/L Glucose 101 H (74-99) mg/dL POC Glucose (mg/dL) 106 H (75-99) mg/dL Phosphorus 2.3 L (2.5-4.5) mg/dL Total Bilirubin 2.9 H (0.2-1.3) mg/dL AST 132 H (17-59) U/L ALT 996 H (21-72) U/L Alkaline Phosphatase 128 H (38-126) U/L Albumin 3.2 L (3.5-5.0) g/dL 10/22/16 Range/Units 05:50 WBC (3.8-10.6) k/uL RBC (4.30-5.90) m/uL Hgb (13.0-17.5) gm/dL Neutrophils # (Manual) (1.3-7.7) k/uL PT 15.2 H (9.0-12.0) sec Sodium (137-145) mmol/L Carbon Dioxide (22-30) mmol/L Glucose (74-99) mg/dL POC Glucose (mg/dL) (75-99) mg/dL Phosphorus (2.5-4.5) mg/dL Total Bilirubin (0.2-1.3) mg/dL AST (17-59) U/L ALT (21-72) U/L Alkaline Phosphatase (38-126) U/L Albumin (3.5-5.0) g/dL Assessment and Plan (1) H/O pericardiotomy Status: Acute (2) Non-small cell cancer of right lung Status: Acute (3) COPD (chronic obstructive pulmonary disease) Status: Acute (4) Prostate CA Status: Acute (5) Rheumatoid arthritis Status: Acute (6) Hx of nicotine dependence Status: Acute (7) Elevated liver enzymes Status: Acute (8) Pericardial effusion Status: Acute Plan: From cardiology's perspective, we will check to see if the patient has coverage for one of the newer anticoagulants, if so we will initiate that today. Continue other current medications. DNP note has been reviewed, I agree with a documented findings and plan of care. Patient was seen and examined.
--- NOTE | 2016-10-22 15:02 | P.PN ---
Subjective Principal diagnosis: Pericardial effusion S/P POD #4 pericardial window. Pt currently sitting up in bed, in no apparent distress, eating breakfast. Objective - Vital Signs Vital signs: Vital Signs Temp 96.5 F L 10/22/16 04:00 Pulse 78 10/21/16 18:00 Resp 22 10/22/16 04:00 BP 118/66 10/22/16 04:00 Pulse Ox 95 10/22/16 04:00 Intake & Output 10/21/16 10/22/16 10/22/16 18:59 06:59 18:59 Intake Total 810 480 Output Total 1080 600 Balance -270 -120 Weight 83.1 kg 83 kg Intake: IV 160 120 Sodium Chloride 0.9% 1, 160 120 000 ml @ 20 mls/hr IV . Q24H [facility] Rx#:[id number] Intake, IV Titration 50 Amount Phytonadione 5 mg In 50 Sodium Chloride 0.9% 50 ml @ 100 mls/hr IVPB ONCE [facility] Rx#:[id number] Oral 600 360 Output: Urine 1080 600 Other: Voiding Method Indwelling Catheter Urinal ABP, PAP, CO, CI - Last Documented Arterial Blood Pressure 112/55 - Constitutional General appearance: Present: cooperative, no acute distress - Respiratory Details: Lungs sounds diminished bilaterally. Respirations even, nonlabored. Currently on 2 L nasal cannula. Able to achieve 1000 mL on his incentive spirometry. - Cardiovascular Details: S1, S2 present. Regular rate and rhythm, sinus rhythm on telemetry. SCDs in place. No edema present. - Gastrointestinal Gastrointestinal Comment(s): Abdomen soft, nontender, nondistended. Active bowel sounds 4 quadrants. Tolerating diet. - Genitourinary Genitourinary Comment(s): Voiding clear, yellow urine per urinal. - Integumentary Integumentary Comment(s): Anterior chest incision covered with dry intact silver dressing. - Musculoskeletal Musculoskeletal: Present: gait normal - Psychiatric Psychiatric: Present: A&O x's 3, appropriate affect, intact judgment & insight - Allied health notes Allied health notes reviewed: nursing - Labs CBC & Chem 7: 10/22/16 05:50 10/22/16 05:50 Labs: Abnormal Lab Results - Last 24 Hours (Table) 10/21/16 10/22/16 10/22/16 Range/Units 21:55 05:50 05:50 WBC 18.4 H (3.8-10.6) k/uL RBC 4.08 L (4.30-5.90) m/uL Hgb 12.6 L (13.0-17.5) gm/dL PT (9.0-12.0) sec Sodium 135 L (137-145) mmol/L Carbon Dioxide 20 L (22-30) mmol/L Glucose 101 H (74-99) mg/dL POC Glucose (mg/dL) 106 H (75-99) mg/dL Phosphorus 2.3 L (2.5-4.5) mg/dL Total Bilirubin 2.9 H (0.2-1.3) mg/dL AST 132 H (17-59) U/L ALT 996 H (21-72) U/L Alkaline Phosphatase 128 H (38-126) U/L Albumin 3.2 L (3.5-5.0) g/dL 10/22/16 Range/Units 05:50 WBC (3.8-10.6) k/uL RBC (4.30-5.90) m/uL Hgb (13.0-17.5) gm/dL PT 15.2 H (9.0-12.0) sec Sodium (137-145) mmol/L Carbon Dioxide (22-30) mmol/L Glucose (74-99) mg/dL POC Glucose (mg/dL) (75-99) mg/dL Phosphorus (2.5-4.5) mg/dL Total Bilirubin (0.2-1.3) mg/dL AST (17-59) U/L ALT (21-72) U/L Alkaline Phosphatase (38-126) U/L Albumin (3.5-5.0) g/dL Assessment and Plan (1) Pericardial effusion Status: Acute (2) Cardiac tamponade Status: Acute Plan: 1. Management of anti-arrythmics/anticoagulation per cardiology. 2. Encourage IS use. 3. your medical management. 4. Stressed importance of need to wear SCDs for DVT prophylaxis. 5. Will follow patient while in hospital. Time with Patient: Greater than 30
[2016-10-22] MEDS: SODIUM CHLORIDE 0.9% 1,000 ML IV SCH (15:21)
[2016-10-22] MEDS: LEVOFLOXACIN 750MG-D5W PMX 750 MG in DEXTROSE/WATER 1 150ML.BAG IVPB SCH (17:00)
--- NOTE | 2016-10-22 22:31 | P.CONS ---
History of Present Illness - Reason for Consult Consult date: 10/22/16 - Chief Complaint SOB - History of Present Illness 80 year old male with a history of lung carcinoma last year with lung resection of the right upper lobe. 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 He was treated with limited chemotherapy because of poor tolerance. And was being monitored. The patient then became quite short of breath. He presented to the emergency center. There because of his history of cancer a CTA was performed and there was evidence of a large pericardial effusion. 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 He is postoperative feeling considerably better. His water when he gets to go home. He is however wearing oxygen. Still has some shortness of breath. He then developed a significant leukocytosis and for that the infectious diseases consultation was requested. Review of Systems HEENT:Denies headache or acute visual change. Denies sinus or mouth discomforts. Denies neck stiffness or pain. Denies significant oral cavity pain. Denies difficulty on swallowing. Lungs: As per the HPI, positive cough, no hemoptysis positive shortness of breath Cardiovascular: Denies significant chest pain, chest wall pain prior to admission and doing relatively well at this time status post this procedure. orthopnea or syncope, deftly had dyspnea on exertion before coming in. Gastrointestinal:Denies nausea, vomiting, diarrhea, constipation, hematemesis, melena, hematochezia. No no significant change of bowel habit noticed. Musculoskeletal: denies significant myalgias or arthralgias. No new joint swelling. Denies new back pain. Skin: Denies new rash or lesions. No new ulcers or wounds are related.. Neuro: Denies headache or visual change. Denies any new onset weakness or difficulty with ambulation. Denies falls or seizures. Psychiatric:Denies anxiety or depression. 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 Past Anesthesia/Blood Transfusion Reactions: No Reported Reaction Past Psychological History: No Psychological Hx Reported Additional Psychological History / Comment(s): PT LIVES WITH DAUGHTER FREDY AND HER IVONNE, USES A CANE WHEN UP. NO OUTSIDE SERVICES. 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 . Has a lady friend that he travels with, has been in the [employer]. Tobacco smoker from age 15 until his diagnosis of cancer in July 2015. No animal exposures. No experience Smoking Status: Former smoker Past Alcohol Use History: None Reported Additional Past Alcohol Use History / Comment(s): STARTED SMOKING AT AGE 15 , quit smoking 07/2015, HAD BEEN SMOKING 1 PPD Past Drug Use History: None Reported - Past Family History Mother History Unknown: Yes Family Medical History: No Reported History Additional Family Medical History / Comment(s): Adopted Medications and Allergies Home Medications and Allergies Comment(s): Current Medications Acetaminophen (Tylenol Tab) 500 mg PO Q4H PRN PRN Reason: Pain Amiodarone HCl (Cordarone) 400 mg PO BID [facility] Last Admin: 10/22/16 21:59 Dose: 400 mg Diltiazem HCl (Cardizem Oral) 30 mg PO TID [facility] Last Admin: 10/22/16 21:59 Dose: 30 mg Levofloxacin 750 mg/ IV (Solution) 150 mls @ 100 mls/hr IVPB Q24H [facility] Stop: 10/22/16 23:59 Last Admin: 10/22/16 17:00 Dose: 100 mls/hr Sodium Chloride (Saline 0.9%) 1,000 mls @ 20 mls/hr IV .Q24H [facility] Last Admin: 10/22/16 15:21 Dose: Not Given Insulin Human Lispro (Humalog) 0 unit SQ ACHS [facility] PRN Reason: Protocol Last Admin: 10/22/16 21:59 Dose: Not Given Ipratropium Cutler (Atrovent Nebulized) 0.5 mg INHALATION RT-TID [facility] Last Admin: 10/22/16 20:26 Dose: 0.5 mg Levalbuterol HCl (Xopenex Nebulized (Conc)) 1.25 mg INHALATION RT-TID [facility] Last Admin: 10/22/16 20:26 Dose: 1.25 mg Levofloxacin (Levaquin) 750 mg PO Q24H [facility] Stop: 10/30/16 14:01 Miscellaneous Information (Pneumonia Protocol Utilized) 1 each PO ONCE PRN PRN Reason: Per Protocol Miscellaneous Information (Magnesium Per Protocol) 1 each MISCELLANE DAILY PRN ; Protocol PRN Reason: Per Protocol Miscellaneous Information (Potassium Per Protocol) 1 each MISCELLANE DAILY PRN ; Protocol PRN Reason: Per Protocol Morphine Sulfate (Morphine Sulfate (Inj)) 2 mg IVP Q2H PRN PRN Reason: Severe Pain Last Admin: 10/20/16 05:09 Dose: 2 mg Pantoprazole Sodium (Protonix) 40 mg PO -BRKFST [facility] Home Medications Medication Instructions Recorded Confirmed Type Omeprazole 20 mg PO DAILY 12/30/15 10/17/16 History Tamsulosin HCl [Flomax] 0.4 mg PO DAILY 12/30/15 10/17/16 History ALPRAZolam [Xanax] 0.5 mg PO DAILY PRN 10/17/16 10/17/16 History Acetaminophen [Tylenol] 500 mg PO Q4-6H PRN 10/17/16 10/17/16 History Albuterol Inhaler [Ventolin Hfa 2 puff INHALATION RT-Q4H PRN 10/17/16 10/17/16 History Inhaler] Folic Acid 1 mg PO SUMOTUWEFRSA 10/17/16 10/17/16 History Hydroxychloroquine Sulfate 200 mg PO BID 10/17/16 10/17/16 History [Plaquenil] Methotrexate Sodium (Pf) 25 mg INJ TH 10/17/16 10/17/16 History [Methotrexate 25 mg/ml Vial] Multivitamins, Thera [Multivitamin] 1 tab PO DAILY 10/17/16 10/17/16 History Allergies Allergy/AdvReac Type Severity Reaction Status Date / Time No Known Allergies Allergy Verified 10/17/16 12:57 Physical Exam Vitals: Vital Signs Temp Pulse Pulse Pulse Resp BP BP 10/22/16 20:31 80 10/22/16 15:45 97.0 F L 80 18 132/71 10/22/16 13:35 84 10/22/16 13:24 80 10/22/16 11:25 97.8 F 76 18 119/65 10/22/16 08:50 18 10/22/16 08:46 76 10/22/16 08:36 76 10/22/16 08:30 87 86 18 10/22/16 08:00 97.2 F L 84 18 123/63 10/22/16 04:00 96.5 F L 22 118/66 10/22/16 00:00 96.5 F L 22 134/63 Pulse Ox 10/22/16 20:31 10/22/16 15:45 93 L 10/22/16 13:35 10/22/16 13:24 10/22/16 11:25 92 L 10/22/16 08:50 10/22/16 08:46 10/22/16 08:36 10/22/16 08:30 10/22/16 08:00 92 L 10/22/16 04:00 95 10/22/16 00:00 93 L Intake and Output 10/22/16 10/22/16 10/22/16 06:59 14:59 22:59 Intake Total 120 654 Output Total 600 480 575 Balance -480 174 -575 Intake: IV 120 Sodium Chloride 0.9% 1, 120 000 ml @ 20 mls/hr IV . Q24H [facility] Rx#:[id number] Oral 654 Output: Urine 600 480 575 Other: Voiding Method Urinal Urinal # Voids 1 # Bowel Movements 0 0 Weight 83 kg Very pleasant 80-year-old male who is fortunately quite comfortable at this point in time. Mediastinal tube was removed. Shortness of breath has not recovered to baseline but feels better than admission. Looking forward to going home soon. Denies fevers, chills or rigors HEENT: Anicteric conjunctiva are pink and moist nasal mucosa grossly intact without significant lesions, there is no thrush. Poor dentition Neck: The neck is supple without significant lymphadenopathy or thyromegaly. Lungs: Symmetrical air entry. Few crackles are heard at the bilateral bases. Few expiratory wheezes are scattered. No bronchial sounds. No changes of egophony. Heart: Irregular with a soft S4 There is no significant murmur click or rub, PMI was nondisplaced. Abdomen: Positive bowel sounds soft and nontender without palpable masses or organomegaly. There was no guarding or rebound. Extremities: The upper extremities have excellent pulses they are symmetric, no significant petechiae or telangiectasia. No splinter hemorrhages were noted. The lower extremities are free from significant edema. The peripheral pulses were 2+ and symmetric. Neuro: Awake alert oriented to person place and time. There are no acute new gross focal sensory motor deficits. Skin the surgical site anterior chest wall is without significant drainage no erythema Results CBC & Chem 7: 10/22/16 05:50 10/22/16 05:50 Labs: Abnormal Lab Results - Last 24 Hours (Table) 10/21/16 10/22/16 10/22/16 Range/Units 21:55 05:50 05:50 WBC 18.4 H (3.8-10.6) k/uL RBC 4.08 L (4.30-5.90) m/uL Hgb 12.6 L (13.0-17.5) gm/dL Neutrophils # (Manual) 15.3 H (1.3-7.7) k/uL PT (9.0-12.0) sec Sodium 135 L (137-145) mmol/L Carbon Dioxide 20 L (22-30) mmol/L Glucose 101 H (74-99) mg/dL POC Glucose (mg/dL) 106 H (75-99) mg/dL Phosphorus 2.3 L (2.5-4.5) mg/dL Total Bilirubin 2.9 H (0.2-1.3) mg/dL AST 132 H (17-59) U/L ALT 996 H (21-72) U/L Alkaline Phosphatase 128 H (38-126) U/L Albumin 3.2 L (3.5-5.0) g/dL 10/22/16 Range/Units 05:50 WBC (3.8-10.6) k/uL RBC (4.30-5.90) m/uL Hgb (13.0-17.5) gm/dL Neutrophils # (Manual) (1.3-7.7) k/uL PT 15.2 H (9.0-12.0) sec Sodium (137-145) mmol/L Carbon Dioxide (22-30) mmol/L Glucose (74-99) mg/dL POC Glucose (mg/dL) (75-99) mg/dL Phosphorus (2.5-4.5) mg/dL Total Bilirubin (0.2-1.3) mg/dL AST (17-59) U/L ALT (21-72) U/L Alkaline Phosphatase (38-126) U/L Albumin (3.5-5.0) g/dL Laboratory Results WBC 18.4 k/uL (3.8-10.6) H 10/22/16 05:50 RBC 4.08 m/uL (4.30-5.90) L 10/22/16 05:50 Hgb 12.6 gm/dL (13.0-17.5) L 10/22/16 05:50 Hct 40.4 % (39.0-53.0) 10/22/16 05:50 MCV 99.0 fL (80.0-100.0) 10/22/16 05:50 MCH 31.0 pg (25.0-35.0) 10/22/16 05:50 MCHC 31.3 g/dL (31.0-37.0) 10/22/16 05:50 RDW 15.5 % (11.5-15.5) 10/22/16 05:50 Plt Count 210 k/uL (150-450) 10/22/16 05:50 Neutrophils % 87 % 10/21/16 05:20 Neutrophils % (Manual) 83.0 % 10/22/16 05:50 Lymphocytes % 7 % 10/21/16 05:20 Lymphocytes % (Manual) 7.5 % 10/22/16 05:50 Monocytes % 3 % 10/21/16 05:20 Monocytes % (Manual) 3.5 % 10/22/16 05:50 Eosinophils % 2 % 10/21/16 05:20 Eosinophils % (Manual) 3.0 % 10/22/16 05:50 Basophils % 0 % 10/21/16 05:20 Metamyelocytes % 1.5 % 10/22/16 05:50 Myelocytes % 1.5 % 10/22/16 05:50 Neutrophils # 9.9 k/uL (1.3-7.7) H 10/21/16 05:20 Neutrophils # (Manual) 15.3 k/uL (1.3-7.7) H 10/22/16 05:50 Lymphocytes # 0.8 k/uL (1.0-4.8) L 10/21/16 05:20 Lymphocytes # (Manual) 1.4 k/uL (1.0-4.8) 10/22/16 05:50 Monocytes # 0.3 k/uL (0-1.0) 10/21/16 05:20 Monocytes # (Manual) 0.6 k/uL (0-1.0) 10/22/16 05:50 Eosinophils # 0.2 k/uL (0-0.7) 10/21/16 05:20 Eosinophils # (Manual) 0.6 k/uL (0-0.7) 10/22/16 05:50 Basophils # 0.0 k/uL (0-0.2) 10/21/16 05:20 Nucleated RBCs 0 /100 WBC (0-0) 10/22/16 05:50 Toxic Granulation Present 10/22/16 05:50 Polychromasia Present 10/22/16 05:50 Hypochromasia Slight 10/22/16 05:50 Poikilocytosis (manual Present 10/22/16 05:50 Anisocytosis (manual) Present 10/22/16 05:50 Macrocytosis Slight 10/22/16 05:50 PT 15.2 sec (9.0-12.0) H 10/22/16 05:50 INR 1.6 (<1.1) 10/22/16 05:50 APTT 24.2 sec (22.0-30.0) 10/18/16 13:06 Sample Site [place] 10/18/16 15:39 ABG pH 7.45 (7.35-7.45) 10/18/16 15:39 ABG pCO2 30 mmHg (35-45) L 10/18/16 15:39 ABG pO2 134 mmHg (83-108) H 10/18/16 15:39 ABG HCO3 20 mmol/L (21-25) L 10/18/16 15:39 ABG Total CO2 21 mmol/L (19-24) 10/18/16 15:39 ABG O2 Saturation 99.0 % (94-97) H 10/18/16 15:39 ABG Base Excess -2.9 mmol/L 10/18/16 15:39 ABG Hematocrit 41 % (34.0-46.0) 10/18/16 11:07 FiO2 50 % 10/18/16 15:39 Sodium 135 mmol/L (137-145) L 10/22/16 05:50 Potassium 4.1 mmol/L (3.5-5.1) 10/22/16 05:50 Chloride 101 mmol/L (98-107) 10/22/16 05:50 Carbon Dioxide 20 mmol/L (22-30) L 10/22/16 05:50 Anion Gap 14 mmol/L 10/22/16 05:50 BUN 18 mg/dL (9-20) 10/22/16 05:50 Creatinine 0.69 mg/dL (0.66-1.25) 10/22/16 05:50 Est GFR (MDRD) Af Amer >60 (>60 ml/min/1.73 sqM) 10/22/16 05:50 Est GFR (MDRD) Non-Af >60 (>60 ml/min/1.73 sqM) 10/22/16 05:50 Glucose 101 mg/dL (74-99) H 10/22/16 05:50 POC Glucose (mg/dL) 95 mg/dL (75-99) 10/22/16 06:14 POC Glu [employer]/T[employer] Naila Villegas 10/22/16 06:[address] Glu mg/dL 117 mg/dL 10/17/16 12:34 Hemoglobin A1c 5.7 % (4.2-6.1) 10/17/16 12:34 Calcium 8.4 mg/dL (8.4-10.2) 10/22/16 05:50 Ionized Calcium Billie 4.7 mg/dL (4.5-5.3) 10/19/16 04:50 Phosphorus 2.3 mg/dL (2.5-4.5) L 10/22/16 05:50 Magnesium 1.9 mg/dL (1.6-2.3) 10/22/16 05:50 Total Bilirubin 2.9 mg/dL (0.2-1.3) H 10/22/16 05:50 Conjugated Bilirubin 0.0 mg/dL (0.0-0.3) 10/20/16 05:06 Unconjugated Bilirubin 1.2 mg/dL (0.0-1.1) H 10/20/16 05:06 Delta Bilirubin 1.1 mg/dL (0.0-0.2) H 10/20/16 05:06 AST 132 U/L (17-59) H 10/22/16 05:50 ALT 996 U/L (21-72) H 10/22/16 05:50 Alkaline Phosphatase 128 U/L (38-126) H 10/22/16 05:50 Total Creatine Kinase 54 U/L (55-170) L 10/17/16 12:34 CK-MB (CK-2) 0.7 ng/mL (0.0-2.4) 10/17/16 12:34 CK-MB (CK-2) Rel Index 1.3 10/17/16 12:34 Troponin I <0.012 ng/mL (0.000-0.034) 10/17/16 12:34 NT-Pro-B Natriuret Pep 560 pg/mL 10/17/16 12:34 Total Protein 6.4 g/dL (6.3-8.2) 10/22/16 05:50 Albumin 3.2 g/dL (3.5-5.0) L 10/22/16 05:50 Fluid Source Pericardial 10/18/16 11:35 Fluid Color Red 10/18/16 11:35 Fluid Appearance Bloody 10/18/16 11:35 Fluid RBC 287879 /uL 10/18/16 11:35 Fluid Nucleated Cells 4395 /uL 10/18/16 11:35 Fluid Polynuclear WBCs 67 % 10/18/16 11:35 Fluid Mononuclear WBCs 33 % 10/18/16 11:35 Fluid Comment 10/18/16 11:35 Hep Bs Antigen Negative 10/20/16 05:06 Hep C IgG Ab Negative (Negative) 10/20/16 05:06 Blood Type B Positive 10/17/16 22:05 Blood Type Confirm B Positive 10/17/16 12:34 Blood Type Recheck CABO Indicated 10/17/16 22:05 Antibody Screen NEGATIVE 10/17/16 22:05 Transfuse Plasma 10/18/16 10/18/16 08:33 Spec Expiration Date 10/20/2016230410/17/16 22:05 Microbiology 10/17/16 12:20 Blood Blood Culture - Preliminary No Growth after 120 hours 10/17/16 12:34 Blood Blood Culture - Preliminary No Growth after 120 hours Assessment and Plan (1) Leukocytosis Narrative/Plan: Very pleasant 80-year-old male presents to Hospital was having shortness of breath. With his history of right-sided lung carcinoma with partial pneumonectomy he underwent CT scanning. No evidence of a pulmonary embolus was found however a large pericardial effusion was noted. He was taken to the operating room and this has been drained. He is now feeling considerably better and the postoperative timeframe. She'll let us of breath is near his baseline. He is at having significant pain. He is wearing oxygen. He is inquiring if he will have that at home. At this time he was noticed evidence of any increase in his leukocyte count. Postoperatively it was around 15 and peaked at 18.4 today. It is noted that he did receive Solu-Medrol 40 mg dose. This likely was likely responsible for some of the increase of his current leukocytosis. He has multiple current factors that will also result in leukocytosis including his active cancer, recent surgery, and the significant stress of his current respiratory difficulties. He does not appear to have a significant pneumonia, and does not appear to have other significant source of infection at this time. Leukocytosis appears to be reactive in nature. Would limit his course of levofloxacin to 5-7 days for exacerbation of his underlying COPD. Oncology follow-up is in process. Status: Acute (2) Pericardial effusion Status: Acute (3) Non-small cell cancer of right lung Status: Acute
[2016-10-22] MEDS ORDERED: PHYTONADIONE 2 MG in SODIUM CHLORIDE 0.9% 50 ML IVPB STA (23:11)
--- NOTE | 2016-10-22 23:11 | P.PN ---
Subjective The pt has been transferred out of the ICU. Breathing is improved with less O2 requirement Objective - Vital Signs Vital signs: Vital Signs Temp 97.6 F 10/22/16 20:00 Pulse 80 10/22/16 20:31 Resp 18 10/22/16 20:00 BP 104/53 10/22/16 20:00 Pulse Ox 94 L 10/22/16 20:00 Intake & Output 10/22/16 10/22/16 10/23/16 06:59 18:59 06:59 Intake Total 480 654 Output Total 600 780 275 Balance -120 -126 -275 Weight 83 kg Intake: IV 120 Sodium Chloride 0.9% 1, 120 000 ml @ 20 mls/hr IV . Q24H [facility] Rx#:[id number] Oral 360 654 Output: Urine 600 780 275 Other: Voiding Method Urinal Urinal Urinal # Voids 1 # Bowel Movements 0 ABP, PAP, CO, CI - Last Documented Arterial Blood Pressure 112/55 - Constitutional General appearance: Present: no acute distress - EENT Eyes: Present: EOMI, PERRLA ENT: Present: hearing grossly normal, normal oropharynx - Respiratory Respiratory: bilateral: diminished - Cardiovascular Rhythm: regular Heart sounds: normal: S1, S2 - Gastrointestinal General gastrointestinal: Present: normal bowel sounds, soft - Integumentary Integumentary: Present: normal - Musculoskeletal Musculoskeletal: Present: generalized weakness, strength equal bilaterally - Psychiatric Psychiatric: Present: A&O x's 3, appropriate affect - Labs CBC & Chem 7: 10/22/16 05:50 10/22/16 05:50 Labs: Abnormal Lab Results - Last 24 Hours (Table) 10/22/16 10/22/16 10/22/16 Range/Units 05:50 05:50 05:50 WBC 18.4 H (3.8-10.6) k/uL RBC 4.08 L (4.30-5.90) m/uL Hgb 12.6 L (13.0-17.5) gm/dL Neutrophils # (Manual) 15.3 H (1.3-7.7) k/uL PT 15.2 H (9.0-12.0) sec Sodium 135 L (137-145) mmol/L Carbon Dioxide 20 L (22-30) mmol/L Glucose 101 H (74-99) mg/dL Phosphorus 2.3 L (2.5-4.5) mg/dL Total Bilirubin 2.9 H (0.2-1.3) mg/dL AST 132 H (17-59) U/L ALT 996 H (21-72) U/L Alkaline Phosphatase 128 H (38-126) U/L Albumin 3.2 L (3.5-5.0) g/dL Assessment and Plan (1) Non-small cell lung cancer (NSCLC) Narrative/Plan: The cytology on the pericardial effusion confirms malignancy, likely adenoca, though final stains are pending. The results were d/w the pt. This provides tissue confirmation of stage IV disease. Assuming adenoca is confirmed, EGFR/ ROS1/ALK/PD1 will be ordered. Pt will be followed up in the office, and treatment recommendations made according to results of the above, and his PS Status: Acute (2) Coagulopathy Narrative/Plan: Improved with Vit K, and decreased liver congestion. Repeat vit K Status: Acute
[2016-10-23 07:23] LABS: INR 1.6 (<1.1); Prothrombin Time 15.2 sec (9.0-12.0)
[2016-10-23 07:25] LABS: Basophils % (A) 0 %; CH 30.7; CHCM 32.6; Eosinophils # (A) 0.3 k/uL (0-0.7); Eosinophils % (A) 2 %; HCT 36.4 % (39.0-53.0); HGB 11.9 gm/dL (13.0-17.5); Hypochromasia Slight; Luc # (Auto) 0.24; Luc % (Auto) 1; Lymphocytes # (A) 0.9 k/uL (1.0-4.8); Lymphocytes % (A) 5 %; MCH 30.9 pg (25.0-35.0); MCHC 32.7 g/dL (31.0-37.0); MCV 94.4 fL (80.0-100.0); Mean Platelet Volume 7.6; Monocytes # (A) 0.6 k/uL (0-1.0); Monocytes % (A) 4 %; Neutrophils # (A) 14.4 k/uL (1.3-7.7); Neutrophils % (A) 88 %; RBC 3.85 m/uL (4.30-5.90); RDW 15.3 % (11.5-15.5); WBC 16.4 k/uL (3.8-10.6); WBC (Perox) 16.14
[2016-10-23 07:40] LABS: ALT 640 U/L (21-72); AST 76 U/L (17-59); Alkaline Phosphatase 105 U/L (38-126); Anion Gap 11 mmol/L; Blood Urea Nitrogen 13 mg/dL (9-20); Calcium 7.8 mg/dL (8.4-10.2); Carbon Dioxide 22 mmol/L (22-30); Chloride 100 mmol/L (98-107); Glucose 102 mg/dL (74-99); Magnesium 1.7 mg/dL (1.6-2.3); Non-African American GFR(MDRD) >60 (>60 ml/min/1.73 sqM); Phosphorous 2.6 mg/dL (2.5-4.5); Potassium 3.9 mmol/L (3.5-5.1); Sodium 133 mmol/L (137-145); Total Bilirubin 2.5 mg/dL (0.2-1.3); Total Protein 5.6 g/dL (6.3-8.2)
--- NOTE | 2016-10-23 08:00 | P.PN ---
Subjective Principal diagnosis: Pericardial effusion S/P POD #5 pericardial window. Pt currently sitting up in bed, in no apparent distress, eating breakfast. Objective - Vital Signs Vital signs: Vital Signs Temp 96.8 F L 10/23/16 04:00 Pulse 83 10/23/16 04:00 Resp 18 10/23/16 04:00 BP 149/70 10/23/16 04:00 Pulse Ox 93 L 10/23/16 04:00 Intake & Output 10/22/16 10/23/16 10/23/16 18:59 06:59 18:59 Intake Total 654 150 Output Total 780 1150 Balance -126 -1000 Weight 82.1 kg Intake: Intake, IV Titration 50 Amount Phytonadione 2 mg In 50 Sodium Chloride 0.9% 50 ml @ 100 mls/hr IVPB [facility] Rx#:[id number] Oral 654 100 Output: Urine 780 1150 Other: Voiding Method Urinal Urinal # Voids 1 # Bowel Movements 0 ABP, PAP, CO, CI - Last Documented Arterial Blood Pressure 112/55 - Constitutional General appearance: Present: cooperative, no acute distress - Respiratory Details: Lungs sounds diminished bilaterally. Respirations even, nonlabored. Currently on 3 L nasal cannula. Able to achieve 750 mL on his incentive spirometry. - Cardiovascular Details: S1, S2 present. Regular rate and rhythm, normal sinus rhythm on telemetry. No edema present. - Gastrointestinal Gastrointestinal Comment(s): Abdomen soft, nontender, nondistended. Active bowel sounds 4 quadrants. Tolerating diet. - Genitourinary Genitourinary Comment(s): Voiding clear yellow urine per urinal. - Integumentary Integumentary Comment(s): Anterior chest incision covered by dry intact silver dressing. - Musculoskeletal Musculoskeletal: Present: gait normal - Psychiatric Psychiatric: Present: A&O x's 3, appropriate affect, intact judgment & insight - Allied health notes Allied health notes reviewed: nursing - Labs CBC & Chem 7: 10/23/16 06:52 10/23/16 06:52 Labs: Abnormal Lab Results - Last 24 Hours (Table) 10/22/16 10/23/16 10/23/16 Range/Units 05:50 06:52 06:52 WBC 18.4 H 16.4 H (3.8-10.6) k/uL RBC 4.08 L 3.85 L (4.30-5.90) m/uL Hgb 12.6 L 11.9 L (13.0-17.5) gm/dL Hct 36.4 L (39.0-53.0) % Neutrophils # 14.4 H (1.3-7.7) k/uL Neutrophils # (Manual) 15.3 H (1.3-7.7) k/uL Lymphocytes # 0.9 L (1.0-4.8) k/uL PT 15.2 H (9.0-12.0) sec Sodium (137-145) mmol/L Creatinine (0.66-1.25) mg/dL Glucose (74-99) mg/dL Calcium (8.4-10.2) mg/dL Total Bilirubin (0.2-1.3) mg/dL AST (17-59) U/L ALT (21-72) U/L Total Protein (6.3-8.2) g/dL Albumin (3.5-5.0) g/dL 10/23/16 Range/Units 06:52 WBC (3.8-10.6) k/uL RBC (4.30-5.90) m/uL Hgb (13.0-17.5) gm/dL Hct (39.0-53.0) % Neutrophils # (1.3-7.7) k/uL Neutrophils # (Manual) (1.3-7.7) k/uL Lymphocytes # (1.0-4.8) k/uL PT (9.0-12.0) sec Sodium 133 L (137-145) mmol/L Creatinine 0.60 L (0.66-1.25) mg/dL Glucose 102 H (74-99) mg/dL Calcium 7.8 L (8.4-10.2) mg/dL Total Bilirubin 2.5 H (0.2-1.3) mg/dL AST 76 H (17-59) U/L ALT 640 H (21-72) U/L Total Protein 5.6 L (6.3-8.2) g/dL Albumin 2.8 L (3.5-5.0) g/dL Assessment and Plan (1) Pericardial effusion Status: Acute (2) Cardiac tamponade Status: Acute Plan: 1. Management of anti-arrythmics/anticoagulation per cardiology. Okay to start anticoagulation from our standpoint. 2. Encourage IS use. 3. your medical management. 4. Stressed importance of need to wear SCDs for DVT prophylaxis. 5. Will continue to follow patient while in hospital. Time with Patient: Greater than 30
[2016-10-23] MEDS: DILTIAZEM ORAL 30 MG TAB PO SCH ×3 (08:22→21:17)
[2016-10-23] MEDS: AMIODARONE 200 MG TAB PO SCH ×2 (08:22→21:17)
[2016-10-23] MEDS: PANTOPRAZOLE 40 MG TABLET PO SCH (08:22)
[2016-10-23] MEDS: IPRATROPIUM 0.5 MG/2.5 ML NEBU INHALATION SCH ×3 (08:54→20:04)
[2016-10-23] MEDS: LEVALBUTEROL NEB (CONC) 1.25 MG/0.5 ML AMP INHALATION SCH ×3 (08:54→20:04)
--- NOTE | 2016-10-23 09:51 | P.PN ---
Subjective Principal diagnosis: Pericardial effusion Interval history: Patient is being reevaluated and examined today for pulmonary services. The patient is being seen on selective care he is alert awake and sitting up in his bed. He is much more rested today than yesterday. He denies any significant issues with his breathing, denies any cough or congestion. Patient has been using his incentive spirometer and is able to pull volumes of 1250. The patient had no acute events during the night. Objective - Vital Signs Vital signs: Vital Signs Temp 97.2 F L 10/23/16 08:10 Pulse 84 10/23/16 09:07 Resp 18 10/23/16 08:10 BP 139/62 10/23/16 08:10 Pulse Ox 96 10/23/16 08:54 Intake & Output 10/22/16 10/23/16 10/23/16 18:59 06:59 18:59 Intake Total 654 150 Output Total 780 1150 Balance -126 -1000 Weight 82.1 kg Intake: Intake, IV Titration 50 Amount Phytonadione 2 mg In 50 Sodium Chloride 0.9% 50 ml @ 100 mls/hr IVPB ONCE STA Rx#:[id number] Oral 654 100 Output: Urine 780 1150 Other: Voiding Method Urinal Urinal # Voids 1 1 # Bowel Movements 0 ABP, PAP, CO, CI - Last Documented Arterial Blood Pressure 112/55 - Exam GENERAL EXAM: Alert, active, comfortable in no apparent distress. HEAD: Normocephalic. EYES: Normal reaction of pupils, equal size. NOSE: Clear with pink turbinates. THROAT: No erythema or exudates. NECK: No masses, no JVD. CHEST: No chest wall deformity. LUNGS: Clear with some faint expiratory wheezes. CVS: S1 and S2 normal with no audible mumurs, regular rhythm. ABDOMEN: No hepatosplenomegaly, normal bowel sounds, no guarding or rigidity. SPINE: No scoliosis or deformity SKIN: No rashes CENTRAL NERVOUS SYSTEM: No focal deficits, tone is normal in all 4 extremities. - Labs CBC & Chem 7: 10/23/16 06:52 10/23/16 06:52 Labs: Abnormal Lab Results - Last 24 Hours (Table) 10/23/16 10/23/16 10/23/16 Range/Units 06:52 06:52 06:52 WBC 16.4 H (3.8-10.6) k/uL RBC 3.85 L (4.30-5.90) m/uL Hgb 11.9 L (13.0-17.5) gm/dL Hct 36.4 L (39.0-53.0) % Neutrophils # 14.4 H (1.3-7.7) k/uL Lymphocytes # 0.9 L (1.0-4.8) k/uL PT 15.2 H (9.0-12.0) sec Sodium 133 L (137-145) mmol/L Creatinine 0.60 L (0.66-1.25) mg/dL Glucose 102 H (74-99) mg/dL Calcium 7.8 L (8.4-10.2) mg/dL Total Bilirubin 2.5 H (0.2-1.3) mg/dL AST 76 H (17-59) U/L ALT 640 H (21-72) U/L Total Protein 5.6 L (6.3-8.2) g/dL Albumin 2.8 L (3.5-5.0) g/dL Assessment and Plan Plan: Assessment #1 pericardial effusion status post pericardiostomy, patient had about 100 mL of blood from removed from the pericardial effusion. #2 A. fib with varying ventricular response patient is on oral amiodarone and is currently in a normal sinus rhythm #3 non-small cell lung cancer status post right lobectomy and chemotherapy last treatment in November 2015. Patient is being followed at [facility] for this. #4 acute exacerbation of COPD #5 rheumatoid arthritis on methotrexate and Plaquenil #6 history of 50+ year pack per day smoking quit in July 2015 #7 elevated liver enzymes suspect shock liver hepatitis screen has been negative Plan The patient is examined and evaluated in the selective care unit today. The patient is currently hemodynamically stable. The patient continues on 4 L of oxygen via nasal cannula. Continuing with his current medication, and antibiotis, including his nebulizer treatment is necessary. The patient should be encouraged to ambulate and use the incentive spirometer as well as cough and deep breathe. The and all labs were reviewed. We will continue to follow the patient and adjust treatment as necessary. I performed an examination of the patient and discussed their mangement with the nurse practitioner. I have reviewed the nurse practitioner's note and agree with the documented findings and plan of care.
--- NOTE | 2016-10-23 10:51 | P.PN ---
Subjective Patient presented with shortness of breath found to have a pericardial effusion. And is now status post pericardial window. Remains in the ICU. He is extubated. He is having episodes of paroxysmal atrial fibrillation in which she is still on the Cardizem drip at 10 mics an hour. Amiodarone has been switched to oral. Patient lying in bed comfortably. Denies any chest pain. Said improvement in his breathing. Denies any nausea or vomiting. Spent a couple a days since his last bowel movement. But he is passing gas no abdominal pain. Adequate urine output. 10/23/2016 patient currently in sixth floor. Lying in bed comfortably. He was able to ambulate with some shortness of breath in the hallway. He denies any chest pain. Denies any nausea or vomiting. Patient does report having a small bowel movement. Denies any difficulty urinating. product communications manager did check the cost of the Eliquis has a $40 co-pay. Patient is willing to pay this. Objective - Vital Signs Vital signs: Vital Signs Temp 97.2 F L 10/23/16 08:10 Pulse 84 10/23/16 09:07 Resp 18 10/23/16 08:10 BP 139/62 10/23/16 08:10 Pulse Ox 96 10/23/16 08:54 Intake & Output 10/22/16 10/23/16 10/23/16 18:59 06:59 18:59 Intake Total 654 150 Output Total 780 1150 Balance -126 -1000 Weight 82.1 kg Intake: Intake, IV Titration 50 Amount Phytonadione 2 mg In 50 Sodium Chloride 0.9% 50 ml @ 100 mls/hr IVPB ONCE STA Rx#:[id number] Oral 654 100 Output: Urine 780 1150 Other: Voiding Method Urinal Urinal # Voids 1 1 # Bowel Movements 0 ABP, PAP, CO, CI - Last Documented Arterial Blood Pressure 112/55 - Exam Head normocephalic Neck supple Lungs clear to auscultation bilaterally no wheezing or crackles. Dressing is clean dry and intact Heart regular rate and rhythm S1-S2, no rub or gallop Abdomen is soft nontender nondistended positive bowel sounds no hepatosplenomegaly Extremities no edema Neuro alert and orientated to 3 - Labs CBC & Chem 7: 10/23/16 06:52 10/23/16 06:52 Labs: Abnormal Lab Results - Last 24 Hours (Table) 10/23/16 10/23/16 10/23/16 Range/Units 06:52 06:52 06:52 WBC 16.4 H (3.8-10.6) k/uL RBC 3.85 L (4.30-5.90) m/uL Hgb 11.9 L (13.0-17.5) gm/dL Hct 36.4 L (39.0-53.0) % Neutrophils # 14.4 H (1.3-7.7) k/uL Lymphocytes # 0.9 L (1.0-4.8) k/uL PT 15.2 H (9.0-12.0) sec Sodium 133 L (137-145) mmol/L Creatinine 0.60 L (0.66-1.25) mg/dL Glucose 102 H (74-99) mg/dL Calcium 7.8 L (8.4-10.2) mg/dL Total Bilirubin 2.5 H (0.2-1.3) mg/dL AST 76 H (17-59) U/L ALT 640 H (21-72) U/L Total Protein 5.6 L (6.3-8.2) g/dL Albumin 2.8 L (3.5-5.0) g/dL Assessment and Plan Plan: 1. Large pericardial effusion: status post pericardial window postoperative day #6. 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 Oncology is following. Patient will follow-up with him in the office for further treatment recommendations. Cardiothoracic surgery following closely. Repeat echo shows a moderate pericardial effusion located near the left ventricle 2. Atrial fibrillation with rapid ventricular response: New onset, cardiology following closely. Currently on oral Cardizem and amiodarone. Cardiology is following will await their initiation of anticoagulation. Currently in sinus rhythm. 3. 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 oncology following 4. Acute liver failure with significant transaminitis: Likely secondary to liver congestion. Liver enzymes are trending down. Hepatitis panel was negative. 5. Coagulopathy with elevated INR: Secondary to acute liver failure would continue to monitor INR daily. She did receive vitamin K yesterday. INR is 1.6 6. Right lower lobe pneumonia on IV Levaquin 7. History of rheumatoid arthritis 8. History of prostate cancer with prior radiation therapy 9. Benign prostatic hyperplasia 10. Leukocytosis: Evaluated by infectious disease. Likely related to steroids , active cancer, recent surgery and significant stress of his current respiratory difficulties. Infectious diseases recommending Levaquin course for 5-7 days DVT prophylaxis subcu SCDs
--- NOTE | 2016-10-23 12:36 | P.PN ---
Subjective Principal diagnosis: Hypoxia This is a 80-year-old gentleman with history of COPD, gastroesophageal reflux disease, prostate cancer with previous radiation, rheumatoid arthritis, history of non-small cell lung CA status post right lobectomy and chemotherapy, a PET scan in July revealed increased size of the mediastinal lymph nodes as well as lesions in the right iliac bone. He presented to the hospital on this occasion with symptoms of shortness of breath. He was found to have a pericardial effusion and underwent pericardiostomy. Patient also has paroxysmal atrial fibrillation. This morning is mostly in normal sinus rhythm. Initiated today on Eliquis. Doing well overall, should be able to be discharged from cardiology's perspective. Objective - Vital Signs Vital signs: Vital Signs Temp 96.7 F L 10/23/16 11:15 Pulse 77 10/23/16 11:15 Resp 18 10/23/16 11:15 BP 131/63 10/23/16 11:15 Pulse Ox 98 10/23/16 11:15 Intake & Output 10/22/16 10/23/16 10/23/16 18:59 06:59 18:59 Intake Total 654 150 Output Total 780 1150 Balance -126 -1000 Weight 82.1 kg Intake: Intake, IV Titration 50 Amount Phytonadione 2 mg In 50 Sodium Chloride 0.9% 50 ml @ 100 mls/hr IVPB ONCE STA Rx#:[id number] Oral 654 100 Output: Urine 780 1150 Other: Voiding Method Urinal Urinal # Voids 1 1 # Bowel Movements 0 ABP, PAP, CO, CI - Last Documented Arterial Blood Pressure 112/55 - Exam PHYSICAL EXAMINATION: HEENT: Head is atraumatic, normocephalic. Pupils equal, round. Neck is supple. There is no elevated jugular venous pressure. HEART EXAMINATION: Heart S1, S2 normal. No murmur or gallop heard. CHEST EXAMINATION: Lungs reveal scattered coarse rhonchi throughout. ABDOMEN: Soft, nontender. Bowel sounds are heard. No organomegaly noted. EXTREMITIES: 2+ peripheral pulses with no evidence of peripheral edema and no calf tenderness noted. NEUROLOGIC patient is awake, alert and oriented -3. . - Labs CBC & Chem 7: 10/23/16 06:52 10/23/16 06:52 Labs: Abnormal Lab Results - Last 24 Hours (Table) 10/23/16 10/23/16 10/23/16 Range/Units 06:52 06:52 06:52 WBC 16.4 H (3.8-10.6) k/uL RBC 3.85 L (4.30-5.90) m/uL Hgb 11.9 L (13.0-17.5) gm/dL Hct 36.4 L (39.0-53.0) % Neutrophils # 14.4 H (1.3-7.7) k/uL Lymphocytes # 0.9 L (1.0-4.8) k/uL PT 15.2 H (9.0-12.0) sec Sodium 133 L (137-145) mmol/L Creatinine 0.60 L (0.66-1.25) mg/dL Glucose 102 H (74-99) mg/dL Calcium 7.8 L (8.4-10.2) mg/dL Total Bilirubin 2.5 H (0.2-1.3) mg/dL AST 76 H (17-59) U/L ALT 640 H (21-72) U/L Total Protein 5.6 L (6.3-8.2) g/dL Albumin 2.8 L (3.5-5.0) g/dL Assessment and Plan (1) H/O pericardiotomy Status: Acute (2) Non-small cell cancer of right lung Status: Acute (3) COPD (chronic obstructive pulmonary disease) Status: Acute (4) Prostate CA Status: Acute (5) Rheumatoid arthritis Status: Acute (6) Hx of nicotine dependence Status: Acute (7) Elevated liver enzymes Status: Acute (8) Pericardial effusion Status: Acute (9) Paroxysmal a-fib Narrative/Plan: New-onset atrial fibrillation, paroxysmal. Status: Acute Plan: From cardiology's perspective, start the patient on Eliquis 2-1/2 mg one tablet by mouth twice a day. He may be able to be discharged home from cardiology standpoint. We will make him a follow-up appointment with Dr. Maria Ines Morales in the office post discharge. He will continue on amiodarone 400 mg one tablet by mouth twice a day for one week then this will be decreased to 200 mg by mouth twice a day. DNP note has been reviewed, I agree with a documented findings and plan of care. Patient was seen and examined.
[2016-10-23] MEDS: LEVOFLOXACIN 750 MG TAB PO SCH (13:28)
[2016-10-23] MEDS: SODIUM CHLORIDE 0.9% 1,000 ML IV SCH (17:32)
[2016-10-23] MEDS: APIXABAN 2.5 MG TABLET PO SCH (21:17)
--- NOTE | 2016-10-23 22:20 | P.PN ---
Subjective Principal diagnosis: Shortness of breath 80 year old male with a history of lung carcinoma last year with lung resection of the right upper lobe. 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 He was treated with limited chemotherapy because of poor tolerance. And was being monitored. The patient then became quite short of breath. He presented to the emergency center. There because of his history of cancer a CTA was performed and there was evidence of a large pericardial effusion. 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 He is postoperative feeling considerably better. His water when he gets to go home. He is however wearing oxygen. Still has some shortness of breath. He then developed a significant leukocytosis and for that the infectious diseases consultation was requested. Patient is feeling better this evening, is having no further fevers or chills. Is feeling better since his pericardial and it was performed Objective - Vital Signs Vital signs: Vital Signs Temp 96.7 F L 10/23/16 11:15 Pulse 74 10/23/16 20:15 Resp 18 10/23/16 15:25 BP 124/58 10/23/16 15:25 Pulse Ox 94 L 10/23/16 15:25 Intake & Output 10/23/16 10/23/16 10/24/16 06:59 18:59 06:59 Intake Total 150 370 Output Total 1150 200 Balance -1000 170 Weight 82.1 kg Intake: Intake, IV Titration 50 Amount Phytonadione 2 mg In 50 Sodium Chloride 0.9% 50 ml @ 100 mls/hr IVPB ONCE STA Rx#:[id number] Oral 100 370 Output: Urine 1150 200 Other: Voiding Method Urinal # Voids 1 ABP, PAP, CO, CI - Last Documented Arterial Blood Pressure 112/55 - Exam Very pleasant 80-year-old male who is fortunately quite comfortable at this point in time. Mediastinal tube was removed. Shortness of breath has not recovered to baseline but feels better than admission. Looking forward to going home soon. Denies fevers, chills or rigors HEENT: Anicteric conjunctiva are pink and moist nasal mucosa grossly intact without significant lesions, there is no thrush. Poor dentition Neck: The neck is supple without significant lymphadenopathy or thyromegaly. Lungs: Symmetrical air entry. Few crackles are heard at the bilateral bases. Few expiratory wheezes are scattered. No bronchial sounds. No changes of egophony. Heart: Irregular with a soft S4 There is no significant murmur click or rub, PMI was nondisplaced. Abdomen: Positive bowel sounds soft and nontender without palpable masses or organomegaly. There was no guarding or rebound. Extremities: The upper extremities have excellent pulses they are symmetric, no significant petechiae or telangiectasia. No splinter hemorrhages were noted. The lower extremities are free from significant edema. The peripheral pulses were 2+ and symmetric. Neuro: Awake alert oriented to person place and time. There are no acute new gross focal sensory motor deficits. Skin the surgical site anterior chest wall is without significant drainage no erythema - Neurologic Neurologic Comment(s): Microbiology 10/17/16 12:20 Blood Blood Culture - Final No Growth after 144 hours 10/22/16 13:06 Blood Blood Culture - Preliminary No Growth after 24 hours 10/17/16 12:34 Blood Blood Culture - Final No Growth after 144 hours - Labs CBC & Chem 7: 10/23/16 06:52 10/23/16 06:52 Labs: Abnormal Lab Results - Last 24 Hours (Table) 10/23/16 10/23/16 10/23/16 Range/Units 06:52 06:52 06:52 WBC 16.4 H (3.8-10.6) k/uL RBC 3.85 L (4.30-5.90) m/uL Hgb 11.9 L (13.0-17.5) gm/dL Hct 36.4 L (39.0-53.0) % Neutrophils # 14.4 H (1.3-7.7) k/uL Lymphocytes # 0.9 L (1.0-4.8) k/uL PT 15.2 H (9.0-12.0) sec Sodium 133 L (137-145) mmol/L Creatinine 0.60 L (0.66-1.25) mg/dL Glucose 102 H (74-99) mg/dL Calcium 7.8 L (8.4-10.2) mg/dL Total Bilirubin 2.5 H (0.2-1.3) mg/dL AST 76 H (17-59) U/L ALT 640 H (21-72) U/L Total Protein 5.6 L (6.3-8.2) g/dL Albumin 2.8 L (3.5-5.0) g/dL Microbiology - Last 24 Hours (Table) 10/22/16 13:06 Blood Culture - Preliminary Blood No Growth after 24 hours Laboratory Results WBC 16.4 k/uL (3.8-10.6) H 10/23/16 06:52 RBC 3.85 m/uL (4.30-5.90) L 10/23/16 06:52 Hgb 11.9 gm/dL (13.0-17.5) L 10/23/16 06:52 Hct 36.4 % (39.0-53.0) L 10/23/16 06:52 MCV 94.4 fL (80.0-100.0) 10/23/16 06:52 MCH 30.9 pg (25.0-35.0) 10/23/16 06:52 MCHC 32.7 g/dL (31.0-37.0) 10/23/16 06:52 RDW 15.3 % (11.5-15.5) 10/23/16 06:52 Plt Count 226 k/uL (150-450) 10/23/16 06:52 Neutrophils % 88 % 10/23/16 06:52 Neutrophils % (Manual) 83.0 % 10/22/16 05:50 Lymphocytes % 5 % 10/23/16 06:52 Lymphocytes % (Manual) 7.5 % 10/22/16 05:50 Monocytes % 4 % 10/23/16 06:52 Monocytes % (Manual) 3.5 % 10/22/16 05:50 Eosinophils % 2 % 10/23/16 06:52 Eosinophils % (Manual) 3.0 % 10/22/16 05:50 Basophils % 0 % 10/23/16 06:52 Metamyelocytes % 1.5 % 10/22/16 05:50 Myelocytes % 1.5 % 10/22/16 05:50 Neutrophils # 14.4 k/uL (1.3-7.7) H 10/23/16 06:52 Neutrophils # (Manual) 15.3 k/uL (1.3-7.7) H 10/22/16 05:50 Lymphocytes # 0.9 k/uL (1.0-4.8) L 10/23/16 06:52 Lymphocytes # (Manual) 1.4 k/uL (1.0-4.8) 10/22/16 05:50 Monocytes # 0.6 k/uL (0-1.0) 10/23/16 06:52 Monocytes # (Manual) 0.6 k/uL (0-1.0) 10/22/16 05:50 Eosinophils # 0.3 k/uL (0-0.7) 10/23/16 06:52 Eosinophils # (Manual) 0.6 k/uL (0-0.7) 10/22/16 05:50 Basophils # 0.0 k/uL (0-0.2) 10/23/16 06:52 Nucleated RBCs 0 /100 WBC (0-0) 10/22/16 05:50 Toxic Granulation Present 10/22/16 05:50 Polychromasia Present 10/22/16 05:50 Hypochromasia Slight 10/23/16 06:52 Poikilocytosis (manual Present 10/22/16 05:50 Anisocytosis (manual) Present 10/22/16 05:50 Macrocytosis Slight 10/22/16 05:50 PT 15.2 sec (9.0-12.0) H 10/23/16 06:52 INR 1.6 (<1.1) 10/23/16 06:52 APTT 24.2 sec (22.0-30.0) 10/18/16 13:06 Sample Site [place] 10/18/16 15:39 ABG pH 7.45 (7.35-7.45) 10/18/16 15:39 ABG pCO2 30 mmHg (35-45) L 10/18/16 15:39 ABG pO2 134 mmHg (83-108) H 10/18/16 15:39 ABG HCO3 20 mmol/L (21-25) L 10/18/16 15:39 ABG Total CO2 21 mmol/L (19-24) 10/18/16 15:39 ABG O2 Saturation 99.0 % (94-97) H 10/18/16 15:39 ABG Base Excess -2.9 mmol/L 10/18/16 15:39 ABG Hematocrit 41 % (34.0-46.0) 10/18/16 11:07 FiO2 50 % 10/18/16 15:39 Sodium 133 mmol/L (137-145) L 10/23/16 06:52 Potassium 3.9 mmol/L (3.5-5.1) 10/23/16 06:52 Chloride 100 mmol/L (98-107) 10/23/16 06:52 Carbon Dioxide 22 mmol/L (22-30) 10/23/16 06:52 Anion Gap 11 mmol/L 10/23/16 06:52 BUN 13 mg/dL (9-20) 10/23/16 06:52 Creatinine 0.60 mg/dL (0.66-1.25) L 10/23/16 06:52 Est GFR (MDRD) Af Amer >60 (>60 ml/min/1.73 sqM) 10/23/16 06:52 Est GFR (MDRD) Non-Af >60 (>60 ml/min/1.73 sqM) 10/23/16 06:52 Glucose 102 mg/dL (74-99) H 10/23/16 06:52 POC Glucose (mg/dL) 95 mg/dL (75-99) 10/22/16 06:14 POC Glu Corn Husker Machine Operator ID Naila Grimaldo 10/22/16 06:[address] Glu mg/dL 117 mg/dL 10/17/16 12:34 Hemoglobin A1c 5.7 % (4.2-6.1) 10/17/16 12:34 Calcium 7.8 mg/dL (8.4-10.2) L 10/23/16 06:52 Ionized Calcium Billie 4.7 mg/dL (4.5-5.3) 10/19/16 04:50 Phosphorus 2.6 mg/dL (2.5-4.5) 10/23/16 06:52 Magnesium 1.7 mg/dL (1.6-2.3) 10/23/16 06:52 Total Bilirubin 2.5 mg/dL (0.2-1.3) H 10/23/16 06:52 Conjugated Bilirubin 0.0 mg/dL (0.0-0.3) 10/20/16 05:06 Unconjugated Bilirubin 1.2 mg/dL (0.0-1.1) H 10/20/16 05:06 Delta Bilirubin 1.1 mg/dL (0.0-0.2) H 10/20/16 05:06 AST 76 U/L (17-59) H 10/23/16 06:52 ALT 640 U/L (21-72) H 10/23/16 06:52 Alkaline Phosphatase 105 U/L (38-126) 10/23/16 06:52 Total Creatine Kinase 54 U/L (55-170) L 10/17/16 12:34 CK-MB (CK-2) 0.7 ng/mL (0.0-2.4) 10/17/16 12:34 CK-MB (CK-2) Rel Index 1.3 10/17/16 12:34 Troponin I <0.012 ng/mL (0.000-0.034) 10/17/16 12:34 NT-Pro-B Natriuret Pep 560 pg/mL 10/17/16 12:34 Total Protein 5.6 g/dL (6.3-8.2) L 10/23/16 06:52 Albumin 2.8 g/dL (3.5-5.0) L 10/23/16 06:52 Fluid Source Pericardial 10/18/16 11:35 Fluid Color Red 10/18/16 11:35 Fluid Appearance Bloody 10/18/16 11:35 Fluid RBC [id number] /uL 10/18/16 11:35 Fluid Nucleated Cells 4395 /uL 10/18/16 11:35 Fluid Polynuclear WBCs 67 % 10/18/16 11:35 Fluid Mononuclear WBCs 33 % 10/18/16 11:35 Fluid Comment 10/18/16 11:35 Hep Bs Antigen Negative 10/20/16 05:06 Hep C IgG Ab Negative (Negative) 10/20/16 05:06 Blood Type B Positive 10/17/16 22:05 Blood Type Confirm B Positive 10/17/16 12:34 Blood Type Recheck CABO Indicated 10/17/16 22:05 Antibody Screen NEGATIVE 10/17/16 22:05 Transfuse Plasma 10/18/16 10/18/16 08:33 Spec Expiration Date 10/20/2016 - 230410/17/16 22:05 Assessment and Plan (1) Leukocytosis Narrative/Plan: Very pleasant 80-year-old male presents to Hospital was having shortness of breath. With his history of right-sided lung carcinoma with partial pneumonectomy he underwent CT scanning. No evidence of a pulmonary embolus was found however a large pericardial effusion was noted. He was taken to the operating room and this has been drained. He is now feeling considerably better and the postoperative timeframe. She'll let us of breath is near his baseline. He is at having significant pain. He is wearing oxygen. He is inquiring if he will have that at home. At this time he was noticed evidence of any increase in his leukocyte count. Postoperatively it was around 15 and peaked at 18.4 today. It is noted that he did receive Solu-Medrol 40 mg dose. This likely was likely responsible for some of the increase of his current leukocytosis. He has multiple current factors that will also result in leukocytosis including his active cancer, recent surgery, and the significant stress of his current respiratory difficulties. He does not appear to have a significant pneumonia, and does not appear to have other significant source of infection at this time. Leukocytosis appears to be reactive in nature. It is improved to 16.4 today Would limit his course of levofloxacin to 5-7 days for exacerbation of his underlying COPD. Oncology follow-up is in process. Status: Acute (2) Pericardial effusion Status: Acute (3) Non-small cell cancer of right lung Status: Acute
[2016-10-24] MEDS: PANTOPRAZOLE 40 MG TABLET PO SCH (06:37)
[2016-10-24] MEDS: DILTIAZEM ORAL 30 MG TAB PO SCH (08:22)
[2016-10-24] MEDS: AMIODARONE 200 MG TAB PO SCH (08:22)
[2016-10-24] MEDS: APIXABAN 2.5 MG TABLET PO SCH (08:22)
[2016-10-24] MEDS: LEVALBUTEROL NEB (CONC) 1.25 MG/0.5 ML AMP INHALATION SCH (08:44)
[2016-10-24] MEDS: IPRATROPIUM 0.5 MG/2.5 ML NEBU INHALATION SCH ×2 (08:44→12:17)
[2016-10-24 08:56] VITALS: TEMP 97.1
--- NOTE | 2016-10-24 09:53 | P.PN ---
Subjective Principal diagnosis: Pericardial effusion Interval history: Patient is being reevaluated and examined today for pulmonary services. The patient is being seen on selective care he is alert awake and sitting up in chair, he just had breakfast and has a good appetite. He is much more rested today than yesterday. He denies any significant issues with his breathing, denies any cough or congestion. Patient has been using his incentive spirometer and is able to pull volumes of 1250. The patient had no acute events during the night. Objective - Vital Signs Vital signs: Vital Signs Temp 97.1 F L 10/24/16 08:00 Pulse 72 10/24/16 08:53 Resp 19 10/24/16 08:00 BP 123/60 10/24/16 08:00 Pulse Ox 96 10/24/16 08:48 Intake & Output 10/23/16 10/24/16 10/24/16 18:59 06:59 18:59 Intake Total 370 960 240 Output Total 200 1150 150 Balance 170 -190 90 Weight 82.1 kg Intake: Oral 370 960 240 Output: Urine 200 1150 150 Other: Voiding Method Urinal # Voids 1 1 1 ABP, PAP, CO, CI - Last Documented Arterial Blood Pressure 112/55 - Exam GENERAL EXAM: Alert, active, comfortable in no apparent distress. HEAD: Normocephalic. EYES: Normal reaction of pupils, equal size. NOSE: Clear with pink turbinates. THROAT: No erythema or exudates. NECK: No masses, no JVD. CHEST: No chest wall deformity. LUNGS: Clear with diminished bases CVS: S1 and S2 normal with no audible mumurs, regular rhythm. ABDOMEN: No hepatosplenomegaly, normal bowel sounds, no guarding or rigidity. SPINE: No scoliosis or deformity SKIN: No rashes CENTRAL NERVOUS SYSTEM: No focal deficits, tone is normal in all 4 extremities. - Labs CBC & Chem 7: 10/23/16 06:52 10/23/16 06:52 Labs: Microbiology - Last 24 Hours (Table) 10/22/16 13:06 Blood Culture - Preliminary Blood No Growth after 24 hours Assessment and Plan Plan: Assessment #1 pericardial effusion status post pericardiostomy, patient had about 100 mL of blood from removed from the pericardial effusion. #2 A. fib with varying ventricular response patient is on oral amiodarone and is currently in a normal sinus rhythm #3 non-small cell lung cancer status post right lobectomy and chemotherapy last treatment in November 2015. Patient is being followed at for this. #4 acute exacerbation of COPD #5 rheumatoid arthritis on methotrexate and Plaquenil #6 history of 50+ year pack per day smoking quit in July 2015 #7 elevated liver enzymes suspect shock liver hepatitis screen has been negative Plan The patient is examined and evaluated in the selective care unit today. The patient is currently hemodynamically stable. Patient can be cleared for discharge from a pulmonary standpoint. The patient should be encouraged to ambulate and use the incentive spirometer as well as cough and deep breathe. We will continue to follow up with the patient within 1 week of discharge. I performed an examination of the patient and discussed their mangement with the nurse practitioner. I have reviewed the nurse practitioner's note and agree with the documented findings and plan of care.
[2016-10-24 10:35] VITALS: PULSE 71; RESP 18
--- NOTE | 2016-10-24 12:13 | P.DS ---
Providers Date of admission: 10/17/16 14:24 Expected date of discharge: 10/24/16 Attending physician: Fercho Salomon Consults: 10/17/16 16:20 Consult Physician Stat Consulting Provider: Tanner Bravo Consult Reason/Comments: pericardial effusion Do you want consulting provider notified?: Yes 10/17/16 16:21 Consult Physician Stat Consulting Provider: Raad Stephens Consult Reason/Comments: pericardial effusion Do you want consulting provider notified?: Yes 10/17/16 16:26 Consult Physician Stat Consulting Provider: Omari Bravo Consult Reason/Comments: PNA/Pericardial effusion Do you want consulting provider notified?: Yes 10/17/16 22:02 Consult Physician Stat Consulting Provider: Bob Junior Consult Reason/Comments: Oncology Do you want consulting provider notified?: Already Contacted 10/22/16 12:42 Consult Physician Routine Consulting Provider: Alberto Javier Consult Reason/Comments: leukocytosis Do you want consulting provider notified?: Yes Primary care physician: Lisseth Mcginnis Hospital Course: Discharge diagnosis 1. 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 Oncology is following. Patient will follow-up with him in the office for further treatment recommendations. Cardiothoracic surgery following closely. Repeat echo shows a moderate pericardial effusion located near the left ventricle 2. Atrial fibrillation with rapid ventricular response: New onset, cardiology following closely. Currently on oral Cardizem and amiodarone. Cardiology is following will await their initiation of anticoagulation. Currently in sinus rhythm. 3. 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 oncology following 4. Acute liver failure with significant transaminitis: Likely secondary to liver congestion. Liver enzymes are trending down. Hepatitis panel was negative. 5. Coagulopathy with elevated INR: Secondary to acute liver failure would continue to monitor INR daily. She did receive vitamin K yesterday. INR is 1.6 6. Right lower lobe pneumonia on IV Levaquin 7. History of rheumatoid arthritis 8. History of prostate cancer with prior radiation therapy 9. Benign prostatic hyperplasia 10. Leukocytosis: Evaluated by infectious disease. Likely related to steroids , active cancer, recent surgery and significant stress of his current respiratory difficulties. Infectious diseases recommending Levaquin course for 5 Hospital course This is a 80-year-old male who presented with shortness of breath sound have evidence of pericardial effusion. Patient was evaluated and chest x-ray initially showed evidence of significant enlargement in the cardiac silhouette. He was thought that patient had pneumonia and was started on antibiotic. Computed tomography scan of the chest was obtained showing a large pericardial effusion. Patient remained hemodynamically stable. He was eventually transferred to the intensive care unit for close monitoring. Bedside echocardiogram was obtained showing preserved ejection fraction with large pericardial effusion and no evidence of temporal now. Cardiology and cardiothoracic surgery consulted. Patient required pericardial window. He remained in the ICU. Did have episode of atrial fibrillation with rapid which responded which was a new onset. Initially was on IV Cardizem and IV amiodarone. His wrist was over to oral. Patient was able to be transferred out of the ICU and his been an selective. He is doing well. Has been up and ambulating. Shortness breath has improved. The pathology report did confirm malignancy of adenocarcinoma from the pericardial window. Patient will follow- up with Dr. Junior for further regulation on chemotherapy in the outpatient setting. He also be following up with pulmonary service. Cardiology has adjusted medications. They are recommending amiodarone 400 mg twice a day for one week and then decreased to 200 mg twice a day. They have written a prescription for the amiodarone, Cardizem and Eliquis. Patient was also evaluated by infectious disease. He did have some leukocytosis and this is felt likely related to active to the steroids cancer and surgery. Infectious disease is recommending 5 more days of Levaquin. Patient is medically stable for discharge. He'll follow-up with consulting physicians an outpatient setting. Please refer to chart for any further details. Patient Condition at Discharge: Stable Plan - Discharge Summary New Discharge Prescriptions: Amiodarone [Cordarone] 400 mg PO BID #60 tab Apixaban [Eliquis] 2.5 mg PO BID #60 tablet Diltiazem Oral [Cardizem*] 30 mg PO TID #90 tab Levofloxacin [Levaquin] 500 mg PO DAILY #5 tab Discharge Medication List Omeprazole 20 mg PO DAILY 12/30/15 [History] Tamsulosin HCl [Flomax] 0.4 mg PO DAILY 12/30/15 [History] ALPRAZolam [Xanax] 0.5 mg PO DAILY PRN 10/17/16 [History] Acetaminophen [Tylenol] 500 mg PO Q4-6H PRN 10/17/16 [History] Albuterol Inhaler [Ventolin Hfa Inhaler] 2 puff INHALATION RT-Q4H PRN 10/17/16 [ History] Folic Acid 1 mg PO SUMOTUWEFRSA 10/17/16 [History] Hydroxychloroquine Sulfate [Plaquenil] 200 mg PO BID 10/17/16 [History] Methotrexate Sodium (Pf) [Methotrexate 25 mg/ml Vial] 25 mg INJ TH 10/17/16 [ History] Multivitamins, Thera [Multivitamin] 1 tab PO DAILY 10/17/16 [History] Amiodarone [Cordarone] 400 mg PO BID #60 tab 10/23/16 [Rx] Apixaban [Eliquis] 2.5 mg PO BID #60 tablet 10/23/16 [Rx] Diltiazem Oral [Cardizem*] 30 mg PO TID #90 tab 10/23/16 [Rx] Levofloxacin [Levaquin] 500 mg PO DAILY #5 tab 10/24/16 [Rx] Follow up Appointment(s)/Referral(s): Bob Junior MD [STAFF PHYSICIAN] - 10/31/16 10:30 am (at cancer center ) Yaima Morales MD [STAFF PHYSICIAN] - 10/30/16 9:45 am Omari Bravo MD [STAFF PHYSICIAN] - 10/30/16 12:00 pm Lisseth Mcginnis MD [Primary Care Provider] - 11/03/16 10:20 am [facility]iting Nurse, [NON-STAFF] - Patient Instructions/Handouts: Pericardial Effusion (DC) Activity/Diet/Wound Care/Special Instructions: *Matty brumfield @[facility] - fiber picker at time of discharge Home Oxygen - [facility] -[phone] Diet: Cardiac Activity: as tolerated Discharge Disposition: HOME SELF-CARE
[2016-10-24] MEDS: LEVOFLOXACIN 750 MG TAB PO SCH (12:15)
[2016-10-24 12:18] VITALS: BP 119/59
== END 2016-10-24 12:31 | disposition home health service (06) | DRG 826 ==
LOC: EC 11:39 → 5MS5E 14:24 → 6ICU 16:47 → 6SEL 10-21 18:59
PROVIDERS: ADMIT Internal Medicine; ATTEND Internal Medicine
PROC: 03HB33Z Insertion of Infusion Device into Right Radial Artery, Percutaneous Approach (ICD-10-PCS; 2016-10-18)
PROC: 0W9D0ZX Drainage of Pericardial Cavity, Open Approach, Diagnostic (ICD-10-PCS; principal; 2016-10-18 10:00)
PROC: 02BN0ZX Excision of Pericardium, Open Approach, Diagnostic (ICD-10-PCS; principal; 2016-10-18 10:00)
DX: C79.89 Secondary malignant neoplasm of other specified sites (principal); J18.9 Pneumonia, unspecified organism; I31.4 Cardiac tamponade; K72.00 Acute and subacute hepatic failure without coma; E87.2 Acidosis; D68.9 Coagulation defect, unspecified; I48.0 Paroxysmal atrial fibrillation; J44.0 Chronic obstructive pulmonary disease with (acute) lower respiratory infection; K76.1 Chronic passive congestion of liver; J44.1 Chronic obstructive pulmonary disease with (acute) exacerbation; I35.0 Nonrheumatic aortic (valve) stenosis; D02.21 Carcinoma in situ of right bronchus and lung; K21.9 Gastro-esophageal reflux disease without esophagitis; M06.9 Rheumatoid arthritis, unspecified; N40.0 Benign prostatic hyperplasia without lower urinary tract symptoms; R09.02 Hypoxemia; T38.0X5A Adverse effect of glucocorticoids and synthetic analogues, initial encounter; Z85.46 Personal history of malignant neoplasm of prostate; Z87.891 Personal history of nicotine dependence; Z90.2 Acquired absence of lung [part of]; Z92.21 Personal history of antineoplastic chemotherapy; Z92.3 Personal history of irradiation; Z79.899 Other long term (current) drug therapy
CPT/HCPCS: 36415; 71010; 71020; 71275; 76705; 80053; 81235; 82248; 82330; 82550; 82553; 82805; 83036; 83735; 83880; 84100; 84484; 85025; 85610; 85730; 86803; 86850; 86900; 86901; 87040; 87340; 88108; 88305; 88341; 88342; 89050; 93005; 93306; 93308; 94002; 94640; 94644; 94760; 96360; 99291